=== PATIENT | male | born 1970 | race Caucasian/White ===

== ENCOUNTER → 2018-04-13 12:25 | Outpatient (CLI) | payer OTHER, SELFPAY ==
--- NOTE | 2018-04-13 12:28 | RAD_ITS ---
STUDY: X-RAY - THORACIC SPINE REASON FOR EXAM: Male, 47 years old. Back pain. Injury. TECHNIQUE: 3 view(s) of the thoracic spine were obtained. COMPARISON: None. FINDINGS: Normal kyphosis of the thoracic spine. There is no substantial scoliosis. Normal thoracic vertebrae and endplates. Normal disc space heights. The soft tissue structures are unremarkable. RAD/Thoracic Spine 3 Views IMPRESSION: Normal x-ray examination of the thoracic spine. Electronically Signed: Frank Vivar MD at 23:08 EDT , Service support ,
--- NOTE | 2018-04-13 12:28 | RAD_ITS ---
STUDY: X-RAY - CERVICAL SPINE REASON FOR EXAM: Male, 47 years old. Neck and back pain. TECHNIQUE: 5 view(s) of the cervical spine were obtained. COMPARISON: None FINDINGS: Normal anterior atlantoaxial articulation. Normal odontoid process. Normal cervical lordosis. Normal vertebral bodies and endplates. Normal disc space heights. Normal visualized intervertebral neuroforamina. The soft tissue structures are unremarkable. There is no demonstrated fracture of the cervical spine. RAD/Cerv Spine 4 or 5 Views IMPRESSION: Normal x-ray examination of the visualized cervical spine. Electronically Signed: Frank Vivar MD at 23:21 EDT , Service support ,
--- NOTE | 2018-04-13 12:28 | CT_ITS ---
STUDY: CT BRAIN WITHOUT CONTRAST REASON FOR EXAM: Male, 47 years old. Nausea following a recent head injury.. RADIATION DOSAGE (If Supplied By Facility): CTDIvol = ( 44.99 ) mGy, DLP = ( 782.05 ) mGycm TECHNIQUE: Transaxial CT imaging of the brain was performed without administration of intravenous contrast material. Individualized dose optimization techniques were used for this CT. COMPARISON: None. FINDINGS: Focal soft tissue swelling overlying the left occipital bone. Normal calvarium. Normal size ventricles and extra-axial spaces for the patient's age. Normal white matter tracts of the cerebral hemispheres. Normal basal ganglia and thalami. Normal brainstem. Normal cerebellum. There is no intracranial hemorrhage. There are no findings of an acute ischemic infarction. Normal visualized paranasal sinuses. CT/Brain/Head without Contrast IMPRESSION: Normal unenhanced CT scan of the brain. Electronically Signed: Edmond Judd MD at 13:22 EDT Tel [phone], Service support ,
[2018-04-13 12:53] LABS: ALB/GLOB Ratio 1.2 RATIO (0.9-2.4); AST(SGOT) 13 U/L (15-37); Alanine Aminotransfer ALT/SGPT 23 U/L (16-61); Albumin, Serum 4.2 g/dL (3.2-5.0); Alkaline Phosphatase 52 U/L (45-117); Anion Gap 5 (5-15); BUN 16 mg/dL (7-18); BUN/Creat Ratio 13.4 RATIO (10-20); Chloride 103 mmol/L (98-107); Creatinine, Serum 1.19 mg/dL (0.70-1.30); EST Glomerular Filtration Rate 69 mL/min (>60); Est Glom Filt Rate - Afr Amer 84 mL/min (>60); Globulin 3.4 g/dL (2.2-4.2); Glucose 88 mg/dL (74-106); Protein, Total 7.6 g/dL (6.4-8.2); Sodium Level 139 mmol/L (136-145)
== END ==
PROVIDERS: Family Provider Internal Medicine; PCP Internal Medicine; Visit Provider Nurse Practitioner Gerontology
DX: S09.90XA Unspecified injury of head, initial encounter (principal); M54.2 Cervicalgia; M54.9 Dorsalgia, unspecified; R51 Headache
CPT/HCPCS: 70450; 72050; 72072; 80053

== ENCOUNTER → 2018-08-31 16:38 | Outpatient (CLI) | payer OTHER, SELFPAY ==
--- NOTE | 2018-08-31 16:43 | US_ITS ---
STUDY: SOFT TISSUE NECK ULTRASOUND REASON FOR EXAM: Male, 48 years old. Painful lump over left clavicle TECHNIQUE: Ultrasound evaluation of the soft tissues of the neck was performed with real-time and static beckman-scale imaging. COMPARISON: None. FINDINGS: There is a 1.1 x 0.9 cm vascular hypoechoic lesion in the soft tissues overlying the left clavicle. This may represent a lymph node. However, a soft tissue mass cannot be excluded. Further evaluation with CT is recommended. US/Head/Neck Soft Tissue IMPRESSION: 1.1 x 0.9 cm vascular hypoechoic lesion in the soft tissues overlying the left clavicle. This may represent a lymph node. However, a soft tissue mass cannot be excluded. Further evaluation with CT is recommended. Electronically Signed: Ashok Farnsworth, at 18:14 EST Tel , Service support ,
== END ==
PROVIDERS: Family Provider Internal Medicine; PCP Internal Medicine; Referring Provider Nurse Practitioner Gerontology; Visit Provider Nurse Practitioner Gerontology
DX: R22.1 Localized swelling, mass and lump, neck (principal)
CPT/HCPCS: 76536

== ENCOUNTER → 2018-09-15 14:41 | Outpatient (CLI) | payer OTHER, SELFPAY ==
--- NOTE | 2018-09-15 14:47 | CT_ITS ---
STUDY: CT SOFT TISSUE NECK WITH CONTRAST REASON FOR EXAM: Male, 48 years old. Left supraclavicular mass. RADIATION DOSAGE (If Supplied By Facility): CTDIvol = ( 15.12 ) mGy, DLP = ( 449.20 ) mGycm TECHNIQUE: The patient was scanned in a multi-detector CT scanner. High resolution transaxial imaging was performed following intravenous administration of 100ml ml of Isovue 300 contrast material. Sagittal and coronal images were reconstructed. Individualized dose optimization techniques were used for this CT. COMPARISON: None. FINDINGS: Normal bilateral parotid glands. Normal bilateral languages and literature instructor spaces. Normal bilateral parapharyngeal spaces. There is mild fullness of the left carotid space which may represent small nodes. No focal mass however is definitely identified. Normal bilateral sublingual and submandibular glands and spaces. Normal visualized nasopharynx. Normal retropharyngeal space. Normal perivertebral space. Normal visualized bilateral faucial tonsils. The visualized tongue, tongue base and oropharynx are normal. The visualized cervical lymph nodes (levels I-) are within normal size limits, and maintain normal morphology. There is a 2 cm nodule in the left supraclavicular region there is a visualized due to significant adjacent artifacts best seen on axial images 12-18 series 2 is also seen on coronal images 58-63 series 602. There is otherwise no abnormal contrast enhancement. Normal epiglottis, bilateral vallecula and hypopharynx. The pre-epiglottic and paraglottic adipose spaces are normal. Normal visualized bilateral piriform sinuses, aryepiglottic folds, vocal cords, and arytenoid-cricoid articulations. Normal subglottic trachea. Normal bilateral lobes of the thyroid gland. Normal visualized pulmonary apices. Normal visualized paranasal sinuses. Normal visualized cervical spine. CT/Soft Tissue Neck WITH Contrast IMPRESSION: 1. Small mass in the left supraclavicular region as described above corresponding to the palpable abnormality. Again could represent prominent node. Other etiologies are not excluded. 2. Probable small nodes on the left side of the neck. Electronically Signed: Cristóbal Kaur MD at 15:07 EST Tel , Service support ,
== END ==
PROVIDERS: Family Provider Internal Medicine; PCP Internal Medicine; Referring Provider Internal Medicine; Visit Provider Internal Medicine
DX: R22.1 Localized swelling, mass and lump, neck (principal)
CPT/HCPCS: 70491; Q9967

== ENCOUNTER 2018-09-28 11:06 | Day surgery (SDC) | payer OTHER, SELFPAY ==
[2018-09-22 14:58] VITALS: BMI 23.1
[2018-09-27 15:15] LABS: Erythrocyte Sedimentation Rate 2 mm/hr (0-15)
[2018-09-27 15:18] LABS: Absolute Lymphocyte Count 1.38 X10^3/ul (0.83-4.51); Absolute Neutrophil Count 2.8 X10^3/uL (2.0-7.7); Basophil# 0.02 X10^3/uL; Basophil% 0.4 % (0-1); Eosinophil# 0.09 X10^3/uL; Eosinophils% 1.8 % (0-5); Hematocrit 41.7 % (40-54); Hemoglobin 14.1 g/dl (13.0-16.5); Lymphocyte # 1.38 X10^3/ul (4.0); Mean Corp Hgb Conc 33.8 g/gl (32-36); Mean Corpuscular Hgb 31.3 pg (27.0-32.0); Mean Corpuscular Volume 92.7 fL (80-94); Mean Platelet Vol. 10.8 fl (6.2-12.0); Monocyte% 12.2 % (0-10); Neutrophil # 2.81 X10^3/uL (2.7-7.7); Neutrophil % 57.2 % (47-70); POSITIVE COUNT NO; POSITIVE DIFFERENTIAL NO; POSITIVE MORPHOLOGY NO; Platelet Count 285 K/mm3 (150-450); RBC Distribution Width CV 12.4 % (11.6-14.6); RBC Distribution Width SD 41.2 fl (35.1-43.9); White Blood Count 4.9 K/mm3 (4.4-11.0)
[2018-09-27 15:48] LABS: Anion Gap 6 (5-15); BUN 13 mg/dL (7-18); BUN/Creat Ratio 12.6 RATIO (10-20); Calcium,Total 8.9 mg/dL (8.5-10.1); Chloride 102 mmol/L (98-107); Creatinine, Serum 1.03 mg/dL (0.70-1.30); EST Glomerular Filtration Rate 82 mL/min (>60); Est Glom Filt Rate - Afr Amer 99 mL/min (>60); Glucose 59 mg/dL (74-106); Sodium Level 139 mmol/L (136-145)
[2018-09-28] VITALS (11 sets, daily range): BP systolic 85–129; BP diastolic 60–85; PULSE 52–66; RESP 16; TEMP 36.3–37.1; O2SAT 96–100; BMI 21.9
--- NOTE | 2018-09-28 | IMM_PTH ---
PATIENT: JAYDA CHONG LOC: [facility] [place] U#:[id number] AGE/SX: 48/M ROOM: RE09/28/[address]: Dr. Ricky Meyer MD : 1970 BED: DIS: 09/28/2018 SPEC #: [id number] RECD: 09/29/18 12:13 STATUS: LLOYD REFranki #: [id number] KAREN: 09/28/18 00:[address]: Ricky Meyer DEPT: IMMUNOHISTOCHEMISTRY RECD BY: Vanesa Rivas ENTERED: 09/29/18 12:16 SP TYPE: IMMUNO OTHR DR: Dr. Graciela Pedraza DO Tissues: Lymph node, NOS Procedures: CD138 (add) CD20 (add) CD3 (add) CD43 (add) CD45 (add) CD5 (add) CD79A (add) KI-67 (add) MACRO (add) P53 (add) Pankeratin (initial) PHYSICIAN & INSTITUTION [place] [phone] SPECIMEN INFORMATION: Tissue Source: Left supraclavicular lymph node Clinical Info: Supraclavicular adenopathy Specimen Number: [id number] #2 CPT code: 69258, 22394 x10 METHODOLOGY: Deparaffinized sections of prefer/formalin-fixed tissue or PAP/DQ stained slides are incubated with monoclonal/polyclonal antibodies/oligonucleotide probes. Localization is made via biotin free immunoperoxidase method. Appropriate controls are performed and reacted as expected. Results on target cell population are indicated in the following table: RESULTS: ANTIBODY / CLONE RESULT Block #2 AE1-3 (AE1/AE3/PCK26) negative CD3 (PS1) positive, zonal CD5 (SP10) positive, zonal CD20 (L26) positive, zonal CD43 (L60) positive, zonal CD45 (RP2/18) positive CD79a (11E3) positive, zonal CD138 (B-A38) positive, focal Macro (HAM-56) positive Ki-67 (30-9) positive, low P53 (DO-7) negative These tests were developed and their performance characteristics determined by [facility]. They may not have been cleared or approved by the U.S. Food and Drug Administration. The FDA has determined that such clearance or approval is not necessary. INTERPRETATION: Left supraclavicular lymph node, biopsy: Consistent with benign reactive lymph node tissue Commnet: Black pigment is present and is consistent with tattoo dye/pigment. Clinical correlation is suggested. AM:mayda 10/02/18
--- NOTE | 2018-09-28 13:39 | DCINST_ITS ---
Discharge Diet: Light diet - advance as tolerated - if you have questions about your diet instructions, please talk to you doctor. Discharge Activity: May Not Drive - for today or while taking narcotic pain medicine. May shower in (days): 1 Lifting Restrictions: 10 pounds Call your doctor if your incision/area has: Continuous Slow Oozing, Sudden Increased Bleeding, Increased Pain/ Swelling, Increased Redness, Foul Smelling Discharge Call your doctor if you observe: Fever of 101 or Higher Suture Line Care: Avoid Pulling/Pushing, Avoid Pinching/Bending Additional Dressing/Incision Instructions:: Change or remove dressing in 4 days. Leave steri-strips in place for 1 week. Allergies/Adverse Reactions: Allergies No Known Allergies Allergy (Verified 09/27/18 08:11) Medications to take at Discharge citalopram 40 mg tablet 40 mg PO DAILY 09/22/18 traMADol [Ultram (G)] 100 mg PO Q6H PRN PRN 09/27/18 Quinapril HCl 20 mg PO DAILY 09/28/18 Primary Care Physician: Graciela Pedraza DO [Primary Care Provider] - Test Results: Test results from this visit will be discussed in further detail at your follow- up appointment, if applicable. Please Follow Up With: Ricky Meyer MD - [phone] When: Call to make an appointment to be seen in about 7 days.
[2018-09-28] MEDS: Bupivacaine Mpf 0.5% 30 ML VIAL (13:45)
--- NOTE | 2018-09-28 13:55 | LYM_PTH ---
PATIENT: JAYDA CHONG [place] [facility] [place][id number] AGE/SX: 48/M ROOM: RE09/28/[address]: Dr. Ricky Meyer MD : 1970 BED: DIS: 09/28/2018 SPEC #: [id number] RECD: 09/28/18 14:10 STATUS: LLOYD CHIO #: [id number] KAREN: 09/28/18 13:[address]: Ricky Meyer DEPT: SURGICAL PATHOLOGY RECD BY: Romel Marcelino ENTERED: 09/29/18 04:56 SP TYPE: LYM NODES OTHR DR: Dr. Graciela Pedraza DO Tissues: Lymph node of neck, NOS Procedures: PAS Fungus (control) Special Stain Group I Surgery Specimen Level IV AFB Stain (control) Diff Quik Stain (control) H & E (control) HEADER OPERATION: Supraclavicular lymph node biopsy PRE-OP DIAGNOSIS: Supraclavicular adenopathy TISSUE SUBMITTED: Left supraclavicular lymph node sent fresh for lymph node protocol (patient has a large tattoo in that area) MICROSCOPIC DIAGNOSIS Left supraclavicular lymph node, biopsy: Acute inflammation with black pigment deposition. Focal necrotizing and non-necrotizing granulomatous inflammation. Negative for acid-fast bacilli and fungal organisms. No evidence of malignancy. AM:sai 09/29/18 COMMENT Immunohistochemistry ([id number]) supports the above diagnosis. There is no evidence of a lymphoproliferative disorder. FLOW analysis supports the above diagnosis. The complete flow report is viewable in patient's EMR. AFB and PASF stains with matched controls support the above diagnosis. Executive Secretary Social Welfare touch preps (H & E and Diff-Quik stains) are prepared and show a polymorphous lymphocytic population. Black pigment in the tissue is consistent with recent tattoo. Clinical correlation is suggested. MICROSCOPIC DESCRIPTION Slides are reviewed. GROSS DESCRIPTION Received fresh for lymph node protocol labeled with the patient's name is a specimen designated left lymph node, supraclavicular. The specimen consists of an ovoid piece of hargrove soft tissue with bluish-black dye discoloration measuring 1.5 x 1 x 1 cm. A section is submitted for flow cytometry studies. Four touch imprints are prepared, two stained with Diff-Quik and two stained with H & E. The entire specimen is submitted in two cassettes. / JOSE ALFREDO:sai 09/28/18 TC:2 CPT: 38260, 31222, 25672 x2
--- NOTE | 2018-09-28 14:13 | PCM.OPRPT ---
Problem List (1) Supraclavicular adenopathy Status: Acute Report of Operation Date of Procedure: 09/28/18 Pre-Operative Diagnosis: Left supraclavicular adenopathy Post-Operative Diagnosis: Same Surgery/Procedure Performed:: Excisional biopsy of left supraclavicular lymph node Description of Surgical Findings:: Timeout and informed consent was obtained. 48-year-old gent was taken to the operative room placed upon the table. He underwent monitored anesthesia care. Left supraclavicular area was sterilely prepped and draped with ChloraPrep. 1% lidocaine mixed 50-50 with 0.5% Marcaine was used as a local anesthetic. A total of 10 cc was used. A transverse incision was made directly over the lymph node. Sharp dissection carried down through the subcu tissue. Great care was taken to carefully spread to the chest to to avoid any neurovascular structures. A 2-0 Vicryl suture was placed in lymph node to use for retraction. Circumferential dissection performed. The became apparent that the lymph node appeared to be pigmented. Patient has a very large left anterior chest tattoo and significant proximity to this area. It is felt likely to have discoloration of the lymph node secondary to the tattoo. Using sharp dissection electrocautery dissection I was able to completely excise the palpable nodule again consistent with a lymph node. Hemostasis was intact. Fascial layers were approximated with interrupted 3-0 Vicryl. Subdermal edges approximate the same. Skin edges proximal a running septic or 4-0 Monocryl. Steri-Strip Telfa and OpSite dressings applied. Sponge and instrument and needle were reported to the surgeon to be correct. Blood loss was minimal. He tolerated procedure well without apparent complication. Specimen includes lymph node. Portion was sent for Gram stain culture and sensitivity aerobic anaerobic and fungal. Another portion was sent in saline for pathologic evaluation. Drains none. Blood loss minimal. Ricky Meyer M.D., F.A.C.S. Type of Anesthesia:: Local MAC Anesthesiologist: Oskar Salmon
--- OUTSIDE RECORDS SUMMARY | 2018-12-03 02:28 | XMS RPT_ITS | Continuity of Care Document ---
:1970 Author Organization [facility] Address [facility] [address] [place] [address] Phone Care Team Providers Name Role Phone Graciela Pedraza DO Unavailable Dr. 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) Status: Active Anxiety (F41.9, 300.00) Status: Active BMI 22.0-22.9, adult (Z68.22, V85.1) Status: Active BMI 23.0-23.9, adult (Z68.23, V85.1) Status: Active Decreased libido (R68.82, 799.81) Comments: will try 5mg celxa adn see if that helps if not pt willing to wean off bc thinks depressionis better with stressor better Status: Active Elevated right ventricular end-diastolic pressure (R94.30, 794.30) Comments: new dx-- do sleep study anival with h/o of wittnessed apnea and snoring Status: Active Encounter for routine history and physical exam for male (Z00.00, V70.0) Comments: will get colonscopy with colon cancer in family. will do psa. diong well. not using tobacco. drinking etoh less. Status: Active Encounter for screening for malignant neoplasm of prostate (Renamed from Screening for prostate cancer) (Z12.5, V76.44) Status: Active Encounter for well adult exam with abnormal findings (Renamed from Encounter for general adult medical examination with abnormal findings) (Z00.01, V70.0) Status: Active Family history of colon cancer (Z80.0, V16.0) Comments: pt last scope 2014- repeat in 5yrs - dr terry Status: Active Hematuria (R31.9, 599.70) Status: Active Hypertension, benign (I10, 401.1) Status: Active Influenza vaccination declined (Renamed from Refused influenza vaccine) (Z28.21, V64.06) Status: Active Mitral valve insufficiency and aortic valve insufficiency (I08.0, 396.3) Status: Active Non-smoker (Z78.9, V49.89) Status: Active Witnessed apneic spells (R06.81, 786.03) Comments: pt deferred any further w/u right now with work stress-- decided to ultimately not do Status: Active Medications Name Dates Details Accuretic 20-12.5 MG Oral Tablet 1 Tablet QD for 0 days Quantity: 90 {Tablet} Refills: 3 Ordered:17-May-2018 Ananya Pedraza DO, DO, Kathleen Start : 17-May-2018 Active Accuretic 20-12.5 MG Oral Tablet 1 Tablet QD for 30 days Quantity: 30 {Tablet} Refills: 5 Ordered:17-May-2018 Ananya Pedraza DO, DO, Kathleen Start : 17-May-2018 Active Citalopram Hydrobromide 10 MG Oral Tablet 1 (one) Tablet qhs for 0 days Quantity: 30 {Tablet} Refills: 3 Ordered:18-Jul-2018 Eli Huntley Start : 18-Jul-2018 Active ATIVAN, 0.5MG (Oral Tablet) 1 Tablet qd prn for 0 days Quantity: 20 {Tablet} Refills: 0 Ordered:12-Mar-2013 Ragini Young LPN Start : 29-Jun-2010 End : 12-Mar-2013 Inactive AUGMENTIN, 875-125MG (Oral Tablet) 1 (one) Tablet BID for 7 days Quantity: 14 {Tablet} Refills: 0 Ordered:29-Dec-2006 Eli Lacey Start : 29-Dec-2006 End : 06-Jan-2007 Inactive BLEPH-10, 10% (Ophthalmic Solution) 1 Drop(s) q2-3 hr x 7-10 days for 0 days Quantity: 1 {Solution} Refills: 0 Ordered:12-Mar-2013 Ragini Young LPN Start : 28-Aug-2012 End : 12-Mar-2013 Inactive CELEBREX, 200MG (Oral Capsule) 1 (one) Capsule daily for 0 days Quantity: 30 {Capsule} Refills: 0 Ordered:13-Jan-2015 Eli Huntley Start : 05-Jul-2014 End : 13-Jan-2015 Inactive CELEXA, 20MG (Oral Tablet) 1 (one) Tablet QD for 0 days Quantity: 30 {Tablet} Refills: 4 Ordered:12-Mar-2013 Ragini Young LPN Start : 21-Jul-2010 End : 12-Mar-2013 Inactive CYCLOBENZAPRINE HCL, 5MG (Oral Tablet) 1 (one) Tablet bid as needed for 0 days Quantity: 30 {Tablet} Refills: 0 Ordered:13-Jan-2015 Eli Huntley Start : 05-Jul-2014 End : 13-Jan-2015 Inactive Comments:Medication taken as needed. start once at night if needed DEPLIN, 15MG (Oral Tablet) 1 Tablet qd for 30 days Refills: 0 Ordered:21-Jul-2010 CAMACHO Mendes Start : 29-Jun-2010 End : 21-Jul-2010 Inactive No Known Historical Medications TAMIFLU, 75MG (Oral Capsule) 1 (one) Capsule bid for 5 days Quantity: 10 {Capsule} Refills: 0 Ordered:05-Jul-2014 Ananya Pedraza DO, DO, Kathleen Start : 10-Oct-2013 End : 15-Oct-2013 Inactive [place]-D 24 HOUR, 180-240MG (Oral Tablet Extended Release 24 Hour) 1 (one) Tablet ER 24HR Daily for 0 days Refills: 0 Ordered:21-Dec-2006 Eli Lacey Start : 21-Dec-2006 End : 11-May-2007 Discontinued BIAXIN XL, 500MG (Oral Tablet Extended Release 24 Hour) 2 (two) Tablet ER 24HR qd for 0 days Quantity: 20 {Tablet_ER_24HR} Refills: 0 Ordered:11-Oct-2007 CAMACHO Mendes Start : 11-Oct-2007 End : 04-Apr-2008 Discontinued FEXOFENADINE HCL, 180MG (Oral Tablet) 1 (one) Tablet Daily for 0 days Quantity: 30 {Tablet} Refills: 0 Ordered:29-Dec-2006 Eli Lacey Start : 29-Dec-2006 End : 11-May-2007 Discontinued LEXAPRO, 10MG (Oral Tablet) 1 Tablet Daily for 0 days Quantity: 30 {Tablet} Refills: 3 Ordered:20-Jul-2007 Vicky Waggoner Start : 20-Jul-2007 End : 11-Oct-2007 Discontinued NASACORT AQ, 55MCG/ACT (Nasal Aerosol Solution) 2 (two) [place](s) Daily for 0 days Quantity: 1 {Aerosol_Soln} Refills: 0 Ordered:21-Dec-2006 Eli Lacey Start : 21-Dec-2006 End : 11-May-2007 Discontinued PROVENTIL HFA, 108 (90 Base)MCG/ACT (Inhalation Aerosol Solution) 2 (two) Aerosol Soln qid prn for 0 days Quantity: 1 {Aerosol_Soln} Refills: 0 Ordered:11-Oct-2007 CAMACHO Mendes Start : 11-Oct-2007 End : 04-Apr-2008 Discontinued Allergies and Adverse Reactions Name Dates Details No Known Allergies (Allergy) Onset: 13-Jan-2015 Status: Active No Known Drug Allergies (Allergy) Status: Active Past Medical History Name Dates Details Acute sinusitis, unspecified (J01.90, 461.9) Comments: Another round of antibiotics Status: Resolved as of 27-Sep-2008 Allergic rhinitis (J30.9, 477.9) Status: Inactive as of 27-Sep-2008 Back pain (M54.9, 724.5) Status: Resolved as of 10-May-2018 Body aches (R52, 780.96) Status: Inactive as of 02-Apr-2016 Bronchitis, acute (J20.9, 466.0) Status: Resolved as of 27-Sep-2008 Chills (R68.83, 780.64) Status: Inactive as of 02-Apr-2016 Depressive disorder (F32.9, 311) Comments: better Status: Resolved as of 27-Sep-2008 Eustachian tube dysfunction (H69.80, 381.81) Status: Resolved as of 27-Sep-2008 Fever (R50.9, 780.60) Status: Inactive as of 02-Apr-2016 Head injury (S09.90XA, 959.01) Status: Resolved as of 10-May-2018 Headache (R51, 784.0) Status: Resolved as of 10-May-2018 Hypotension, unspecified (I95.9, 458.9) Status: Inactive as of 02-Apr-2016 Low back pain (M54.5, 724.2) Comments: had xray and taking advil seeing chiropracter, these not helpingrefrigerator vs man accident while lifting had PT from chiropractor then reinjured Status: Inactive as of 02-Apr-2016 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, 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) Status: Resolved as of 26-Apr-2016 Neck pain (M54.2, 723.1) Status: Resolved as of 10-May-2018 Other and unspecified alcohol dependence, unspecified drinking behavior (F10.20, 303.90) Status: Resolved as of 27-Sep-2008 Other anxiety states (F41.1, 300.09) Status: Resolved as of 02-Apr-2016 Other chest pain (R07.89, 786.59) Comments: [facility]--had stress 8- 08 negative Status: Resolved as of 27-Sep-2008 Other peripheral vertigo (H81.399, 386.19) Status: Resolved as of 27-Sep-2008 Pharyngitis, acute (J02.9, 462) Status: Inactive as of 02-Apr-2016 Serous conjunctivitis, unspecified laterality (H10.239, 372.01) Status: Inactive as of 02-Apr-2016 Stress reaction (F43.0, 308.9) Comments: wean celexa -- at least partially for now and see if helps libidio Status: Resolved as of 10-May-2018 Urine protein increased (R80.9, 791.0) Status: Inactive as of 30-May-2017 Weight loss (R63.4, 783.21) Comments: follow up in 1 month- if wt loss continues consider lab work uprelated to anxiety? Status: Resolved as of 27-Sep-2008 Wheezing (R06.2, 786.07) Status: Resolved as of 27-Sep-2008 WMV Comments: talk about upt to date had chol screen Status: Inactive as of 18-Feb-2009 Wrist pain (719.43) Comments: Ulner pain ? 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 [address] Brain/Head without Contrast MR#: [id number] Acct: [id number] Name: JAYDA JEFFERY Rep #: [id number] : 1970 M 47 From: Edmond Judd MD PCP: Graciela Pedraza DO Status: REG CLI Study: Brain/Head without Contrast Date of Exam: 04/13/18 Exam# [id number] Ordering Dr: Chayo Monet P-C STUDY: CT BRAIN WITHOUT CONTRAST REASON FOR EXAM: Male, 47 years old. Nausea following a recent head injury.. RADIATION DOSAGE (If Supplied By Facility): CTDIvol = ( 44.99 ) mGy, DLP = ( 782.05 ) mGycm TECHNIQUE: Transaxial CT imaging of the brain was performed without administration of intravenous contrast material. Individualized dose optimization techniques were used for this CT. COMPARI SON: None. FINDINGS: Focal soft tissue swelling overlying the left occipital bone. Normal calvarium. Normal size ventricles and extra-axial spaces for the patient's age. Normal white matter tracts of the cerebral hemispheres. Normal basal ganglia and thalami. Normal brainstem. Normal cerebellum. There is no intracranial hemorrhage. There are no findings of an acu te ischemic infarction. Normal visualized paranasal sinuses. CT/Brain/Head without Contrast IMPRESSION: Normal unenhanced CT scan of the brain. Electronically Signed: Edmond Judd MD at 13:22 EDT Tel [phone], Service support , CC: VIVIAN Monet; Graciela Pedraza DO Linen Room Custodian: Signed 13-Apr-2018 Cerv Spine 4 or 5 Views Result: Comments: See Note; NOTES: [facility] Imaging Services [address] [place] [address] Cerv Spine 4 or 5 Views MR#: [id number] Acct: [id number] Name: JAYDA JEFFERY Rep #: [id number] : 1970 M 47 From: Frank Vivar MD PCP: Graciela Pedraza DO Status: REG CLI Study: Cerv Spine 4 or 5 Views Date of Exam: 04/13/18 Exam# [id number] Ordering Dr: Chayo Monet STUD Y: X-RAY - CERVICAL SPINE REASON FOR EXAM: Male, 47 years old. Neck and back pain. TECHNIQUE: 5 view(s) of the cervical spine were obtained. COMPARISON: None FIND INGS: Normal anterior atlantoaxial articulation. Normal odontoid process. Normal cervical lordosis. Normal vertebral bodies and endplates. Normal disc space heights. Normal visualized intervertebral ne uroforamina. The soft tissue structures are unremarkable. There is no demonstrated fracture of the cervical spine. RAD/Cerv Spine 4 or 5 Views I MPRESSION: Normal x-ray examination of the visualized cervical spine. Electronically Signed: Frank Vivar MD at 23:21 EDT , Service support , Fax CC: VIVIAN Monet; Graciela Pedraza DO Linen Room Custodian: Signed 13-Apr-2018 Thoracic Spine 3 Views Result: Comments: See Note; NOTES: [facility] Imaging Services [address] [place] [address] Thoracic Spine 3 Views MR#: [id number] Acct: [id number] Name: JAYDA JEFFERY Rep #: [id number] : 1970 M 47 From: Frank Vivar MD PCP: Graciela Pedraza DO Status: REG CLI Study: Thoracic Spine 3 Views Date of Exam: 04/13/18 Exam# [id number] Ordering Dr: Chayo Monet STUDY: X-RAY - THORACIC SPINE REASON FOR EXAM: Male, 47 years old. Back pain. Injury. TECHNIQUE: 3 view(s) of the thoracic spine were obtained. COMPARISON: None. FINDIN GS: Normal kyphosis of the thoracic spine. There is no substantial scoliosis. Normal thoracic vertebrae and endplates. Normal disc space heights. The soft tissue structures are unremarkable. RAD/Thoracic Spine 3 Views IMPRESSION: Normal x-ray examination of the thoracic spine. Electronically Signed: Frank Vivar MD at 23:08 EDT , Service support , CC: MEMBERSHIP COUNSELORPadmini Monet; Graciela Pedraza DO Linen Room Custodian: Signed 13-May-2017 Echocardiogram Complete Result: Comments: See Note; NOTES: [facility] Cardiovascular Services [address] [place] [address] Echo Complete 05/13/17 1303 MR#: [id number] Acct: [id number] Name: JAYDA JEFFERY Rep #: [id number] : 1970 46 From: Leno Layne MD Attending Dr: Graciela Pedraza DO Status: REG CLI Ordering Dr: Graciela Pedraza DO Date: 05/13/17 Location: [facility] Sex: M C Admitted: [place] son For Study: MV Insufficiency Procedure This was a 2D Doppler, Color Flow transthoracic echocardiogram. The exam was of adequate technical quality. Exam performed in department. Left Ventricle Vanessa l LV size. Mild concentric left ventricular hypertrophy. Left ventricular systolic function is normal. The estimated ejection fraction is 65 %. No regional wall motion abnormalities noted. Right Ventri jazz Normal RV size. Normal systolic function. Atria Normal left atrium. Normal right atrium. No doppler evidence for ASD. Mitral Valve There is no mitral annular calcification. Mild mitral valve prola pse, posterior leaflet. Trivial mitral valve insufficiency. Tricuspid Valve Normal tricuspid valve. Trivial tricuspid valve insufficiency. Right ventricular systolic pressure estimated to be 36 mmHg. Aortic Valve Trisinus/trileaflet aortic valve. Normal aortic valve. Trivial aortic valve insufficiency. Pulmonic Valve Normal pulmonic valve. Trivial pulmonic valve insufficiency. Great Vessels Normal sized aortic root. Pericardium/Pleural No pericardial effusion. MMode/2D Measurements AND Calculations LVIDd: 4.4 cm IVSd: 1.3 cm Ao root diam: 3.5 cm LVIDs: 2.9 cm LVPWd: 1.3 cm RVDd: 3.4 cm FS: 34.0 % LAV(MOD-bp): 53.6 ml LA A4 area: 16.3 cm2 RA A4 area: 12.7 cm2 LAV(MOD-bp) Indexed: 27.4 ml/m2 LAV(MOD-sp2): 48.5 ml LAV(MOD-sp4): 49.6 ml Doppler Measurements AND Calculations MV E max linden: 61.7 cm/sec Lat Peak E' Linden: 9.8 cm/sec Med Peak E' Linden: 7.5 cm/sec MV A max linden: 50.1 cm/sec E/E' lat: 6.3 E/E' med: 8.2 MV E/ A: 1.2 Ao V2 max: 108.1 cm/sec LV V1 max: 93.4 cm/sec PA V2 max: 87.6 cm/sec Ao max P.7 mmHg LV V1 max P.5 mmHg PI end-d linden: 94.1 cm/sec TR max linden: 286.4 cm/sec TR max P.8 mmHg Interpretation Summary Left ventricular systolic function is normal. The estimated ejection fraction is 65 %. Mild concentric left ventricular hypertrophy. Mild mitral valve prolapse, posterior leaflet Trivial mitral valve insufficiency. Trivial tric uspid valve insufficiency. Trivial aortic valve insufficiency. Trivial pulmonic valve insufficiency. Right ventricular systolic pressure estimated to be 36 mmHg. Ordering Physician: Graciela Pedraza Performed By: Irma Carrasco RDCS, RVT 05/13/17 165 Date Leno Layne MD CC: Graciela Pedraza DO Date Dictated: 05/13/17 1303 Date Transcribed: 05/13/17 1928 Linen Room Custodian: Signed 02-Apr-2016 ELECTROCARDIOGRAM, COMPLETE (ECG) (33470) Comments: nsr no acute chg Result: [MEASUREMENTS ANALYSIS] Date of Test: 04/02/2016 14:47:54; Heart Rate: 81; IN Interval: 126; QRS: 92; QT Interval: 360; Corrected QT Interval (QTc): 396; P Wave Kellogg: 30; QRS Wave Kellogg: 27; T Wave Kellogg: -1; Blood Pressure: 148/102 [ECG DIAGNOSTIC STATEMENTS] Date of Test: 04/02/2016 14:47:54; Summary: Sinus Rhythm WITHIN NORMAL LIMITS Family History Unknown Family Member Name Dates Details Brother 1 Comments: older, heart palp, Status: Active Brother 2 Comments: healthy Status: Active Family Members In General Comments: HBP, Heart/Lung disease Status: Active Father Comments: htn, CAD/CAB start 50's Status: Active Mother Comments: colon cancer, migraines HTN, depression, Status: Active Sister 1 Comments: colon cancer at 49 yo Status: Active Social History Name Dates Details Alcohol Use Comments: use to binge more now on weekends may have 6 beers. much better than was. more social Status: Active Caffeine Use Comments: 2 QD Status: Active Exercise History Comments: Light, walks at work Status: Active Living Situation Comments: Lives with spouse Status: Active Most Recent Primary Occupation Comments: workign for [employer]. Status: Active No Drug Use Status: Active Number of Child (age 0-17) Dependents Comments: 1 Status: Active Tobacco Use Comments: Uses chewing tobacco - Not often--quit 2005 Status: Active Vital Signs Date Test Result Details [id number] Pulse 68 /min Comments: Pattern: Regular Respiration Rate 18 /min Comments: Pattern: Unlabored O2 SAT 98 % Comments: Room air BP Systolic 118 mm[Hg] Comments: Patient Position: Sitting; Cuff Location: Left Arm; Cuff Size: Large BP Diastolic 68 mm[Hg] Comments: Patient Position: Sitting; Cuff Location: Left Arm; Cuff Size: Large Weight 156 lb Height 71 in Body Mass Index Calculated 21.76 kg/m2 Body Surface Area Calculated 1.9 m2 :04 Temperature 97.5 f Comments: Method: Temporal Pulse 75 /min Comments: Pattern: Regular Respiration Rate 17 /min Comments: Pattern: Unlabored O2 SAT 98 % Comments: Room air BP Systolic 124 mm[Hg] Comments: Patient Position: Sitting; Cuff Location: Left Arm; Cuff Size: Standard BP Diastolic 78 mm[Hg] Comments: Patient Position: Sitting; Cuff Location: Left Arm; Cuff Size: Standard Weight 161.5 lb Height 71 in Body Mass Index Calculated 22.52 kg/m2 Body Surface Area Calculated 1.93 m2 :39 Pulse 71 /min Comments: Pattern: Regular Respiration Rate 18 /min Comments: Pattern: Unlabored O2 SAT 97 % Comments: Room air BP Systolic 124 mm[Hg] Comments: Patient Position: Sitting; Cuff Location: Left Arm; Cuff Size: Large BP Diastolic 82 mm[Hg] Comments: Patient Position: Sitting; Cuff Location: Left Arm; Cuff Size: Large Weight 161.5 lb Height 71 in Body Mass Index Calculated 22.52 kg/m2 Body Surface Area Calculated 1.93 m2 :55 Pulse 71 /min Comments: Pattern: Regular Respiration Rate 18 /min Comments: Pattern: Unlabored O2 SAT 97 % Comments: Room air BP Systolic 122 mm[Hg] Comments: Patient Position: Sitting; Cuff Location: Left Arm; Cuff Size: Standard BP Diastolic 70 mm[Hg] Comments: Patient Position: Sitting; Cuff Location: Left Arm; Cuff Size: Standard Weight 159 lb Height 71 in Body Mass Index Calculated 22.18 kg/m2 Body Surface Area Calculated 1.91 m2 :17 Pulse 82 /min Comments: Pattern: Regular Respiration Rate 18 /min Comments: Pattern: Unlabored O2 SAT 97 % Comments: Room air BP Systolic 110 mm[Hg] Comments: Patient Position: Sitting; Cuff Location: Left Arm; Cuff Size: Standard BP Diastolic 68 mm[Hg] Comments: Patient Position: Sitting; Cuff Location: Left Arm; Cuff Size: Standard Weight 164.375 lb Height 71 in Body Mass Index Calculated 22.93 kg/m2 Body Surface Area Calculated 1.94 m2 :37 Pulse 87 /min Comments: Pattern: Regular Respiration Rate 18 /min Comments: Pattern: Unlabored O2 SAT 98 % Comments: Room air BP Systolic 122 mm[Hg] Comments: Patient Position: Sitting; Cuff Location: Left Arm; Cuff Size: Large BP Diastolic 80 mm[Hg] Comments: Patient Position: Sitting; Cuff Location: Left Arm; Cuff Size: Large Weight 167.125 lb Height 71 in Body Mass Index Calculated 23.31 kg/m2 Body Surface Area Calculated 1.95 m2 :46 Pulse 77 /min Comments: Pattern: Regular Respiration Rate 18 /min Comments: Pattern: Unlabored O2 SAT 98 % Comments: Room air BP Systolic 128 mm[Hg] Comments: Patient Position: Sitting; Cuff Location: Left Arm; Cuff Size: Large BP Diastolic 82 mm[Hg] Comments: Patient Position: Sitting; Cuff Location: Left Arm; Cuff Size: Large Weight 165.25 lb Height 71 in Body Mass Index Calculated 23.05 kg/m2 Body Surface Area Calculated 1.94 m2 :50 Pulse 18 /min Comments: Pattern: Regular Respiration Rate 18 /min Comments: Pattern: Unlabored O2 SAT 97 % Comments: Room air BP Systolic 148 mm[Hg] Comments: Patient Position: Sitting; Cuff Location: Left Arm; Cuff Size: Standard BP Diastolic 102 mm[Hg] Comments: Patient Position: Sitting; Cuff Location: Left Arm; Cuff Size: Standard Weight 166.25 lb Height 71 in Body Mass Index Calculated 23.19 kg/m2 Body Surface Area Calculated 1.95 m2 :55 Pulse 83 /min Comments: Pattern: Regular Respiration Rate 16 /min Comments: Pattern: Unlabored O2 SAT 98 % Comments: Room air BP Systolic 122 mm[Hg] Comments: Patient Position: Sitting; Cuff Location: Left Arm; Cuff Size: Standard BP Diastolic 86 mm[Hg] Comments: Patient Position: Sitting; Cuff Location: Left Arm; Cuff Size: Standard Weight 164 lb Height 71 in Body Mass Index Calculated 22.87 kg/m2 Body Surface Area Calculated 1.94 m2 :20 Temperature 97.6 f Comments: Method: Temporal Pulse 83 /min Comments: Pattern: Regular Respiration Rate 18 /min Comments: Pattern: Unlabored O2 SAT 98 % Comments: Room air BP Systolic 142 mm[Hg] Comments: Patient Position: Sitting; Cuff Location: Left Arm; Cuff Size: Standard BP Diastolic 90 mm[Hg] Comments: Patient Position: Sitting; Cuff Location: Left Arm; Cuff Size: Standard Weight 158 lb Height 71 in Body Mass Index Calculated 22.04 kg/m2 Body Surface Area Calculated 1.91 m2 :52 Temperature 99.8 f Comments: Method: Oral Pulse 94 /min Comments: Pattern: Regular Respiration Rate 18 /min Comments: Pattern: Unlabored O2 SAT 98 % Comments: Room air BP Systolic 126 mm[Hg] Comments: Patient Position: Sitting; Cuff Location: Left Arm; Cuff Size: Large BP Diastolic 88 mm[Hg] Comments: Patient Position: Sitting; Cuff Location: Left Arm; Cuff Size: Large Weight 159.125 lb Height 71 in Body Mass Index Calculated 22.19 kg/m2 Body Surface Area Calculated 1.91 m2 :15 Temperature 99.2 f Comments: Method: Oral Pulse 84 /min Comments: Pattern: Regular Respiration Rate 16 /min O2 SAT 98 % Comments: Room air BP Systolic 138 mm[Hg] Comments: Patient Position: Sitting; Cuff Location: Left Arm; Cuff Size: Standard BP Diastolic 90 mm[Hg] Comments: Patient Position: Sitting; Cuff Location: Left Arm; Cuff Size: Standard Weight 159.125 lb Height 71 in Body Mass Index Calculated 22.19 kg/m2 Body Surface Area Calculated 1.91 m2 :55 Temperature 98.7 f Comments: Method: Oral Pulse 78 /min Comments: Pattern: Regular Respiration Rate 15 /min O2 SAT 98 % Comments: Room air BP Systolic 142 mm[Hg] Comments: Patient Position: Sitting; Cuff Location: Left Arm; Cuff Size: Standard BP Diastolic 88 mm[Hg] Comments: Patient Position: Sitting; Cuff Location: Left Arm; Cuff Size: Standard Weight 148.125 lb Height 71 in Body Mass Index Calculated 20.66 kg/m2 Body Surface Area Calculated 1.86 m2 :44 Pulse 80 /min Comments: Pattern: Regular Respiration Rate 20 /min Comments: Pattern: Unlabored BP Systolic 122 mm[Hg] Comments: Patient Position: Sitting; Cuff Location: Left Arm; Cuff Size: Large BP Diastolic 82 mm[Hg] Comments: Patient Position: Sitting; Cuff Location: Left Arm; Cuff Size: Large Weight 148.125 lb Height 71 in Body Mass Index Calculated 20.66 kg/m2 Body Surface Area Calculated 1.86 m2 :44 Pulse 76 /min Comments: Pattern: Regular Respiration Rate 16 /min Comments: Pattern: Unlabored BP Systolic 140 mm[Hg] Comments: Patient Position: Sitting; Cuff Location: Left Arm; Cuff Size: Standard BP Diastolic 88 mm[Hg] Comments: Patient Position: Sitting; Cuff Location: Left Arm; Cuff Size: Standard Weight 148 lb Height 0 in Head Circumference 0.00 cm :04 Temperature 98.2 f Comments: Method: Oral Pulse 80 /min Comments: Pattern: Regular Respiration Rate 16 /min Comments: Pattern: Unlabored BP Systolic 110 mm[Hg] Comments: Patient Position: Sitting; Cuff Location: Left Arm; Cuff Size: Standard BP Diastolic 74 mm[Hg] Comments: Patient Position: Sitting; Cuff Location: Left Arm; Cuff Size: Standard Weight 146 lb Height 0 in Head Circumference 0.00 cm :18 Temperature 97.5 f Comments: Method: Oral Pulse 80 /min Comments: Pattern: Regular Respiration Rate 16 /min Comments: Pattern: Unlabored BP Systolic 122 mm[Hg] Comments: Patient Position: Sitting; Cuff Location: Right Arm; Cuff Size: Standard BP Diastolic 88 mm[Hg] Comments: Patient Position: Sitting; Cuff Location: Right Arm; Cuff Size: Standard Weight 0 lb Height 0 in Head Circumference 0.00 cm :05 Temperature 98.4 f Comments: Method: Oral Pulse 74 /min Comments: Pattern: Regular Respiration Rate 18 /min Comments: Pattern: Unlabored BP Systolic 130 mm[Hg] Comments: Patient Position: Sitting; Cuff Location: Left Arm; Cuff Size: Standard BP Diastolic 84 mm[Hg] Comments: Patient Position: Sitting; Cuff Location: Left Arm; Cuff Size: Standard Weight 147 lb Height 0 in Head Circumference 0.00 cm :10 Temperature 98.2 f Comments: Method: Undefined Pulse 74 /min Comments: Pattern: Regular Respiration Rate 16 /min Comments: Pattern: Undefined BP Systolic 110 mm[Hg] Comments: Patient Position: Sitting; Cuff Location: Left Arm; Cuff Size: Standard BP Diastolic 72 mm[Hg] Comments: Patient Position: Sitting; Cuff Location: Left Arm; Cuff Size: Standard Weight 143.0625 lb Height 0 in Head Circumference 0.00 cm :33 Temperature 99 f Comments: Method: Oral Pulse 72 /min Comments: Pattern: Regular Respiration Rate 20 /min Comments: Pattern: Unlabored BP Systolic 134 mm[Hg] Comments: Patient Position: Sitting; Cuff Location: Left Arm; Cuff Size: Standard BP Diastolic 78 mm[Hg] Comments: Patient Position: Sitting; Cuff Location: Left Arm; Cuff Size: Standard Weight 143.0625 lb Height 71 in Body Mass Index Calculated 19.95 kg/m2 Body Surface Area Calculated 1.83 m2 Head Circumference 0.00 cm :04 Temperature 98 f Comments: Method: Oral Pulse 84 /min Comments: Pattern: Regular Respiration Rate 16 /min Comments: Pattern: Unlabored BP Systolic 118 mm[Hg] Comments: Patient Position: Sitting; Cuff Location: Left Arm; Cuff Size: Standard BP Diastolic 70 mm[Hg] Comments: Patient Position: Sitting; Cuff Location: Left Arm; Cuff Size: Standard Weight 146 lb Height 0 in Head Circumference 0.00 cm :57 Pulse 84 /min Comments: Pattern: Regular BP Systolic 140 mm[Hg] Comments: Patient Position: Standing; Cuff Location: Right Arm; Cuff Size: Standard BP Diastolic 80 mm[Hg] Comments: Patient Position: Standing; Cuff Location: Right Arm; Cuff Size: Standard Weight 0 lb Height 0 in Head Circumference 0.00 cm :56 Pulse 68 /min Comments: Pattern: Regular BP Systolic 140 mm[Hg] Comments: Patient Position: Supine; Cuff Location: Right Arm; Cuff Size: Standard BP Diastolic 86 mm[Hg] Comments: Patient Position: Supine; Cuff Location: Right Arm; Cuff Size: Standard Weight 0 lb Height 0 in Head Circumference 0.00 cm :56 Pulse 80 /min Comments: Pattern: Regular BP Systolic 142 mm[Hg] Comments: Patient Position: Sitting; Cuff Location: Right Arm; Cuff Size: Standard BP Diastolic 94 mm[Hg] Comments: Patient Position: Sitting; Cuff Location: Right Arm; Cuff Size: Standard Weight 0 lb Height 0 in Head Circumference 0.00 cm :18 Temperature 98.7 f Comments: Method: Oral Pulse 72 /min Comments: Pattern: Regular Respiration Rate 14 /min Comments: Pattern: Unlabored BP Systolic 130 mm[Hg] Comments: Patient Position: Sitting; Cuff Location: Left Arm; Cuff Size: Standard BP Diastolic 80 mm[Hg] Comments: Patient Position: Sitting; Cuff Location: Left Arm; Cuff Size: Standard Weight 0 lb Height 0 in Head Circumference 0.00 cm :04 Temperature 97.6 f Comments: Method: Oral Pulse 74 /min Comments: Pattern: Regular Respiration Rate 20 /min Comments: Pattern: Unlabored BP Systolic 110 mm[Hg] Comments: Patient Position: Sitting; Cuff Location: Left Arm; Cuff Size: Standard BP Diastolic 76 mm[Hg] Comments: Patient Position: Sitting; Cuff Location: Left Arm; Cuff Size: Standard Weight 155 lb Height 0 in Head Circumference 0.00 cm [id number] Temperature 98.1 f Comments: Method: Oral Pulse 72 /min Comments: Pattern: Regular Respiration Rate 18 /min Comments: Pattern: Unlabored BP Systolic 150 mm[Hg] Comments: Patient Position: Sitting; Cuff Location: Left Arm; Cuff Size: Standard BP Diastolic 108 mm[Hg] Comments: Patient Position: Sitting; Cuff Location: Left Arm; Cuff Size: Standard Weight 155.5625 lb Height 0 in Head Circumference 0.00 cm Results Date Description Value Details [id number] Comprehensive Metabolic Profil Comments: Order Date: 04/13/18Order Info: [id number] - [facility] [address] [place], [address] GAP 5 (Normal) Range: 5-15 CO2 31.0 mmol/L (Normal) Range: 21.0-32.0 CL 103 mmol/L (Normal) Range: 98-107 K 4.0 mmol/L (Normal) Range: 3.5-5.1 NA 139 mmol/L (Normal) Range: 136-145 T BILI 0.50 mg/dL (Normal) Range: 0.20-1.00 ALT 23 U/L (Normal) Range: 16-61 ALK P 52 U/L (Normal) Range: 45-117 AST 13 U/L (Abnormal) Range: 15-37 CA 9.0 mg/dL (Normal) Range: 8.5-10.1 A/G 1.2 {RATIO} (Normal) Range: 0.9-2.4 GLOB 3.4 g/dL (Normal) Range: 2.2-4.2 ALB 4.2 g/dL (Normal) Range: 3.2-5.0 T PROT 7.6 g/dL (Normal) Range: 6.4-8.2 BUN/CRE 13.4 {RATIO} (Normal) Range: 10-20 EST GFR - AA 84 mL/min (Normal) Comments: GFR Calc EST GFR 69 mL/min (Normal) Comments: Non- GFR Calc CREAT,SERUM 1.19 mg/dL (Normal) Range: 0.70-1.30 Comments: The validity of the calculated GFR AND GFRAA in patients over70 years has not been determined. Clinical correlation isessential. BUN 16 mg/dL (Normal) Range: 7-18 GLU 88 mg/dL (Normal) Range: 74-106 Comments: Please note revised GLUCOSE reference range eatgglhol47/02/2018. [id number] Urinalysis, Office (04929) UA - LEUKOCYTE ESTERASE Negative (Normal) UA - NITRITE Negative (Normal) URINE UROBILINGN AMARIS TIMED Normal mg/dL (Normal) UA - PROTEIN Negative mg/dL (Normal) UA - PH 7.0 (Normal) UA - BLOOD Negative (Normal) UA - SPECIFIC GRAVITY 1.010 (Normal) UA - KETONES Negative mg/dL (Normal) UA - BILIRUBIN Negative (Normal) UA - GLUCOSE Negative (Normal) :52 CBC W/Diff, Automated Comments: [facility] [address] [facility] [place], [place], [id number] Absolute Lymph 1.66 {X10_3/ul} (Normal) Range: 0.83-4.51 Absolute Neut 2.2 {X10_3/uL} (Normal) Range: 2.0-7.7 IM GRAN % 0.200 % (Normal) Range: 0.0-0.9 Comments: IG% - Immature Granulocytes (promyelocytes, myelocytes andmetamyelocytes) > 1% indicates that a LEFT SHIFT is Present. BASO% 0.4 % (Normal) Range: 0-1 EO% 1.8 % (Normal) Range: 0-5 MONO% 11.9 % (Abnormal) Range: 0-10 LY% 37.1 % (Normal) Range: 19-41 NEUT% 48.6 % (Normal) Range: 47-70 MPV 11.1 fL (Normal) Range: 6.2-12.0 PLT 218 K/mm3 (Normal) Range: 150-450 RDW SD 41.7 fL (Normal) Range: 35.1-43.9 RDW CV 12.5 % (Normal) Range: 11.6-14.6 MCHC 35.1 {g/gl} (Normal) Range: 32-36 MCH 31.8 pg (Normal) Range: 27.0-32.0 MCV 90.6 fL (Normal) Range: 80-94 HCT 46.4 % (Normal) Range: 40-54 HGB 16.3 g/dL (Normal) Range: 13.0-16.5 RBC 5.12 {M/mm3} (Normal) Range: 4.6-6.2 WBC 4.5 K/mm3 (Normal) Range: 4.4-11.0 :52 Comprehensive Metabolic Profil Comments: [facility] [address] [place], [place], [id number] GAP 6 (Normal) Range: 5-15 CO2 28.0 mmol/L (Normal) Range: 21.0-32.0 CL 101 mmol/L (Normal) Range: 98-107 K 3.8 mmol/L (Normal) Range: 3.5-5.1 NA 135 mmol/L (Abnormal) Range: 136-145 T BILI 0.70 mg/dL (Normal) Range: 0.20-1.00 ALT 27 U/L (Normal) Range: 12-78 ALK P 53 U/L (Normal) Range: 50-136 AST 14 U/L (Abnormal) Range: 15-37 CA 8.7 mg/dL (Normal) Range: 8.5-10.1 A/G 1.2 {RATIO} (Normal) Range: 0.9-2.4 GLOB 3.5 g/dL (Normal) Range: 2.3-3.5 ALB 4.2 g/dL (Normal) Range: 3.4-5.0 T PROT 7.7 g/dL (Normal) Range: 6.4-8.2 BUN/CRE 10.7 {RATIO} (Normal) Range: 10-20 EST GFR - AA 83 mL/min (Normal) Comments: GFR Calc EST GFR 69 mL/min (Normal) Comments: Non- GFR Calc CREAT,SERUM 1.21 mg/dL (Normal) Range: 0.70-1.30 Comments: The validity of the calculated GFR AND GFRAA in patients over70 years has not been determined. Clinical correlation isessential. BUN 13 mg/dL (Normal) Range: 7-18 GLU 83 mg/dL (Normal) Range: 70-110 [id number] Lipid Profile Comments: [facility] [address] [place], [place], [id number] VLDL 30 mg/dL (Normal) Range: 5-40 LDL 138 mg/dL (Abnormal) Range: 0-130 HDL 67 mg/dL (Normal) Comments: The drugs N-Acetylcysteine and Metamizole may falsely deressthis assay. Reference Range HDL <40 mg/dL Low HDL Cholesterol HDL >or= 60 mg/dL High HDL Cholesterol TRIG 148 mg/dL (Normal) Comments: The drugs N-Acetylcysteine and Metamizole may falsely deressthis assay.Serum Triglycerides Reference Interval Normal <150 mg/dL Borderline high 150 - 199 mg/dL High 200 - 499 mg/dL Very High > or = 500 mg/dL CHOL 235 mg/dL (Abnormal) Comments: <200 mg/dL Desirable 200-240 mg/dL Borderline >240 mg/dL High Risk :52 Microalb:Creat Ratio,Random UR Comments: [facility] [address] [place], [place], [id number] MALB:CREAT 8.0 {mg/g_CRE} (Normal) MICROALBUMIN,UR 20.2 mg/L (Normal) UR CREAT 252.00 mg/dL (Normal) :52 PSA,Total - Annual Screen Comments: [facility] [address] [place], [place], [id number] PSA,TOT SCREEN 1.30 ng/mL (Normal) Range: 0.00-4.00 Comments: This test was performed using the TPSA assay method for the[facility] system. Values obtained with differentassay methods cannot be used interchangably.When changing PSA assays in the course of monitoring apatient, additional sequential testing should be carriedout to confirm baseline values. :52 Urinalysis, Complete Comments: How was Urine Obtained? [facility] [address] [place], [place], [id number] MUCUS, URINE 0 SEEN {/hpf} (Normal) BACTERIA 0 SEEN {/hpf} (Normal) SQUAM EPI 0 SEEN {/hpf} (Normal) Range: 0-5 RBC-UA 0 SEEN {/hpf} (Normal) Range: 0-5 WBC 0-5 SEEN {/hpf} (Normal) Range: 0-5 LEUK ESTERASE 25 /ul (Abnormal) OCCULT BLOOD-UR 10 /ul (Abnormal) NITRITE UR Negative (Normal) UROBILI Normal mg/dL (Normal) PROT DIPSTX 15 mg/dL (Abnormal) pH UR 6.0 (Normal) Range: 5.0 - 8.0 SP.GR. DIPSTX 1.015 (Normal) Range: 1.002-1.030 KETONE UR Negative mg/dL (Normal) BILIRUBIN URINE Negative mg/dL (Normal) GLUCOSE, UR Normal mg/dL (Normal) CLARITY Clear (Normal) COLOR Yellow (Normal) 98-Wae-[id number]:18 CBC With Differential/Platelet Comments: PATIENT WAS FASTINGPERFORMED BY: [facility] HospitalZffqhw8926 [facility] [id number] Information: [id number] Immature Grans (Abs) 0.0 {x10E3/uL} (Normal) Range: 0.0-0.1 Immature Granulocytes 0 % (Normal) Baso (Absolute) 0.0 {x10E3/uL} (Normal) Range: 0.0-0.2 Eos (Absolute) 0.0 {x10E3/uL} (Normal) Range: 0.0-0.4 Monocytes(Absolute) 0.5 {x10E3/uL} (Normal) Range: 0.1-0.9 Lymphs (Absolute) 1.3 {x10E3/uL} (Normal) Range: 0.7-3.1 Neutrophils (Absolute) 3.2 {x10E3/uL} (Normal) Range: 1.4-7.0 Basos 0 % (Normal) Eos 1 % (Normal) Monocytes 9 % (Normal) Lymphs 26 % (Normal) Neutrophils 64 % (Normal) Platelets 217 {x10E3/uL} (Normal) Range: 150-379 RDW 14.4 % (Normal) Range: 12.3-15.4 MCHC 34.9 g/dL (Normal) Range: 31.5-35.7 MCH 31.9 pg (Normal) Range: 26.6-33.0 MCV 92 fL (Normal) Range: 79-97 Hematocrit 45.3 % (Normal) Range: 37.5-51.0 Hemoglobin 15.8 g/dL (Normal) Range: 12.6-17.7 RBC 4.95 {x10E6/uL} (Normal) Range: 4.14-5.80 WBC 5.0 {x10E3/uL} (Normal) Range: 3.4-10.8 :18 Comp. Metabolic Panel (14) Comments: PATIENT WAS FASTINGPERFORMED BY: Values of n [facility] [id number] ALT (SGPT) 21 [iU]/L (Normal) Range: 0-44 AST (SGOT) 18 [iU]/L (Normal) Range: 0-40 Alkaline Phosphatase, S 51 [iU]/L (Normal) Range: 39-117 Bilirubin, Total 0.7 mg/dL (Normal) Range: 0.0-1.2 A/G Ratio 2.0 (Normal) Range: 1.1-2.5 Globulin, Total 2.2 g/dL (Normal) Range: 1.5-4.5 Albumin, Serum 4.5 g/dL (Normal) Range: 3.5-5.5 Protein, Total, Serum 6.7 g/dL (Normal) Range: 6.0-8.5 Calcium, Serum 9.4 mg/dL (Normal) Range: 8.7-10.2 Carbon Dioxide, Total 24 mmol/L (Normal) Range: 18-29 Chloride, Serum 101 mmol/L (Normal) Range: 97-108 Potassium, Serum 4.6 mmol/L (Normal) Range: 3.5-5.2 Sodium, Serum 140 mmol/L (Normal) Range: 134-144 BUN/Creatinine Ratio 10 (Normal) Range: 9-20 eGFR If Africn Am 85 mL/min/1.73 (Normal) eGFR If NonAfricn Am 73 mL/min/1.73 (Normal) Creatinine, Serum 1.20 mg/dL (Normal) Range: 0.76-1.27 BUN 12 mg/dL (Normal) Range: 6-24 Glucose, Serum 92 mg/dL (Normal) Range: 65-99 :18 Lipid Panel With LDL/HDL Comments: PATIENT WAS FASTINGPERFORMED BY: [place] [id number] Ratio LDL/HDL Ratio 1.9 {ratio_units} (Normal) Range: 0.0-3.6 Comments: LDL/HDL Ratio Men Women 1/2 Avg.Risk 1.0 1.5 Av g.Risk 3.6 3.2 2X Avg.Risk 6.2 5.0 3X Avg.Risk 8.0 6.1 LDL Cholesterol Calc 145 mg/dL (Abnormal) Range: 0-99 VLDL Cholesterol [place] 17 mg/dL (Normal) Range: 5-40 HDL Cholesterol 78 mg/dL (Normal) Comments: According to ATP-III Guidelines, HDL-C >59 mg/dL is considered anegative risk factor for CHD. Triglycerides 87 mg/dL (Normal) Range: 0-149 Cholesterol, Total 240 mg/dL (Abnormal) Range: 100-199 :18 Microscopic Examination Comments: PATIENT WAS FASTINGPERFORMED BY: [employer] [id number] [facility] [id number] Bacteria None seen (Normal) Mucus Threads Present (Normal) Epithelial Cells (non renal) 0-10 {/hpf} (Normal) Range: 0 - 10 RBC None seen {/hpf} (Normal) Range: 0 - 2 WBC 0-5 {/hpf} (Normal) Range: 0 - 5 :18 Prostate-Specific Ag, Serum Comments: PATIENT WAS FASTINGPERFORMED BY: [id number] [facility] [id number] Prostate Specific Ag, 1.5 ng/mL (Normal) Range: 0.0-4.0 Serum Comments: 5minutes ECLIA methodology. .According to the [employer], Serum PSA shoulddecrease and remain at undetectable levels after radicalprostatectomy. The AUA defines biochemical recurrence as an initialPSA value 0.2 ng/mL or greater followed by a subsequent confirmatoryPSA value 0.2 ng/mL or greater.Values obtained with d ifferent assay methods or kits cannot be usedinterchangeably. Results cannot be interpreted as absolute evidenceof the presence or absence of malignant disease. :18 Urinalysis, Complete Comments: PATIENT WAS FASTINGPERFORMED BY: Momentum BioscienceJon [facility]in [place] [id number] Microscopic Examination See below: (Normal) Comments: Microscopic was indicated and was performed. Nitrite, Urine Negative (Normal) Urobilinogen,Semi-Qn 0.2 mg/dL (Normal) Range: 0.0-1.9 Bilirubin Negative (Normal) Occult Blood Negative (Normal) Ketones Negative (Normal) Glucose Negative (Normal) Protein 1+ (Abnormal) WBC Esterase Negative (Normal) Appearance Clear (Normal) Urine-Color Yellow (Normal) pH 7.0 (Normal) Range: 5.0-7.5 Specific [place] 1.021 (Normal) Range: 1.005-1.030 99-Iys-803989:54 Influenza A&B Viral Culture (80291) Influenza A&B Viral Culture positive A and Negative B (Normal) [id number]-[id number] WRIST MIN 3 VIEWS Radiology See Note Comments: PROCEDURE: X-RAY - RIGHT WRIST REASON FOR EXAM: Male, 42 years old. Pain and weakness. TECHNIQUE: Three views of the wrist were obtained. COMPARISON: None. FI Report (Normal) NDINGS:Normal visualized distal radius and ulna. Normal radiocarpalarticulation.Normal distal radioulnar articulation. Normal carpal bones. Normalcarpal articulations. Normal carpometacarpal articula tion of the thumb. Normal second throughfifth carpometacarpal articulations. Normal visualized metacarpal bones. The soft tissue structures are unremarkable. IMPRESSI ON:Normal x-ray examination of the wrist. Signed:Edmond Judd M.D.March 16, 2013 at 1:49:04 PM [id number] Signed GP/GP If you are the referring physician and would like to consul t with theradiologist who provided this interpretation, please contact Miguel Rai at [phone]. If this radiologist is unavailable, youwill be directed to another radiologist to assist. If you are a patient with a question regarding this report, pleasecontactyour referring physician directly. Professional Interpretation Provided By: Mariangel, Phone , Th jeanette documents contain legally protected and confidential healthinformation intended only for the use of the individual or entity namedabove. If you are not the intended recipient, you are hereby notifie dthatany disclosure, copying, distribution, or other use of these documents isstrictly prohibited. If you have received this information in error,pleasenotify the sender immediately and arrange for the return or destructionofthese documents. Dictated on 03/16/13 1349 by Binta HATHAWAY,Rosemaryranscribed on 03/16/13 1515 by ITS IMPORTSign by Binta HATHAWAY,Edmnod on 03/16/13 1516 Sign by: Edmond Judd MD [id number]-Znf-[id number]:06 CBCD,SMEAR DIFF BAND 1 % (Normal) Range: 0-5 CELLS COUNTED 100 (Normal) HCT 43.9 % (Normal) Range: 40-54 HGB 15.4 g/dL (Normal) Range: 14.0-18.0 LYMPH 37 % (Normal) Range: 19-41 MCH 33.1 pg (Abnormal) Range: 27.0-32.0 MCHC 35.0 g/dL (Normal) Range: 32-36 MCV 94.5 fL (Abnormal) Range: 80-94 PLT 183 K/mm3 (Normal) Range: 150-450 PLT EST SeeNote (Normal) Comments: Result: ADEQUATE PLT MORPH GIANT (Normal) RBC 4.64 {M/mm3} (Normal) Range: 4.6-6.2 RDW 13.2 % (Normal) Range: 11.6-14.6 RED CELL MORPH SeeNote {NORMAL} (Normal) Comments: Result: NORM C+C SEGS 62 % (Normal) Range: 47-70 WBC 6.6 K/mm3 (Normal) Range: 4.4-11.0 76-Bgt-941990:06 COMP METABOLIC A/G 1.4 {RATIO} (Normal) Range: 0.9-2.4 ALB 4.4 g/dL (Normal) Range: 3.4-5.0 ALK P 48 U/L (Abnormal) Range: 50-136 ALT 35 U/L (Normal) Range: 30-65 AST 19 U/L (Normal) Range: 15-37 BUN 15 mg/dL (Normal) Range: 7-18 BUN/CRE 12.5 {RATIO} (Normal) Range: 10-20 CA 8.9 mg/dL (Normal) Range: 8.5-10.1 CL 103 mmol/L (Normal) Range: 98-107 CO2 29.7 mmol/L (Normal) Range: 21.0-32.0 CREAT,SERUM 1.2 mg/dL (Normal) Range: 0.8-1.3 GAP 9 (Normal) Range: 5-15 GLOB 3.2 g/dL (Normal) Range: 2.7-4.2 GLU 84 mg/dL (Normal) Range: 70-110 K 3.9 mmol/L (Normal) Range: 3.5-5.1 NA 142 mmol/L (Normal) Range: 136-145 T BILI 1.34 mg/dL (Abnormal) Range: 0.00-1.00 T PROT 7.6 g/dL (Normal) Range: 6.4-8.2 [id number]-Nsz-[id number]:06 LIPID CHOL 196 mg/dL (Normal) Comments: <200 mg/dL Desirable 200-240 mg/dL Borderline >240 mg/dL High Risk HDL 79 mg/dL (Normal) Comments: Reference Range HDL <40 mg/dL Low HDL Cholesterol HDL >or= 60 mg/dL High HDL Cholesterol LDL 105 mg/dL (Normal) Range: 0-130 TRIG 62 mg/dL (Normal) Comments: Serum Triglycerides Reference Interval Normal <150 mg/dL Borderline high 150 - 199 mg/dL High 200 - 499 mg/dL Very High > or = 500 mg/dL VLDL 12 mg/dL (Normal) Range: 5-40 3-Vtl-194003:07 CBC (Auto) ([id number]) Comments: PATIENT NOT FASTINGPERFORMED BY: [facility] [id number] [facility] [id number] Hematocrit 43.5 % (Normal) Range: 36.0-50.0 Hemoglobin 15.1 g/dL (Normal) Range: 12.5-17.0 MCH 33.7 pg (Normal) Range: 27.0-34.0 MCHC 34.7 g/dL (Normal) Range: 32.0-36.0 MCV 97 fL (Normal) Range: 80-98 Platelets 189 {x10E3/uL} (Normal) Range: 140-415 RBC 4.49 {x10E6/uL} (Normal) Range: 4.10-5.60 RDW 12.9 % (Normal) Range: 11.7-15.0 WBC 4.5 {x10E3/uL} (Normal) Range: 4.0-10.5 4-Dlw-196126:07 Metabolic Panel, Comprehensive Comments: PATIENT NOT FASTINGClinical Information: ADD DRAW FEE [id number] ADD [id number] [id number] PERFORMED BY: [facility] HospitalQendei1081 [facility] [id number] ([id number]) A/G Ratio 2.0 (Normal) Range: 1.1-2.5 Albumin, Serum 4.4 g/dL (Normal) Range: 3.5-5.5 Alkaline Phosphatase, S 46 [iU]/L (Normal) Range: 25-150 ALT (SGPT) 17 [iU]/L (Normal) Range: 0-55 AST (SGOT) 18 [iU]/L (Normal) Range: 0-40 Bilirubin, Total 0.6 mg/dL (Normal) Range: 0.1-1.2 BUN 11 mg/dL (Normal) Range: 5-26 BUN/Creatinine Ratio 8 (Normal) Range: 8-27 Calcium, Serum 9.0 mg/dL (Normal) Range: 8.5-10.6 Carbon Dioxide, Total 26 mmol/L (Normal) Range: 20-32 Chloride, Serum 105 mmol/L (Normal) Range: 96-109 Creatinine, Serum 1.3 mg/dL (Normal) Range: 0.5-1.5 Globulin, Total 2.2 g/dL (Normal) Range: 1.5-4.5 Glucose, Serum 64 mg/dL (Abnormal) Range: 65-99 Potassium, Serum 4.5 mmol/L (Normal) Range: 3.5-5.5 Protein, Total, Serum 6.6 g/dL (Normal) Range: 6.0-8.5 Sodium, Serum 140 mmol/L (Normal) Range: 135-148 :57 CBCD,SMEAR DIFF CELLS COUNTED 100 (Normal) EOS 3 % (Normal) Range: 0-5 HCT 46.7 % (Normal) Range: 40-54 HGB 16.0 g/dL (Normal) Range: 14.0-18.0 LYMPH 38 % (Normal) Range: 19-41 MCH 31.8 pg (Normal) Range: 27.0-32.0 MCHC 34.2 g/dL (Normal) Range: 32-36 MCV 93.2 fL (Normal) Range: 80-94 MONOCYTE 6 % (Normal) Range: 0-10 PLT 196 K/mm3 (Normal) Range: 150-450 PLT EST SeeNote (Normal) Comments: Result: ADEQUATE RBC 5.02 {M/mm3} (Normal) Range: 4.6-6.2 RDW 12.3 % (Normal) Range: 11.6-14.6 RED CELL MORPH SeeNote {NORMAL} (Normal) Comments: Result: NORM C&C SEGS 53 % (Normal) Range: 47-70 WBC 4.5 K/mm3 (Normal) Range: 4.4-11.0 :57 COMP METABOLIC A/G 1.2 {RATIO} (Normal) Range: 0.9-2.4 ALB 4.0 g/dL (Normal) Range: 3.4-5.0 ALK P 51 U/L (Normal) Range: 50-136 ALT 40 [iU]/L (Normal) Range: 30-65 AST 15 U/L (Normal) Range: 15-37 BUN 15 mg/dL (Normal) Range: 7-18 BUN/CRE 13.6 {RATIO} (Normal) Range: 10-20 CA 8.8 mg/dL (Normal) Range: 8.5-10.1 CL 100 mmol/L (Normal) Range: 98-107 CO2 32.6 mmol/L (Abnormal) Range: 22.0-29.0 CREAT,SERUM 1.1 mg/dL (Normal) Range: 0.8-1.3 GAP 5 (Normal) Range: 5-15 GLOB 3.3 g/dL (Normal) Range: 2.3-3.5 GLU 96 mg/dL (Normal) Range: 70-110 K 4.0 mmol/L (Normal) Range: 3.5-5.1 NA 138 mmol/L (Normal) Range: 136-145 T BILI 0.50 mg/dL (Normal) Range: 0.00-1.00 T PROT 7.3 g/dL (Normal) Range: 6.4-8.2 :57 PFLIP CHOL 216 mg/dL (Abnormal) Comments: <200 mg/dL Desirable 200-240 mg/dL Borderline >240 mg/dL High Risk HDL 63 mg/dL (Normal) Comments: Reference Range HDL <40 mg/dL Low HDL Cholesterol HDL >or= 60 mg/dL High HDL Cholesterol LDL 139 mg/dL (Abnormal) Range: 0-130 TRIG 70 mg/dL (Normal) Comments: Serum Triglycerides Reference Interval Normal <150 mg/dL Borderline high 150 - 199 mg/dL High 200 - 499 mg/dL Very High > or = 500 mg/dL VLDL 14 mg/dL (Normal) Range: 5-40 :40 BMP Comments: Precautions*: NOT APPLICABLEINDICATE CK '1', '2', '3', OR 'R' FOR RANDOM: 1 BUN 9 mg/dL (Normal) Range: 7-18 BUN/CRE 7.5 {RATIO} (Abnormal) Range: 10-20 CA 9.1 mg/dL (Normal) Range: 8.5-10.1 CL 101 mmol/L (Normal) Range: 98-107 CO2 28.3 mmol/L (Normal) Range: 22.0-29.0 CREAT,SERUM 1.2 mg/dL (Normal) Range: 0.8-1.3 GAP 9 (Normal) Range: 5-15 GLU 102 mg/dL (Normal) Range: 70-110 K 3.6 mmol/L (Normal) Range: 3.5-5.1 NA 138 mmol/L (Normal) Range: 136-145 :40 CBCD Comments: Precautions*: NOT APPLICABLE BASO% 0.4 % (Normal) Range: 0-1 EO% 0.6 % (Normal) Range: 0-5 HCT 47.0 % (Normal) Range: 40-54 HGB 16.5 g/dL (Normal) Range: 14.0-18.0 LY% 23.9 % (Normal) Range: 19-41 MCH 32.9 pg (Abnormal) Range: 27.0-32.0 MCHC 35.2 g/dL (Normal) Range: 32-36 MCV 93.5 fL (Normal) Range: 80-94 MONO% 12.7 % (Abnormal) Range: 0-10 MPV 9.3 fL (Normal) Range: 6.5-12.0 NEUT% 62.4 % (Normal) Range: 47-70 PLT 188 K/mm3 (Normal) Range: 150-450 RBC 5.03 {M/mm3} (Normal) Range: 4.6-6.2 RDW 12.6 % (Normal) Range: 11.6-14.6 WBC 4.6 K/mm3 (Normal) Range: 4.4-11.0 :40 CPK TOTAL 65 U/L (Normal) Comments: Precautions*: NOT APPLICABLEINDICATE CK '1', '2', '3', OR 'R' FOR RANDOM: 1 Range: 35-232 :40 CPKMB 0.6 ng/mL (Normal) Comments: Precautions*: NOT APPLICABLEINDICATE CK '1', '2', '3', OR 'R' FOR RANDOM: 1 Range: 0.0-5.0 Comments: CK-MB and RI Interpretation MB Relative Index Non-AMI <or= 5 NA Indeterminate > 5 <or= 4 AMI > 5 > 4 :40 PTT 33.5 s (Normal) Comments: Precautions*: NOT APPLICABLE Range: 24.6-36.6 :40 TROPONIN-I < 0.04 ng/mL (Normal) Comments: Precautions*: NOT APPLICABLEINDICATE CK '1', '2', '3', OR 'R' FOR RANDOM: 1 Comments: TROPONIN-I EXPECTED VALUES < 0.50 NEGATIVE 0.50 - 1.49 INDETERMINANT > OR = 1.50 SUGGEST WI Plan of Care Name Dates Details Instructions Hypertension, benign : Follow up in 6 months Indication: Hypertension, benign Hypertension, benign : Diet, Exercise, and Wt loss Indication: Hypertension, benign Hypertension, benign : HTN/CAD Red Flags Indication: Hypertension, benign Head injury : Follow up if no improvement or if symptoms worsen Indication: Head injury BMI 22.0-22.9, adult : Eprescribed prescriptions ([id number]) Indication: BMI 22.0-22.9, adult Hypertension, benign : Follow up in 6 months Indication: Hypertension, benign Hypertension, benign : HTN/CAD Red Flags Indication: Hypertension, benign Stress reaction : Follow up in 1 month Indication: Stress reaction Mitral valve insufficiency and aortic valve insufficiency : Reviewed Diagnostic Tests Indication: Mitral valve insufficiency and aortic valve insufficiency Hypertension, benign : Follow up in 6 months Indication: Hypertension, benign Hypertension, benign : Diet, Exercise, and Wt loss Indication: Hypertension, benign Hypertension, benign : HTN/CAD Red Flags Indication: Hypertension, benign Non-smoker : Eprescribed prescriptions (G8553) Indication: Non-smoker Hypertension, benign : Reviewed Lab Indication: Hypertension, benign Hypertension, benign : Follow up in 6 months Indication: Hypertension, benign Hypertension, benign : Continue Current Prescription(s) Indication: Hypertension, benign 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 : Follow up in 2-3 weeks 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 : HTN/CAD Red Flags 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 Encounter for routine history and physical exam for male : *Colon Cancer Screening Indication: Encounter for routine history and physical exam for male Encounter for routine history and physical exam for male : Eprescribed prescriptions (G8553) Indication: Encounter for routine history and physical exam for male Low back pain : Follow up in 2 weeks Indication: Low back pain Low back pain : Low Back Pain Red Flags Indication: Low back pain Wrist pain : Follow up after consult Indication: Wrist pain Wrist pain : Wrist Sprain *: injuries Indication: Wrist pain Serous conjunctivitis, unspecified laterality : *Conjunctivitis Education Indication: Serous conjunctivitis, unspecified laterality Other anxiety states : FOLLOW UP IN 1 MONTH Indication: Other anxiety states Bronchitis, acute : Antibiotic Usage Education - Male Indication: Bronchitis, acute Other anxiety states : depression/anxiety treatment Indication: Other anxiety states Other anxiety states : Antidepressant Usage Indication: Other anxiety states Depressive disorder : depression/anxiety treatment Indication: Depressive disorder Depressive disorder : Antidepressant Usage Indication: Depressive disorder Other anxiety states : depression/anxiety treatment Indication: Other anxiety states Other anxiety states : Antidepressant Usage Indication: Other anxiety states Hypotension, unspecified : FOLLOW UP IN 2 WEEKS Indication: Hypotension, unspecified Acute sinusitis, unspecified : Antibiotic Usage Education - Male Indication: Acute sinusitis, unspecified Acute sinusitis, unspecified : URI Symptoms Indication: Acute sinusitis, unspecified Acute sinusitis, unspecified : URI treament Indication: Acute sinusitis, unspecified Eustachian tube dysfunction : FOLLOW UP IN 1 WEEK Indication: Eustachian tube dysfunction Pharyngitis, acute : Sore throat: diagnosis and treatment Indication: Pharyngitis, acute Pharyngitis, acute : URI treament Indication: Pharyngitis, acute 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 : FOLLOW UP IN 6 MONTHS 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 : FOLLOW UP IN 2 WEEKS 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 Planned Observations TSH ([id number])Indication: Anxiety On: : Request URINALYSIS, W/ MICRO ([id number])Indication: Hypertension, benign On: Request MICROALBUMIN: CREATININE RATIO ([id number]) AND ([id number])Indication: Hypertension, benign On: : Request METABOLIC PANEL, COMPREHENSIVE ([id number])Indication: Hypertension, benign On: Request LIPOPROTEIN, BLD, BY NMR ([id number])Indication: Hypertension, benign On: : Request CBC W/AUTO DIFF WBC ([id number])Indication: Hypertension, benign On: :26 Request METABOLIC PANEL, COMPREHENSIVE ([id number])Indication: Headache On: 9-Qec-549782:32 Request URINALYSIS, W/ MICRO ([id number])Indication: Hypertension, benign On: 29-Nui-032304:14 Request MICROALBUMIN: CREATININE RATIO ([id number]) AND ([id number])Indication: Hypertension, benign On: 96-Jaz-321994:14 Request METABOLIC PANEL, COMPREHENSIVE ([id number])Indication: Hypertension, benign On: 89-Zbk-076793:14 Request LIPID PANEL ([id number])Indication: Hypertension, benign On: 23-Mcs-406826:14 Request CBC W/AUTO DIFF WBC ([id number])Indication: Hypertension, benign On: 76-Fyw-219942:14 Request URINALYSIS, W/ MICRO ([id number])Indication: Hypertension, benign On: 41-Cfs-827417:54 Request MICROALBUMIN: CREATININE RATIO ([id number]) AND ([id number])Indication: Hypertension, benign On: 36-Sfg-138228:54 Request METABOLIC PANEL, COMPREHENSIVE ([id number])Indication: Hypertension, benign On: 24-Zyg-958148:54 Request LIPID PANEL ([id number])Indication: Hypertension, benign On: :54 Request CBC W/AUTO DIFF WBC ([id number])Indication: Hypertension, benign On: 21-Atm-584439:54 Request URINALYSIS ([id number])Indication: Hematuria On: :43 Request URINALYSIS, W/ MICRO ([id number])Indication: Hematuria On: :30 Request LIPID PANEL ([id number])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 On: :32 Request URINALYSIS, W/ MICRO ([id number])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 On: :32 Request MICROALBUMIN: CREATININE RATIO ([id number]) AND ([id number])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 On: :32 Request METABOLIC PANEL, COMPREHENSIVE ([id number])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 On: :31 Request CBC W/AUTO DIFF WBC ([id number])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 On: :31 Request PSA (PROSTATE SPECIFIC ANTIGEN) (V76.44)Indication: Encounter for screening for malignant neoplasm of prostate (Renamed from Screening for prostate cancer) On: :30 Request UPEP ([id number])Indication: Urine protein increased On: 87-Spe-72364:55 Request MICROALBUMIN: CREATININE RATIO ([id number]) AND ([id number])Indication: Urine protein increased On: :55 Request URINALYSIS, W/ MICRO ([id number])Indication: Encounter for routine history and physical exam for male On: 5-Czy-748340:09 Request METABOLIC PANEL, COMPREHENSIVE ([id number])Indication: Encounter for routine history and physical exam for male On: 1-Uyw-658968:09 Request LIPID PANEL ([id number])Indication: Encounter for routine history and physical exam for male On: 9-Gmu-190392:09 Request CBC with auto diff ([id number])Indication: Encounter for routine history and physical exam for male On: 1-Sww-115037:08 Request PSA (PROSTATE SPECIFIC ANTIGEN) (V76.44)Indication: Encounter for routine history and physical exam for male On: 8-Xjd-947432:08 Request Rapid Flu (76978 x 2)Indication: Fever On: 83-Ahs-290016:53 Request AST (SGOT) (Aspart Amino Transferase) ([id number])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 On: :58 Request Metabolic Panel, Basic ([id number])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 On: :58 Request Lipid Panel ([id number])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 On: :58 Request Comments: in six months (approximately) Lipid Panel ([id number])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 On: :15 Request METABOLIC PANEL, COMPREHENSIVE ([id number])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 On: :14 Request CBC WITH MANUAL DIFF ([id number])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 On: 42-Zwo-589811:14 Request Rapid Strep Test, Office ([id number])Indication: Pharyngitis, acute On: 27-Mzn-334139:54 Request METABOLIC PANEL, BASIC ([id number])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 On: 2-Act-405587:30 Request CBC WITH MANUAL DIFF ([id number])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 On: 97-Hkj-056289:03 Request METABOLIC PANEL, COMPREHENSIVE ([id number])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 On: 31-Ldm-533785:03 Request LIPID PANEL ([id number])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 On: 60-Twj-577996:03 Request Planned Procedures ELECTROCARDIOGRAM, COMPLETE (ECG) On: 10-May-2018 Intent ([id number])By: Graciela Pedraza DO Comments: nsr no acute chGraciela zuñiga DO Radiology - Cervical SpineBy: Chiki On: 13-Apr-2018 Intent [facility] Radiology - Thoracic SpineBy: Chiki On: 13-Apr-[address] SCAN OF HEAD OR BRAIN WITH AND On: 13-Apr-2018 Intent WITHOUT CONTRAST ([id number])By: Chiki Comments: R/O Subdural hematoma, -head injury and headache [facility] ATTENDED SLEEP STUDY ([id number])By: Milo On: 30-May-2017 Intent Graciela QUINTERO DO, Kathleen Echo CompleteBy: Graciela Pedraza DO On: 04-May-2017 Intent Graciela Pedraza DO ELECTROCARDIOGRAM, COMPLETE (ECG) On: 04-May-2017 Intent ([id number])By: Graciela Pedraza DO Comments: nsr no acute chg Graciela QUINTERO MRI - Lumbar SpineBy: Tommy SUE Merry On: 05-Jul-2014 Intent E Toradol Injection, 30 mg ([id number])By: On: 05-Jul-2014 Intent Merry Sanders CNP Eprescribed prescriptions ([id number])By: On: 10-Oct-2013 Intent Graciela Pedraza DO, DO, Kathleen EMGBy: Merry Sanders CNP On: 12-Mar-2013 Intent Comments: rt ulner renuropathy? Nerve ConductionBy: Merry Sanders CNP On: 12-Mar-2013 Intent Comments: rt ulner neurpathy? Radiology - Wrist - RightBy: Tommy On: 12-Mar-2013 Intent Merry SUE COMP EYE EXAMINATION, ESTAB PATIENT On: 28-Aug-2012 Intent ([id number])By: Merry Sanders CNP EKG ([id number])By: CAMACHO Mendes On: 04-Apr-2008 Intent Spirometry ([id number])By: Clemencia Dick DO On: 11-Oct-2007 Intent A Comments: good effort and curve mild airway obstruction Inhaler Demo ([id number])By: Clemencia Dick DO On: 11-Oct-2007 Intent A Bio Z ([id number])By: Jane Fischer MD On: 03-Oct-2006 Intent EKG ([id number])By: Jane Fischer MD On: 03-Oct-2006 Intent Planned Medications INJECTION, KETOROLAC TROMETHAMINE, PER 15 MG Ordered: 05-Jul-2014 Pending Merry Sanders CNP Instructions Name Dates Details BMI 22.0-22.9, adult : How to access health information online Indication: BMI 22.0-22.9, adult BMI 22.0-22.9, adult : How to access health information online - Detail Indication: BMI 22.0-22.9, adult BMI 22.0-22.9, adult : Patient Instructions Indication: BMI 22.0-22.9, adult BMI 22.0-22.9, adult : How to access health information online Indication: BMI 22.0-22.9, adult BMI 22.0-22.9, adult : How to access health information online - Detail Indication: BMI 22.0-22.9, adult Back pain : Patient Instructions Indication: Back pain BMI 23.0-23.9, adult : How to access health information online Indication: BMI 23.0-23.9, adult BMI 23.0-23.9, adult : How to access health information online - Detail Indication: BMI 23.0-23.9, adult BMI 23.0-23.9, adult : Patient Instructions Indication: BMI 23.0-23.9, adult BMI 23.0-23.9, adult : How to access health information online Indication: BMI 23.0-23.9, adult BMI 23.0-23.9, adult : How to access health information online - Detail Indication: BMI 23.0-23.9, adult BMI 23.0-23.9, adult : How to access health information online Indication: BMI 23.0-23.9, adult BMI 23.0-23.9, adult : How to access health information online - Detail Indication: BMI 23.0-23.9, adult BMI 23.0-23.9, adult : Patient Instructions Indication: BMI 23.0-23.9, adult Non-smoker : How to access health information online Indication: Non-smoker Non-smoker : How to access health information online - Detail Indication: Non-smoker Non-smoker : Patient Instructions Indication: Non-smoker 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 : How to access health information online 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 : How to access health information online - Detail 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 : Patient Instructions 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 Encounter for routine history and physical exam for male : How to access health information online Indication: Encounter for routine history and physical exam for male Encounter for routine history and physical exam for male : How to access health information online - Detail Indication: Encounter for routine history and physical exam for male Encounter for routine history and physical exam for male : Patient Instructions Indication: Encounter for routine history and physical exam for male Body aches : Patient Instructions Indication: Body aches Encounters Office Visit On: 10-May-2018 15:52 Encounter Reason: Follow up for chronic medical issues - The patient feels well with minor complaints, has good energy level and is sleeping well. Patient has been compliant with instructions. Current medication use: no End: 11-May-2018 8:35 side effects and compliant with dosing regimen. Patient sleeps 7 hours per night. Nutrition: balanced diet and no supplemental vitamins & iron. The medical issues the patient is following up for kendra weller All identified problems below and high blood pressure. weight :.Encounter Diagnosis: Non-smoker, BMI 22.0-22.9, adult, Hypertension, benign, Witnessed apneic spells, Anxiety, Mitral valve insufficiency and aortic valve insufficiency, Decreased libido, Stress reaction [facility] Office Visit On: 13-Apr-2018 11:04 Encounter Reason: Back Pain - This condition occurred without any known injury. The activity began 5 day(s) ago. Symptoms include back pain. Symptoms are located in the left upper back and symmetrically. The pain radiate End: 13-Apr-2018 12:31 s to the neck and shoulder. The patient describes the pain as sharp and throbbing. Onset was 5 day(s) ago. Note for Back pain: Symptoms started about 6 days ago-slept in a friends camper-thinks hit he ad on the railing-lump on the back of gcsj-ersxjgexe-hvyvejzup headahce, never had migraines but feels like that, mornings its better but as day progresses the headache gets worse, ??vision is a littl e fuzzy-feels better with glasses off, slight nausea. Back pain is right on spine between shoulder blades. Constant pain-soreness, sharp pain to touch. No pain, numbness, tingling radiating to arms or legs. ??No fever, chills, vomiting, CP, SOB. Encounter Diagnosis: Non-smoker, Back pain, BMI 22.0-22.9, adult, Headache, Head injury, Neck pain [facility] Office Visit On: 14-Dec-2017 15:35 Encounter Reason: Follow up Meds - The patient feels well with minor complaints, has good energy level and is sleeping well. Patient has been compliant with instructions. Current medication use: no side effects and compl End: 14-Dec-2017 15:46 iant with dosing regimen. Patient sleeps 8 hours per night. Nutrition: balanced diet.Encounter Diagnosis: Non-smoker, BMI 23.0-23.9, adult, Stress reaction [facility] Office Visit On: 09-Nov-2017 15:52 Encounter Reason: Follow up for chronic medical issues - The patient feels well with minor complaints, has good energy level and is sleeping well. Patient has been compliant with instructions. Current medication use: no End: 09-Nov-2017 16:52 side effects and compliant with dosing regimen. Patient sleeps 7 hours per night. Nutrition: balanced diet and no supplemental vitamins & iron. The medical issues the patient is following up for inc lude All identified problems below and high blood pressure. weight :.Encounter Diagnosis: Non-smoker, BMI 23.0-23.9, adult, Hypertension, benign, Witnessed apneic spells, Stress reaction, Anxiety [facility] Office Visit On: 30-May-2017 15:04 Encounter Reason: Follow up tests - Date: (05/13/17 ECHO).Encounter Diagnosis: Non- smoker, BMI 23.0-23.9, adult, Mitral valve insufficiency and aortic valve insufficiency, Elevated right ventricular end-diastolic pressure, Witnessed apneic spells End: 30-May-2017 16:03 [facility] Office Visit On: 04-May-2017 15:36 Encounter Reason: Follow up for chronic medical issues - The patient feels well with minor complaints, has good energy level and is sleeping well. Patient has been compliant with instructions. Current medication use: no End: 04-May-2017 16:49 side effects and compliant with dosing regimen. Patient sleeps 7 hours per night. Nutrition: balanced diet and no supplemental vitamins & iron. The medical issues the patient is following up for inc lude All identified problems below and high blood pressure. blood pressure range :.Encounter Diagnosis: BMI 23.0-23.9, adult, Non-smoker, Hypertension, benign, Mitral valve insufficiency and aortic valve insufficiency, Family history of colon cancer , Influenza vaccination declined (Renamed from Refused influenza vaccine), Alcohol abuse, in remission [facility] Office Visit On: 02-Jun-2016 15:41 Encounter Reason: Nurse procedure visit - Reason for visit: other (Urine check).Encounter Diagnosis: Hematuria End: 02-Jun-2016 15:51 [facility] Office Visit On: 26-Apr-2016 15:41 Encounter Reason: Follow up Hypertension, [ADDITIONAL REASON] Follow up Meds - The patient feels well with minor complaints, has good energy level and is sleeping well. Patient has been compliant with instructions. Current medication use: no s End: 26-Apr-2016 16:31 zenobia effects. 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 Patient sleeps 7 hours per night. Nutrition: balanced diet. End: 02-Apr-2016 16:13 The medical issues the patient is following up for include All identified problems below and depression (anxiety). blood pressure range : (at office since he was hurt at work)., [ADDITIONAL REASON] Physical male exam - Last seen more than 1 year ago. General health: feels well with minor complaints (noted elev bp). The patient's appetite is normal. Nutrition: appropriate jumana jase diet. Exercises 5 (at work - active) days per week. Sleeps on average 7 hours per night. Safety measures include appropriate use of safety belts. There are no current emotional problems. , [ADDITIONAL REASON] Hypertension - The patient has experienced hypertension for 5 years. There has been no associated anxiety, excessive caffeine intake, obesity, sleep apnea symptoms or use of nasal decongestants. blood pressure range : (note d elev bp at [facility] when had pulled muslce but it is staying up 140's/90's-100). 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 The patient's appetite is normal. Nutrition: normal/adequate. Exerc End: 13-Jan-2015 16:20 ises 0 days per week. Sleeps on average 7 hours per night. Normal bowel and bladder habits. There are no current emotional problems. The patient's libido is normal.Encounter Diagnosis: Well Male Exam (V70.0) [facility] Office Visit On: 05-Jul-2014 12:35 Encounter Reason: Back pain - The onset of the pain has been sudden and has been occurring for 2 months. The course has been constant. The pain is characterized as shooting. The pain is described as being located in the End: 05-Jul-2014 14:37 lower back. The pain radiates to the lateral aspect of right leg. The pain is precipitated by heavy weight lifting (pain ??when sitting to standing, and it hurts when he is sitting). The symptoms have no relieving factors.Encounter Diagnosis: Low back pain [facility] Office Visit On: 10-Oct-2013 15:42 Encounter Reason: Flu Like Symptoms - The last clinic visit was 1 week(s) ago. No changes in management were made at the last visit. Symptoms include fever, chills, body aches, nasal congestion, runny nose, sore throat a End: 10-Oct-2013 16:18 nd dry cough. There is no known event that preceded symptom onset. The symptoms occur constantly. The patient describes this as moderate in severity and unchanged.Encounter Diagnosis: Fever, Body aches, Pharyngitis,acute (462.), Chills [facility] Office Visit On: 12-Mar-2013 16:05 Encounter Reason: Wrist Pain - This condition occurred following a specific injury. The patient is right hand dominant. The injury involved the right wrist. This occurred month(s) ago. Symptoms include wrist pain and dec End: 12-Mar-2013 16:38 reased range of motion. Symptoms are located in the right wrist. The pain radiates to the right hand and right forearm. The patient describes the pain as sharp. The patient describes symptoms as moderat e in severity and worsening. Symptoms are exacerbated by motion at the wrist, use of the hand and direct pressure.Encounter Diagnosis: Wrist pain (719.43) [facility] Office Visit On: 28-Aug-2012 15:49 Encounter Reason: Eye Redness - Symptoms include eye itching, eye burning, lacrimation and foreign body sensation. Symptoms are located in the left eye and right eye. Onset was sudden 3 day(s) ago. There is no known even End: 28-Aug-2012 16:22 t that preceded symptom onset. The symptoms occur constantly. The patient describes this as moderate in severity and worsening. Symptoms are not exacerbated by bright light. Associated symptoms include headache, while associated symptoms do not include photophobia. The patient is not currently being treated for this problem.Encounter Diagnosis: ACUTE CONJUNCTIVITIS (372.01) [facility] Office Visit On: 21-Jul-2010 14:41 Encounter Reason: Follow up acute care visit - The patient feeling better since last seen and improving. Patient has been compliant with instructions. Current medication use: no side effects, compliant with dosing regime End: 21-Jul-2010 15:03 n and considered effective by patient. Patient sleeps 8 hours per night. Impact of disease: emotional impact-mild. Nutrition: balanced diet and supplemental vitamins. The medical issues the patient is following up for include depression (anxiety ). Encounter Diagnosis: Anxiety state, unspecified (300.00) [facility] Office Visit On: 29-Jun-2010 15:38 Encounter Reason: Anxiety - The last clinic visit was 1 week(s) ago. No changes in management were made at the last visit. Symptoms include anxiety, difficulty concentrating, excessive worry, fatigue, irritability, panic End: 29-Jun-2010 16:23 attacks, shaky hands, sweaty palms and sleep disruption. Onset was sudden 1 week(s) ago. The symptoms occur constantly. The patient describes this as worsening.Encounter Diagnosis: Anxiety state, unspecified (300.00) [facility] Office Visit On: 27-Sep-2008 12:44 Encounter Reason: Follow up for chronic medical issues - The patient feels well with no complaints ,has good energy level and is sleeping well. Patient has been compliant with instructions. Current medication use: no dejon End: 27-Sep-2008 12:59 e effects ,compliant with dosing regimen and considered effective by patient. Patient sleeps 7 hours per night. Impact of disease: emotional impact-moderate. Nutrition: balanced diet. The medical issues the patient is following up for include cardiac issues ,depression (anxiety ) ,high blood pressure and other (alcohol abuse ). Encounter Diagnosis: Anxiety state, unspecified (300.00), Hypertension with LVH (402.90), Alcohol abuse, episodic drinking behavior (305.02), Chest pain,unspecified (786.59), Mitral valve insufficiency and aortic valve insufficiency (396.3), DEPRESSIVE DISORDER (311.0), Allergic rhinitis (477.9), Other and unspecified alcohol dependence, unspecified drinking behavior (303.90), Pharyngitis,acute (462.), Wheezing (786.07), Bronchitis,Acute (466.0), WMV, Weight loss (783.21), Acute sinusitis, unspecified (461.9), Hypotension, unspecified (458.9) , Eustachian tube dysfunction (381.81), Other peripheral vertigo [facility] Office Visit On: 06-May-2008 16:03 Encounter Reason: Follow up acute care visit - The patient feeling better since last seen and improving. Patient has been compliant with instructions. Current medication use: no side effects ,compliant with dosing regime End: 06-May-2008 16:47 n and considered effective by patient. Patient sleeps 7 hours per night. Impact of disease: emotional impact-moderate. Nutrition: balanced diet. The medical issues the patient is following up for includ e depression ,high blood pressure and other (anxiety). Encounter Diagnosis: Anxiety state, unspecified (300.00), Alcohol abuse, episodic drinking behavior (305.02), Chest pain,unspecified (786.59), Hypertension with LVH (402.90) [facility] Office Visit On: 04-Apr-2008 13:03 Encounter Reason: Follow up for chronic medical issues - The patient feels well with minor complaints ,has decreased energy level and is sleeping well. Patient has been compliant with instructions. Current medication use End: 04-Apr-2008 13:22 : no side effects ,compliant with dosing regimen and considered effective by patient. Patient sleeps 7 hours per night. Impact of disease: emotional impact-moderate. Nutrition: balanced diet. The medica l issues the patient is following up for include cardiac issues ,depression and high blood pressure. Encounter Diagnosis: Chest pain,unspecified (786.59), Hypertension with LVH (402.90), Mitral valve insufficiency and aortic valve insufficiency (396.3), DEPRESSIVE DISORDER (311.0), Anxiety state, unspecified (300.00), Alcohol abuse, episodic drinking behavior (305.02), Allergic rhinitis (477.9) [facility] Office Visit On: 11-Oct-2007 12:13 Encounter Reason: Cough - The onset of the cough has been sudden and 2 weeks ago. The cough is characterized as dry. The cough occurs all the time. The symptoms are aggravated by supine posture, but not by smoking or niki End: 11-Oct-2007 13:00 ls. The symptoms have been associated with fever ,headache ,hoarseness and wheezing, while the symptoms have not been associated with runny nose or sore throat. Note for Cough: 102-- mon and e wed of last weekEncounter Diagnosis: Wheezing (786.07), Bronchitis,Acute (466.0) [facility] Office Visit On: 20-Jul-2007 13:05 Encounter Reason: Follow up for chronic medical issues - The patient feels well with minor complaints ,has good energy level and is sleeping well. Patient has been compliant with instructions. Current medication use: no End: 20-Jul-2007 14:07 side effects ,compliant with dosing regimen and considered effective by patient. Patient sleeps 8 hours per night. Impact of disease: emotional impact-mild. Nutrition: balanced diet. The medical issues the patient is following up for include depression and high blood pressure. Note for Follow up for chronic medical issues: back down to 5mg on lexapro because run out--tell difference some recent pers on issues, see psych in past not recently, walking at night decrease amount of drinking. etoh- 3 beers/night., [facility] Diagnosis: [facility], DEPRESSIVE DISORDER (311.0), Hypertension with LVH (402.90), Anxiety state, unspecified (300.00), Other and unspecified alcohol dependence, unspecified drinking behavior (303.90), Mitral valve insufficiency and aortic valve insufficiency (396.3), Allergic rhinitis (477.9), Alcohol abuse, episodic drinking behavior (305.02) [facility] Office Visit On: 23-May-2007 9:47 Encounter Reason: Follow up Meds - The patient feels well with no complaints ,has good energy level and is sleeping well. Patient has been compliant with instructions. Current medication use: no side effects and complian End: 23-May-2007 13:32 t with dosing regimen. Patient sleeps 6 hours per night. Nutrition: balanced diet and no supplemental vitamins & iron. Note for Follow up Meds: lexaproEncounter Diagnosis: Anxiety state, unspecified (300.00), Weight loss (783.21), DEPRESSIVE DISORDER (311.0) [facility] Office Visit On: 11-May-2007 15:33 Encounter Reason: Anxiety - The onset of the anxiety has been acute and has been occurring in a persistent pattern for 1 weeks. The course has been constant. The anxiety is characterized as apprehension ,expectant dread End: 11-May-2007 16:09 ,sinking feeling ,nervousness and extreme fear. There are no specific phobias. Precipitating factors include specific circumstances (left ). The symptoms have been associated with agitation ,breathl essness ,chest pain (last night) ,feeling of sadness ,lightheadedness ,palpitations ,panic attack ,personality change ,suicidal thoughts ,sweating ,tremors and weight loss (7 lbs-after stopped eating Gloria nday), while the symptoms have not been associated with anorexia ,diarrhea ,dizziness ,dry mouth ,frequency of micturition ,hallucinations ,headache ,heat intolerance ,illusions ,increased appetite ,ins omnia ,migraine ,mutism ,nausea ,paralysis ,paresthesias ,retching ,sleep disturbance or vomiting. Previous evaluations: antidepressants (short term 15 yrs ago). , [ADDITIONAL REASON] Depression - The onset of the depression has been acute and has been occurring in a persistent pattern for 1 weeks. The course has been recurrent. The depression is described as fee ling blue ,sad ,nervous and tired. 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 ,episodes of spontaneous crying ,ex cessive sweating ,feeling tired ,financial difficulties ,lack of energy ,marital problems ,palpitations ,psychiatric illness in the past ,recent changes in life ,recent childbirth ,suicidal attempts (1 time tuesday night) and suicidal thoughts, while the symptoms have not been associated with change in job , of a loved one ,delusions ,difficulty sleeping ,drug abuse ,hallucinations ,illusions ,los s of libido ,other systemic illness ,recent divorce ,use of beta blockers ,use of methyldopa ,use of oral contraceptives ,use of reserpine ,use of sedatives or use of steroids. Encounter Diagnosis: Anxiety state, unspecified (300.00), DEPRESSIVE DISORDER (311.0) [facility] Office Visit On: 29-Dec-2006 11:03 Encounter Reason: Sinusitis/ - The duration of the symptoms are 1 week The course has been rapidly improving. Associated features include The symptoms have been associated with sinus pain (stuffy nose). No previous evalu End: 29-Dec-2006 20:35 ations were reported. none reported. Note for Sinusitis/: Still having a sense of lightheaded feeling when he changes positions intermittently. Pt was seen 1 week ago for sore throat, sinus issues and feeling lightheaded. He feels 90% better but still has the lightheaded feeling with position changes.Encounter Diagnosis: Acute sinusitis, unspecified (461.9), Allergic rhinitis (477.9), Hypotension, unspecified (458.9) [facility] Office Visit On: 21-Dec-2006 10:18 Encounter Reason: Dizziness/ - The onset of the dizziness/ has been acute and has been occurring in a persistent pattern for 4 hours (woke up feeling dizzy). The course has been constant. The dizziness/ is characterized End: 21-Dec-2006 12:23 as spinning of the environment. The dizziness/ is precipitated by position change and riding in a car. The symptoms have been associated with ear infection (ears have felt stuffy x a couple of days). Encounter Diagnosis: Pharyngitis,acute (462.), Eustachian tube dysfunction (381.81), Other peripheral vertigo (386.19) [facility] Office Visit On: 20-Oct-2006 10:04 Encounter Reason: Follow up Hypertension - The patient has experienced follow up hypertension for 3 weeks. blood pressure range : (since being on accuretic 118/88 114/84). Encounter Diagnosis: Hypertension with LVH (402.90), End: 20-Oct-2006 10:33 Alcohol abuse, episodic drinking behavior (305.02) [facility] Office Visit On: 03-Oct-2006 15:11 Encounter Reason: Hypertension - The symptoms have been associated with anxiety ,excessive caffeine intake (drinks 4-5 qd Ice tea) and family history of hypertension (parents). 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 Note for Hypertension: patient was off b/p meds for about months and then restarted tuesday, stop pills for BP few months ago, A positive in CAGEEncounter Diagnosis: Hypertension with LVH (402.90), Alcohol abuse, episodic drinking behavior (305.02) [facility] Historical Summary On: 03-Oct-2006 8:17 [facility] End: 03-Oct-2006 8:31 [facility] CampusJayda Jeffery; aubrie guarantor
--- OUTSIDE RECORDS SUMMARY | 2018-12-03 02:28 | XMS RPT_ITS | Continuity of Care Document ---
:1970 Author Organization [facility] Address [facility] [facility] [address] [place] [address] Phone Care Team Providers Name Role Phone Graciela Pedraza DO Unavailable Dr. 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) Status: Active Neck mass (R22.1, 784.2) Status: Active Neck pain on left side (M54.2, 723.1) Status: Active Non-smoker (Z78.9, V49.89) Status: Active [...] Ordered:18-Jul-2018 Eli Huntley Start : 18-Jul-2018 Active TraMADol HCl 50 MG Oral Tablet 1 to 2 Tablet q 6hrs PRN for 0 days Quantity: 30 {Tablet} Refills: 0 Ordered:08-Sep-2018 Jude Mejia Start : 08-Sep-2018 Active Comments:As needed for pain ATIVAN, 0.5MG (Oral Tablet) 1 Tablet qd [...] days Quantity: 30 {Tablet} Refills: 0 Ordered:13-Jan-2015 Sandrine Huntleysea Start : 05-Jul-2014 End : 13-Jan-2015 Inactive Comments:Medication taken as needed. start once at night if needed DEPLIN, 15MG (Oral Tablet) 1 Tablet qd for 30 days Refills: 0 Ordered:21-Jul-2010 CAMACHO Mendes Start : 29-Jun-2010 End : 21-Jul-2010 Inactive No Known Historical Medications TAMIFLU, 75MG (Oral Capsule) 1 (one) Capsule bid for 5 days Quantity: 10 {Capsule} Refills: 0 Ordered:05-Jul-2014 Chun Pedraza DOn DO, Graciela Start : 10-Oct-2013 End : 15-Oct-2013 Inactive [...] AQ, 55MCG/ACT (Nasal Aerosol Solution) 2 (two) [place](s) Daily for 0 days Quantity: 1 {Aerosol_Soln} [...] 02-Apr-2016 Other chest pain (R07.89, 786.59) Comments: [facility]--had stress 8- 08 negative Status: Resolved [...] on going weakness, 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 Status: Inactive as of 02-Apr-2016 Procedures Procedure Dates Details KNee surgery at 16 yo Completed Date Value Details 15-Sep-2018 Soft Tissue Neck WITH Contrast Result: Comments: See Note; NOTES: [facility] Imaging Services [address] [place] [address] Soft Tissue Neck WITH Contrast MR#: [id number] Acct: [id number] Name: JAYDA JEFFERY Rep # : [id number] : 1970 M 48 From: Cristóbal Kaur MD PCP: Graciela Pedraza DO Status: REG CLI Study: Soft Tissue Neck WITH Contrast Date of Exam: 09/15/18 Exam# [id number] Ordering Dr: Graciela Pedraza DO STUDY: CT SOFT TISSUE NECK WITH CONTRAST REASON FOR EXAM: Male, 48 years old. Left supraclavicular mass. RADIATION DOSAGE (If Supplied By Facility): CTDIvol = ( 15.12 ) mGy, DLP = ( 449.20 ) mGy cm TECHNIQUE: The patient was scanned in a multi-detector CT scanner. High resolution transaxial imaging was performed following intravenous administration of 100ml ml of Isovue 300 contrast material. Sagittal and coronal images were reconstructed. Individualized dose optimization techniques were used for this CT. COMPARISON: None. FINDINGS: Normal bilateral par otid glands. Normal bilateral mill helper spaces. Normal bilateral parapharyngeal spaces. There is mild fullness of the left carotid space which may represent small nodes. No focal mass however is defini tely identified. Normal bilateral sublingual and submandibular glands and spaces. Normal visualized nasopharynx. Normal retropharyngeal space. Normal perivertebral space. Normal visualized bilateral faucial tonsils. The visualized tongue, tongue base and oropharynx are normal. The visualized cervical lymph nodes (levels I-) are within normal size limits, and maintain normal morphology. There is a 2 cm nodule in the left supraclavicular region there is a visualized due to significant adjacent artifacts best seen on axial images 12-18 series 2 is also seen on coronal images 58-63 series 602. The re is otherwise no abnormal contrast enhancement. Normal epiglottis, bilateral vallecula and hypopharynx. The pre-epiglottic and paraglottic adipose spaces are normal. Normal visualized bilateral pirif orm sinuses, aryepiglottic folds, vocal cords, and arytenoid-cricoid articulations. Normal subglottic trachea. Normal bilateral lobes of the thyroid gland. Normal visualized pulmonary apices. Normal v isualized paranasal sinuses. Normal visualized cervical spine. CT/Soft Tissue Neck WITH Contrast IMPRESSION: 1. Small mass in the left supraclavi cular region as described above corresponding to the palpable abnormality. Again could represent prominent node. Other etiologies are not excluded. 2. Probable small nodes on the left side of the neck. Electronically Signed: Cristóbal Kaur MD at 15:07 EST Tel , Service support , CC: Graciela Pedraza DO Paper Counter: Signed 31-Aug-2018 Head/Neck Soft Tissue Result: Comments: See Note; NOTES: [facility] Imaging Services [address] [place] [address] Head/Neck Soft Tissue MR#: [id number] Acct: [id number] Name: JAYDA JEFFERY Rep #: [id number] : 1970 M 48 From: Ashok Farnsworth MD PCP: Graciela Pedraza DO Status: REG CLI Study: Head/Neck Soft Tissue Date of Exam: 08/31/18 Exam# [id number] Ordering Dr: Chayo Monet STUDY: SOFT TISSUE NECK ULTRASOUND REASON FOR EXAM: Male, 48 years old. Painful lump over left clavicle TECHNIQUE: Ultrasound evaluation of the soft tissues of the neck was performed with real-time and static gr ay-scale imaging. COMPARISON: None. FINDINGS: There is a 1.1 x 0.9 cm vascular hypoechoic lesion in the soft tissues overlying the left clavicle. This may represen t a lymph node. However, a soft tissue mass cannot be excluded. Further evaluation with CT is recommended. 0035 US/Head/Neck Soft Tissue IMPRESSION: 1 .1 x 0.9 cm vascular hypoechoic lesion in the soft tissues overlying the left clavicle. This may represent a lymph node. However, a soft tissue mass cannot be excluded. Further evaluation with CT is rec ommended. Electronically Signed: Ashok Farnsworth, at 18:14 EST Tel , Service support , CC: ARANZA Monet; Graciela Pedraza DO Paper Counter: Signed 13-Apr-2018 Brain/Head without Contrast Result: Comments: See Note; NOTES: [facility] Imaging Services [address] [place] [address] Brain/Head without Contrast MR#: [id number] Acct: [id number] Name: JAYDA JEFFERY Rep #: [id number] : 1970 M 47 From: Edmond Judd MD PCP: Graciela Pedraza DO Status: REG CLI Study: Brain/Head without Contrast Date of Exam: 04/13/18 Exam# [id number] Ordering Dr: Chayo Monet PPadmini STUDY: CT BRAIN WITHOUT CONTRAST REASON FOR [...] Edmond Judd MD at 13:22 EDT Tel [phone], Service support , CC: VIVIAN Monet; Graciela Pedraza DO Paper Counter: Signed 13-Apr-2018 Cerv Spine 4 or 5 Views Result: Comments: See Note; NOTES: [facility] Imaging Services [address] [place] [address] Cerv Spine 4 or 5 Views MR#: [id number] Acct: [id number] Name: JAYDA JEFFERY Rep #: [id number] : 1970 M 47 From: Frank Vivar MD PCP: Graciela Pedraza DO Status: REG CLI Study: Cerv Spine 4 or 5 Views Date of Exam: 04/13/18 Exam# [id number] Ordering Dr: Chayo Monet STUD Y: X-RAY [...] Fax CC: VIVIAN Monet; Graciela Pedraza DO Paper Counter: Signed 13-Apr-2018 Thoracic Spine 3 Views Result: Comments: See Note; NOTES: [facility] Imaging Services [address] [place] [address] Thoracic Spine 3 Views MR#: [id number] Acct: [id number] Name: JAYDA JEFFERY Rep #: [id number] : 1970 47 From: Frank Vivar MD PCP: Graciela Pedraza DO Status: REG CLI Study: Thoracic Spine 3 Views Date of Exam: 04/13/18 Exam# [id number] Ordering Dr: Chayo Monet STUDY: X-RAY - [...] 23:08 EDT , Service support , CC: VIVIAN Monet; Graciela Pedraza DO Paper Counter: Signed 13-May-2017 Echocardiogram Complete Result: Comments: See Note; NOTES: [facility] Cardiovascular Services [address] [place] [address] Echo Complete 05/13/17 1303 MR#: [id number] Acct: [id number] Name: JAYDA JEFFERY Rep #: [id number] : 1970 46 From: Leno Layne MD Attending Dr: Graciela Pedraza DO Status: REG CLI Ordering Dr: Graciela Pedraza DO Date: 05/13/17 Location: [facility] Sex: M C Admitted: Se[place] son For Study: MV Insufficiency Procedure This [...] Ordering Physician: Graciela Pedraza Performed By: Irma Carrasco, RDJULIA, RVT 05/13/171651 Date Leno Layne MD CC: Graciela Pedraza DO Date Dictated: 05/13/17 1303 Date Transcribed: 05/13/171651 Paper Counter: Signed 02-Apr-2016 ELECTROCARDIOGRAM, COMPLETE (ECG) (07275) Comments: nsr no acute chg Result: [MEASUREMENTS ANALYSIS] Date of Test: 04/02/2016 14:47:54; Heart Rate: 81; WI Interval: 126; QRS: 92; QT Interval: 360; Corrected QT Interval (QTc): 396; P Wave Friendship: 30; QRS Wave Friendship: 27; T Wave Friendship: -1; Blood Pressure: 148/102 [ECG DIAGNOSTIC STATEMENTS] [...] Most Recent Primary Occupation Comments: workign for [employer]. Status: Active No Drug Use Status: Active Number of Child (age 0-17) Dependents Comments: 1 Status: Active Tobacco Use Comments: Uses chewing tobacco - Not often--quit 2005 Status: Active Vital Signs Date Test Result Details :34 Temperature 97.2 f Comments: Method: Temporal Pulse 70 /min Comments: Pattern: Regular Respiration Rate 16 /min Comments: Pattern: Unlabored O2 SAT 97 % Comments: Room air BP Systolic 116 mm[Hg] Comments: Patient Position: Sitting; Cuff Location: Left Arm; Cuff Size: Standard BP Diastolic 78 mm[Hg] Comments: Patient Position: Sitting; Cuff Location: Left Arm; Cuff Size: Standard Weight 156 lb Height 71 in Body Mass Index Calculated 21.76 kg/m2 Body Surface Area Calculated 1.9 m2 :56 Pulse 68 /min Comments: Pattern: Regular Respiration [...] kg/m2 Body Surface Area Calculated 1.86 m2 87-Eix-343313:44 Pulse 80 /min Comments: Pattern: Regular Respiration [...] Height 0 in Head Circumference 0.00 cm :11 Temperature 98.1 f Comments: Method: Oral Pulse [...] 0.00 cm Results Date Description Value Details 10-Diu-664985:19 C-REACTIVE PROTEIN (79125) Comments: PATIENT NOT FASTINGPERFORMED BY: [facility] Gubttl1579 [facility] [id number] C-Reactive Protein, Quant 2.2 mg/L (Normal) Range: 0.0-4.9 22-Lme-641161:19 SED RATE ERYTHROCYTE (71385) Comments: PATIENT NOT FASTINGPERFORMED BY: [facility] Mywgpt2467 [facility] [id number] Sedimentation Rate-Westergren 2 mm/h (Normal) Range: 0-15 86-Toq-000303:19 METABOLIC PANEL, COMPREHENSIVE Comments: PATIENT NOT FASTINGPERFORMED BY: [facility]Re[facility] South JerseyDrwjyf0471 [facility] [id number] ([id number]) ALT (SGPT) 17 [iU]/L (Normal) Range: 0-44 AST (SGOT) 15 [iU]/L (Normal) Range: 0-40 Alkaline Phosphatase 53 [iU]/L (Normal) Range: 39-117 Bilirubin, Total 0.5 mg/dL (Normal) Range: 0.0-1.2 A/G Ratio 1.8 (Normal) Range: 1.2-2.2 Globulin, Total 2.5 g/dL (Normal) Range: 1.5-4.5 Albumin 4.6 g/dL (Normal) Range: 3.5-5.5 Protein, Total 7.1 g/dL (Normal) Range: 6.0-8.5 Calcium 9.1 mg/dL (Normal) Range: 8.7-10.2 Carbon Dioxide, Total 24 mmol/L (Normal) Range: 20-29 Chloride 99 mmol/L (Normal) Range: 96-106 Potassium 4.1 mmol/L (Normal) Range: 3.5-5.2 Sodium 139 mmol/L (Normal) Range: 134-144 BUN/Creatinine Ratio 12 (Normal) Range: 9-20 eGFR If Africn Am 102 mL/min/1.73 (Normal) eGFR If NonAfricn Am 89 mL/min/1.73 (Normal) Creatinine 1.00 mg/dL (Normal) Range: 0.76-1.27 BUN 12 mg/dL (Normal) Range: 6-24 Glucose 88 mg/dL (Normal) Range: 65-99 39-Ozj-120601:19 CBC, PLATELETS & AUT DIFF Comments: PATIENT NOT FASTINGPERFORMED BY: [facility] Yflvez2398 [facility] [id number] ([id number]) Immature Grans (Abs) 0.0 {x10E3/uL} (Normal) Range: 0.0-0.1 Immature Granulocytes 0 % (Normal) Baso (Absolute) 0.0 {x10E3/uL} (Normal) Range: 0.0-0.2 Eos (Absolute) 0.1 {x10E3/uL} (Normal) Range: 0.0-0.4 Monocytes(Absolute) 0.9 {x10E3/uL} (Normal) Range: 0.1-0.9 Lymphs (Absolute) 1.5 {x10E3/uL} (Normal) Range: 0.7-3.1 Neutrophils (Absolute) 5.2 {x10E3/uL} (Normal) Range: 1.4-7.0 Basos 0 % (Normal) Eos 1 % (Normal) Monocytes 12 % (Normal) Lymphs 20 % (Normal) Neutrophils 67 % (Normal) Platelets 234 {x10E3/uL} (Normal) Range: 150-379 RDW 13.1 % (Normal) Range: 12.3-15.4 MCHC 34.5 g/dL (Normal) Range: 31.5-35.7 MCH 31.2 pg (Normal) Range: 26.6-33.0 MCV 90 fL (Normal) Range: 79-97 Hematocrit 42.0 % (Normal) Range: 37.5-51.0 Hemoglobin 14.5 g/dL (Normal) Range: 13.0-17.7 RBC 4.65 {x10E6/uL} (Normal) Range: 4.14-5.80 WBC 7.8 {x10E3/uL} (Normal) Range: 3.4-10.8 3-Rwi-499520:34 Comprehensive Metabolic Profil Comments: Order Date: 04/13/18Order Info: 0786-1 - [facility] [address] [place] [place], [address] GAP 5 (Normal) Range: 5-15 CO2 31.0 [...] Comments: Please note revised GLUCOSE reference range germfmyhh08/02/2018. 42-Lfd-382346:42 Urinalysis, Office (36193) UA - LEUKOCYTE ESTERASE Negative (Normal) UA - NITRITE Negative (Normal) URINE UROBILINGN AMARIS TIMED Normal mg/dL (Normal) UA - PROTEIN Negative mg/dL (Normal) UA - PH 7.0 (Normal) UA - BLOOD Negative (Normal) UA - SPECIFIC GRAVITY 1.010 (Normal) UA - KETONES Negative mg/dL (Normal) UA - BILIRUBIN Negative (Normal) UA - GLUCOSE Negative (Normal) :52 CBC W/Diff, Automated Comments: [facility] [address] [place], [place], [id number] Absolute Lymph 1.66 {X10_3/ul} (Normal) Range: 0.83-4.51 [...] 4.6-6.2 WBC 4.5 K/mm3 (Normal) Range: 4.4-11.0 09-Wtv-651493:52 Comprehensive Metabolic Profil Comments: [facility] [address] [place], [address] GAP 6 (Normal) Range: 5-15 CO2 28.0 [...] 7-18 GLU 83 mg/dL (Normal) Range: 70-110 33-Wii-265138:52 Lipid Profile Comments: [facility] [address] [place], [address] VLDL 30 mg/dL (Normal) Range: 5-40 LDL [...] High Risk :52 Microalb:Creat Ratio,Random UR Comments: [facility] [address] [place], [place], [id number] MALB:CREAT 8.0 {mg/g_CRE} (Normal) MICROALBUMIN,UR 20.2 mg/L (Normal) UR CREAT 252.00 mg/dL (Normal) 55-Lnm-910593:52 PSA,Total - Annual Screen Comments: [facility] [address] [place], [place], [id number] PSA,TOT SCREEN 1.30 ng/mL (Normal) Range: 0.00-4.00 Comments: This test was performed using the TPSA assay method for theITA Software chemistry system. Values obtained with differentassay methods cannot be used interchangably.When changing PSA assays in the course of monitoring apatient, additional sequential testing should be carriedout to confirm baseline values. 49-Lxy-156698:52 Urinalysis, Complete Comments: How was Urine Obtained? CLEAN [facility] [address] [place], [place], [id number] MUCUS, URINE 0 SEEN {/hpf} (Normal) BACTERIA [...] (Normal) CLARITY Clear (Normal) COLOR Yellow (Normal) :18 CBC With Differential/Platelet Comments: PATIENT WAS FASTINGPERFORMED BY: [facility] MonoLibreRehabilitation Hospital of South JerseyUashed8781 [facility] [id number] Information: [id number] Immature Grans (Abs) 0.0 {x10E3/uL} (Normal) Range: [...] Panel (14) Comments: PATIENT WAS FASTINGPERFORMED BY: [facility]Re[facility] South JerseyZvxvwe0401 [facility] [id number] ALT (SGPT) 21 [iU]/L (Normal) Range: 0-44 [...] Glucose, Serum 92 mg/dL (Normal) Range: 65-99 97-Kmp-78876:18 Lipid Panel With LDL/HDL Comments: PATIENT WAS FASTINGPERFORMED BY: [facility]CoRehabilitation Hospital of South JerseyZyzqgw8220 [facility] [id number] Ratio LDL/HDL Ratio 1.9 {ratio_units} (Normal) Range: [...] Microscopic Examination Comments: PATIENT WAS FASTINGPERFORMED BY: Eneedo6370 [facility] [id number] Bacteria None seen (Normal) Mucus Threads Present (Normal) Epithelial Cells (non renal) 0-10 {/hpf} (Normal) Range: 0 - 10 RBC None seen {/hpf} (Normal) Range: 0 - 2 WBC 0-5 {/hpf} (Normal) Range: 0 - 5 :18 Prostate-Specific Ag, Serum Comments: PATIENT WAS FASTINGPERFORMED BY: Eneedo6370 [facility] [id number] Prostate Specific Ag, 1.5 ng/mL (Normal) Range: 0.0-4.0 Serum Comments: [employer] ECLIA methodology. .According to the [place] [employer], Serum PSA shoulddecrease and remain [...] Urinalysis, Complete Comments: PATIENT WAS FASTINGPERFORMED BY: Eneedo6370 KitchInPending [facility] [id number] Microscopic Examination See below: (Normal) Comments: Microscopic was indicated and was performed. Nitrite, Urine Negative (Normal) Urobilinogen,Semi-Qn 0.2 mg/dL (Normal) Range: 0.0-1.9 Bilirubin Negative (Normal) Occult Blood Negative (Normal) Ketones Negative (Normal) Glucose Negative (Normal) Protein 1+ (Abnormal) WBC Esterase Negative (Normal) Appearance Clear (Normal) Urine-Color Yellow (Normal) pH 7.0 (Normal) Range: 5.0-7.5 Specific Riva 1.021 (Normal) Range: 1.005-1.030 81-Dvc-745495:54 Influenza A&B Viral Culture (05622) Influenza A&B Viral Culture positive A and Negative B (Normal) 0-Mqf-774368:18 WRIST MIN 3 VIEWS Radiology See Note [...] Judd M.D.March 16, 2013 at 1:49:04 PM [id number] Signed GP/GP If you are the referring physician and would like to consul t with theradiologist who provided this interpretation, please contact Miguel Rai at [phone]. If this radiologist is unavailable, youwill be directed to another radiologist to assist. If you are a patient with a question regarding this report, pleasecontactyour referring physician directly. Professional Interpretation Provided By: [employer] [place], Phone , jeanette documents contain legally protected and confidential [...] 03/16/13 1515 by ITS IMPORTSign by Binta HATHAWAY,Edmond on 03/16/13 1516 Sign by: Binta HATHAWAY,Edmond 61-Qbu-532655:06 CBCD,SMEAR DIFF BAND 1 % (Normal) Range: [...] 47-70 WBC 6.6 K/mm3 (Normal) Range: 4.4-11.0 :06 COMP METABOLIC A/G 1.4 {RATIO} (Normal) Range: [...] T PROT 7.6 g/dL (Normal) Range: 6.4-8.2 11-Cry-484075:06 LIPID CHOL 196 mg/dL (Normal) Comments: <200 [...] mg/dL VLDL 12 mg/dL (Normal) Range: 5-40 0-Ubk-762246:07 CBC (Auto) (76928) Comments: PATIENT NOT FASTINGPERFORMED BY: [facility] Jsjokj5670 [facility] [id number] Hematocrit 43.5 % (Normal) Range: 36.0-50.0 Hemoglobin 15.1 g/dL (Normal) Range: 12.5-17.0 MCH 33.7 pg (Normal) Range: 27.0-34.0 MCHC 34.7 g/dL (Normal) Range: 32.0-36.0 MCV 97 fL (Normal) Range: 80-98 Platelets 189 {x10E3/uL} (Normal) Range: 140-415 RBC 4.49 {x10E6/uL} (Normal) Range: 4.10-5.60 RDW 12.9 % (Normal) Range: 11.7-15.0 WBC 4.5 {x10E3/uL} (Normal) Range: 4.0-10.5 4-Wac-564914:07 Metabolic Panel, Comprehensive Comments: PATIENT NOT FASTINGClinical Information: ADD DRAW FEE [id number] ADD J0 7706 PERFORMED BY: KIA LabCoRehabilitation Hospital of South JerseyFwswju8151 [facility] [id number] ([id number]) A/G Ratio 2.0 (Normal) Range: 1.1-2.5 Albumin, [...] 1.49 INDETERMINANT > OR = 1.50 SUGGEST IA Plan of Care Name Dates Details Instructions Neck mass : Follow up if no improvement or if symptoms worsen Indication: Neck mass Non-smoker : Eprescribed prescriptions (G8553) Indication: Non-smoker Hypertension, benign : Follow up in 6 [...] disease without heart failure Planned Observations TSH (67071)Indication: Anxiety On: :26 Request URINALYSIS, W/ MICRO (67021)Indication: Hypertension, benign On: :26 Request MICROALBUMIN: CREATININE RATIO (45004) AND (96353)Indication: Hypertension, benign On: :26 Request METABOLIC PANEL, COMPREHENSIVE (46912)Indication: Hypertension, benign On: :26 Request LIPOPROTEIN, BLD, BY NMR (67372)Indication: Hypertension, benign On: : Request CBC W/AUTO DIFF WBC (94337)Indication: Hypertension, benign On: : Request METABOLIC PANEL, COMPREHENSIVE (01086)Indication: Headache On: 4-Qwi-637694:32 Request URINALYSIS, W/ MICRO (98643)Indication: Hypertension, benign On: 05-Pma-645176:14 Request MICROALBUMIN: CREATININE RATIO (60707) AND (87691)Indication: Hypertension, benign On: 05-Xpc-796762:14 Request METABOLIC PANEL, COMPREHENSIVE (88652)Indication: Hypertension, benign On: 12-Vgb-421837:14 Request LIPID PANEL (19410)Indication: Hypertension, benign On: 43-Tnq-148390:14 Request CBC W/AUTO DIFF WBC (75201)Indication: Hypertension, benign On: 31-Bjz-941277:14 Request URINALYSIS, W/ MICRO (79810)Indication: Hypertension, benign On: 29-Ogs-035622:54 Request MICROALBUMIN: CREATININE RATIO (82826) AND (05400)Indication: Hypertension, benign On: 39-Ywn-163378:54 Request METABOLIC PANEL, COMPREHENSIVE (82292)Indication: Hypertension, benign On: 04-Aot-117045:54 Request LIPID PANEL (77545)Indication: Hypertension, benign On: 80-Ruh-561698:54 Request CBC W/AUTO DIFF WBC (86873)Indication: Hypertension, benign On: 30-Igj-397605:54 Request URINALYSIS (50494)Indication: Hematuria On: 88-Rad-002835:43 Request URINALYSIS, W/ MICRO (49767)Indication: Hematuria On: :30 Request LIPID PANEL (57587)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 On: :32 Request URINALYSIS, W/ MICRO (01386)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 On: :32 Request MICROALBUMIN: CREATININE RATIO (24112) AND (34323)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 On: :32 Request METABOLIC PANEL, COMPREHENSIVE (32824)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 On: : Request CBC W/AUTO DIFF WBC (17213)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 On: : Request PSA (PROSTATE SPECIFIC ANTIGEN) (V76.44)Indication: Encounter for screening for malignant neoplasm of prostate (Renamed from Screening for prostate cancer) On: :30 Request UPEP (67623)Indication: Urine protein increased On: 85-Wus-99166:55 Request MICROALBUMIN: CREATININE RATIO (23352) AND (51610)Indication: Urine protein increased On: 35-Keq-46393:55 Request URINALYSIS, W/ MICRO (99853)Indication: Encounter for routine history and physical exam for male On: 8-Lyp-618145:09 Request METABOLIC PANEL, COMPREHENSIVE (69801)Indication: Encounter for routine history and physical exam for male On: 3-Zhd-797895:09 Request LIPID PANEL (12886)Indication: Encounter for routine history and physical exam for male On: 1-Whn-491267:09 Request CBC with auto diff (17929)Indication: Encounter for routine history and physical exam for male On: 6-Vfc-416393:08 Request PSA (PROSTATE SPECIFIC ANTIGEN) (V76.44)Indication: Encounter for routine history and physical exam for male On: 4-Yll-120259:08 Request Rapid Flu (01703 x 2)Indication: Fever On: 60-Lfv-946203:53 Request AST (SGOT) (Aspart Amino Transferase) (62730)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 On: 13-Yrc-004642:58 Request Metabolic Panel, Basic (09654)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 On: 32-Llj-092677:58 Request Lipid Panel (84276)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 On: 31-Dlk-508585:58 Request Comments: in six months (approximately) Lipid Panel (45205)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 On: 04-Mrf-282901:15 Request METABOLIC PANEL, COMPREHENSIVE (22546)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 On: 05-Vyw-392755:14 Request CBC WITH MANUAL DIFF (59965)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 On: 58-Wmc-971440:14 Request Rapid Strep Test, Office (81224)Indication: Pharyngitis, acute On: 56-Kti-748929:54 Request METABOLIC PANEL, BASIC (62102)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 On: 1-Juw-266849:30 Request CBC WITH MANUAL DIFF (86295)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 On: 43-Jfr-679639:03 Request METABOLIC PANEL, COMPREHENSIVE (36909)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 On: 61-Ruu-907709:03 Request LIPID PANEL (36936)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 On: 54-Mjk-391393:[address] NECK SOFT TISSUE W CONTRAST On: 01-Sep-2018 Intent (81949)By: Graciela Pedraza DO, DO, Kathleen ULTRASOUND OF NECK LYMPHATICS On: 31-Aug-2018 Intent (94889)By: Chayo Monet Comments: STAT: Attention Left clavicle area ELECTROCARDIOGRAM, COMPLETE (ECG) On: 10-May-2018 Intent (98227)By: Graciela Pedraza DO Comments: nsr no acute chg Graciela Pedraza DO Radiology - Cervical SpineBy: On: 13-Apr-2018 Intent Chayo Mnoet Radiology - Thoracic SpineBy: On: 13-Apr-[address] SCAN OF HEAD OR BRAIN WITH AND On: 13-Apr-2018 Intent WITHOUT CONTRAST (75702)By: Chiki Comments: R/O Subdural hematoma, -head injury and headache Chayo ATTENDED SLEEP STUDY (80679)By: On: 30-May-2017 Intent Graciela Pedraza DO, DO, Kathleen Echo CompleteBy: Graciela Pedraza DO On: 04-May-2017 Intent Graciela Pedraza DO ELECTROCARDIOGRAM, COMPLETE (ECG) On: 04-May-2017 Intent (46550)By: Graciela Pedraza DO Comments: nsr no acute chg Graciela Pedraza DO MRI - Lumbar SpineBy: Tommy SUE, On: 05-Jul-2014 Intent Merry Delcid Toradol Injection, 30 mg (J1885)By: On: 05-Jul-2014 Intent Merry Sanders CNP Eprescribed prescriptions (G8553)By: On: 10-Oct-2013 Intent Graciela Pedraza DO, DO, Kathleen EMGBy: Merry Sanders CNP On: 12-Mar-2013 Intent Comments: rt ulner renuropathy? Nerve ConductionBy: Merry Sanders CNP On: 12-Mar-2013 Intent Farhana Comments: rt ulner neurpathy? Radiology - Wrist - RightBy: Tommy On: 12-Mar-2013 Intent Merry SUE COMP EYE EXAMINATION, ESTAB PATIENT On: 28-Aug-2012 Intent (66913)By: Merry Sanders CNP EKG (57633)By: CAMACHO Mendes On: 04-Apr-2008 Intent Spirometry (03074)By: Kapil QUINTERO, On: 11-Oct-2007 Intent Clemencia Hood Comments: good effort and curve mild airway obstruction Inhaler Demo (42508)By: Kapil QUINTERO, On: 11-Oct-2007 Intent Clemencia A Bio Z (30784)By: Jane Fischer MD On: 03-Oct-2006 Intent EKG (91735)By: Jane Fischer MD On: 03-Oct-2006 Intent Planned Medications INJECTION, KETOROLAC TROMETHAMINE, PER 15 MG Ordered: 05-Jul-2014 Pending Merry Sanders CNP Instructions Name Dates Details Non-smoker : How to access health information online Indication: Non-smoker Non-smoker : How to access health information online - Detail Indication: Non-smoker Neck pain on left side : Patient Instructions Indication: Neck pain on left side BMI 22.0-22.9, adult : How to access [...] : Patient Instructions Indication: Body aches Encounters Phone Encounter On: 18-Sep-2018 14:03 Encounter Diagnosis: Lymph node enlargement End: 18-Sep-2018 14:31 [facility] Annotation/Addendum On: 08-Sep-2018 14:46 Encounter Diagnosis: Neck pain on left side End: 08-Sep-2018 14:49 [facility] Phone Encounter On: 01-Sep-2018 14:50 Encounter Diagnosis: Neck mass End: 01-Sep-2018 15:14 [facility] Office Visit On: 31-Aug-2018 9:33 Encounter Reason: Lumps - The lumps has been occurring for 1 day. Note for Lumps: Symptoms started 1 day ago with lump above left collarbone. It was about the size of a pea last night, and now this morning it is larger End: 31-Aug-2018 10:36 and very painful to touch. No history of cancers, night sweats, fever, chills, wt loss or gain, appetite changes, fatigue or recent illnesses. No increased redness or drainage. No known injury. Does not smoke.Encounter Diagnosis: BMI 22.0-22.9, adult, Non-smoker, Neck mass, Neck pain on left side [facility] Office Visit On: 10-May-2018 15:52 Encounter Reason: [...] on the railing-lump on the back of icxg-bfayvhlia-cghjzicai headahce, never had migraines but feels like [...] throat. Note for Cough: 102-- mon and tue wed of last weekEncounter Diagnosis: Wheezing (786.07), [...] of drinking. 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 Note for Hypertension: patient was off b/p meds for about months and then restarted tuesday, stop pills for BP few months ago, A positive in CAGEEncounter Diagnosis: Hypertension with LVH (402.90), Alcohol abuse, episodic drinking behavior (305.02) [facility] Historical Summary On: 03-Oct-2006 8:17 [facility] End: 03-Oct-2006 8:31 [facility] Center[facility] Jeffery; a guarantor
--- OUTSIDE RECORDS SUMMARY | 2018-12-03 02:29 | XMS RPT_ITS | Continuity of Care Document ---
:1970 Author Organization [facility] Address [facility] [address] [place] [address] Phone Care Team Providers Name Role Phone Graciela Pedraza DO Unavailable Dr. Juan Terry Unavailable Jane Fischer MD Unavailable Terry Tello Unavailable Unavailable Jude Mejia Unavailable Unavailable JEANNE Jimenez Unavailable Unavailable Taryn Cox Unavailable Unavailable Chayo Monet Unavailable Unavailable Unavailable Unavailable Problems Name Dates [...] days Quantity: 1 {Solution} Refills: 0 Ordered:12-Mar-2013 Ragnii Young LPN Start : 28-Aug-2012 End : [...] AQ, 55MCG/ACT (Nasal Aerosol Solution) 2 (two) Lima(s) Daily for 0 days Quantity: 1 {Aerosol_Soln} [...] 02-Apr-2016 Other chest pain (R07.89, 786.59) Comments: [facility]--had stress 8- 08 negative Status: Resolved [...] on going weakness, 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 Status: Inactive as of 02-Apr-2016 Procedures Procedure Dates Details KNee surgery at 16 yo Completed Date Value Details 31-Aug-2018 Head/Neck Soft Tissue Result: Comments: See Note; NOTES: [facility] Imaging Services [address] [place] [address] Head/Neck Soft Tissue MR#: [id number] Acct: [id number] Name: JAYDA JEFFERY Rep #: [id number] : 1970 48 From: Ashok Farnsworth MD PCP: Graciela Pedraza DO Status: REG CLI Study: Head/Neck Soft Tissue Date of Exam: 08/31/18 Exam# [id number] Ordering Dr: Chayo Monet CRITICAL POWER TECHNICIAN-C STUDY: SOFT TISSUE NECK ULTRASOUND REASON FOR [...] , CC: ARANZA Monet; Graciela Pedraza DO Spray Maker: Signed 13-Apr-2018 Brain/Head without Contrast Result: Comments: See Note; NOTES: [facility] Imaging Services [address] [place] [address] Brain/Head without Contrast MR#: [id number] Acct: [id number] Name: JAYDA JEFFERY Rep #: [id number] : 1970 M 47 From: Edmond Judd MD PCP: Graciela Pedraza DO Status: REG CLI Study: Brain/Head without Contrast Date of Exam: 04/13/18 Exam# [id number] Ordering Dr: Chayo Monet P-C STUDY: CT [...] Edmond Judd MD at 13:22 EDT Tel [phone], Service support , CC: VIVIAN Monet; Graciela Pedraza DO Spray Maker: Signed 13-Apr-2018 Cerv Spine 4 or 5 Views Result: Comments: See Note; NOTES: [facility] Imaging Services [address] [place] [address] Cerv Spine 4 or 5 Views MR#: [id number] Acct: [id number] Name: JAYDA JEFFERY Rep #: [id number] : 1970 M 47 From: Frank Vivar MD PCP: Graciela Pedraza DO Status: REG CLI Study: Cerv Spine 4 or 5 Views Date of Exam: 04/13/18 Exam# [id number] Ordering Dr: Chayo Monet STUD Y: X-RAY [...] Fax CC: VIVIAN Monet; Graciela Pedraza DO Spray Maker: Signed 13-Apr-2018 Thoracic Spine 3 Views Result: Comments: See Note; NOTES: [facility] Imaging Services [address] [place] [address] Thoracic Spine 3 Views MR#: [id number] Acct: [id number] Name: JAYDA JEFFERY Rep #: [id number] : 1970 M 47 From: Frank Vivar MD PCP: Graciela Pedraza DO Status: REG CLI Study: Thoracic Spine 3 Views Date of Exam: 04/13/18 Exam# [id number] Ordering Dr: Chayo Monet STUDY: X-RAY - [...] , CC: VIVIAN Monet; Graciela Pedraza DO Spray Maker: Signed 13-May-2017 Echocardiogram Complete Result: Comments: See Note; NOTES: [facility] Cardiovascular Services [address] [place] [address] Echo Complete 05/13/17 1303 MR#: [id number] Acct: [id number] Name: JAYDA JEFFERY Rep #: [id number] : 1970 46 From: Leno Layne MD Attending Dr: Graciela Pedraza DO Status: REG CLI Ordering Dr: Graciela Pedraza DO Date: 05/13/17 Location: [facility] Sex: M C Admitted: Seble son For [...] Physician: Graciela Pedraza Performed By: Irma Carrasco, GENEVIEVE, RVT 05/13/17 1652 Date Leno Layne MD CC: Graciela Pedraza DO Date Dictated: 05/13/17 1309 Date Transcribed: 05/13/17 9471 Spray Maker: Signed 02-Apr-2016 ELECTROCARDIOGRAM, COMPLETE (ECG) (40375) Comments: nsr no acute chg Result: [MEASUREMENTS ANALYSIS] Date of Test: 04/02/2016 14:47:54; Heart Rate: 81; TN Interval: 126; QRS: 92; QT Interval: 360; Corrected QT Interval (QTc): 396; P Wave Prole: 30; QRS Wave Prole: 27; T Wave Prole: -1; Blood Pressure: 148/102 [ECG DIAGNOSTIC STATEMENTS] [...] Most Recent Primary Occupation Comments: workign for [employer]. Status: Active No Drug Use Status: [...] 0.00 cm Results Date Description Value Details 24-Vtb-078983:19 C-REACTIVE PROTEIN (61540) Comments: PATIENT NOT FASTINGPERFORMED BY: [employer] Stevie [facility] [id number] C-Reactive Protein, Quant 2.2 mg/L (Normal) Range: 0.0-4.9 69-Zvx-141352:19 SED RATE ERYTHROCYTE (46132) Comments: PATIENT NOT FASTINGPERFORMED BY: [employer] Eebmhr7606 [facility] [id number] Sedimentation Rate-Westergren 2 mm/h (Normal) Range: 0-15 52-Rwk-588888:19 METABOLIC PANEL, COMPREHENSIVE Comments: PATIENT NOT FASTINGPERFORMED BY: [employer] [facility]vie [facility] [id number] (60184) ALT (SGPT) 17 [iU]/L (Normal) Range: 0-44 [...] 6-24 Glucose 88 mg/dL (Normal) Range: 65-99 75-Ayw-882794:19 CBC, PLATELETS & AUT DIFF Comments: PATIENT NOT FASTINGPERFORMED BY: [facility] Ktbnwl9616 [facility] [id number] (09094) Immature Grans (Abs) 0.0 {x10E3/uL} (Normal) Range: [...] 4.14-5.80 WBC 7.8 {x10E3/uL} (Normal) Range: 3.4-10.8 7-Sgp-359082:34 Comprehensive Metabolic Profil Comments: Order Date: 04/13/18Order Info: 0786-1 - [facility] [address] [place] [address], [id number] GAP 5 (Normal) Range: 5-15 CO2 31.0 [...] Comments: Please note revised GLUCOSE reference range auoigybzg93/02/2018. 79-Jrt-618101:42 Urinalysis, Office (86779) UA - LEUKOCYTE ESTERASE Negative (Normal) UA - NITRITE Negative (Normal) URINE UROBILINGN AMARIS TIMED Normal mg/dL (Normal) UA - PROTEIN Negative mg/dL (Normal) UA - PH 7.0 (Normal) UA - BLOOD Negative (Normal) UA - SPECIFIC GRAVITY 1.010 (Normal) UA - KETONES Negative mg/dL (Normal) UA - BILIRUBIN Negative (Normal) UA - GLUCOSE Negative (Normal) 59-Lut-497218:52 CBC W/Diff, Automated Comments: [facility] [address] [place], [address] Absolute Lymph 1.66 {X10_3/ul} (Normal) Range: 0.83-4.51 [...] 4.6-6.2 WBC 4.5 K/mm3 (Normal) Range: 4.4-11.0 49-Wix-732924:52 Comprehensive Metabolic Profil Comments: [facility] [address] [place], [place], [address] GAP 6 (Normal) Range: 5-15 CO2 28.0 [...] 7-18 GLU 83 mg/dL (Normal) Range: 70-110 57-Pfx-751749:52 Lipid Profile Comments: [facility] [address] [place], [place], [id number] VLDL 30 mg/dL (Normal) Range: 5-40 LDL [...] 200-240 mg/dL Borderline >240 mg/dL High Risk 92-Fpd-664645:52 Microalb:Creat Ratio,Random UR Comments: [facility] [address] [place], [address] MALB:CREAT 8.0 {mg/g_CRE} (Normal) MICROALBUMIN,UR 20.2 mg/L (Normal) UR CREAT 252.00 mg/dL (Normal) :52 PSA,Total - Annual Screen Comments: [facility] [address] [place], [place], [id number] PSA,TOT SCREEN 1.30 ng/mL (Normal) Range: 0.00-4.00 Comments: This test was performed using the TPSA assay method for [employer]io[employer] chemistry system. Values obtained with differentassay methods cannot be used interchangably.When changing PSA assays in the course of monitoring apatient, additional sequential testing should be carriedout to confirm baseline values. :52 Urinalysis, Complete Comments: How was Urine Obtained? [facility] [address] [place], [address] MUCUS, URINE 0 SEEN {/hpf} (Normal) BACTERIA [...] (Normal) CLARITY Clear (Normal) COLOR Yellow (Normal) 04-Cak-39565:18 CBC With Differential/Platelet Comments: PATIENT WAS FASTINGPERFORMED BY: [facility] [place] 8058370 [facility] [id number] Information: [id number],[id number] Immature Grans (Abs) 0.0 {x10E3/uL} (Normal) Range: [...] 4.14-5.80 WBC 5.0 {x10E3/uL} (Normal) Range: 3.4-10.8 31-Pmk-34318:18 Comp. Metabolic Panel (14) Comments: PATIENT WAS FASTINGPERFORMED BY: [facility] Xxhnkx3246 [facility] [id number] ALT (SGPT) 21 [iU]/L (Normal) Range: 0-44 [...] With LDL/HDL Comments: PATIENT WAS FASTINGPERFORMED BY: [employer] [id number] Ratio LDL/HDL Ratio 1.9 {ratio_units} (Normal) Range: [...] Microscopic Examination Comments: PATIENT WAS FASTINGPERFORMED BY: [id number] [facility] [id number] Bacteria None seen (Normal) Mucus Threads Present (Normal) Epithelial Cells (non renal) 0-10 {/hpf} (Normal) Range: 0 - 10 RBC None seen {/hpf} (Normal) Range: 0 - 2 WBC 0-5 {/hpf} (Normal) Range: 0 - 5 :18 Prostate-Specific Ag, Serum Comments: PATIENT WAS FASTINGPERFORMED BY: [id number] [facility] [id number] Prostate Specific Ag, 1.5 ng/mL (Normal) Range: 0.0-4.0 Serum Comments: Kevin ECLIA methodology. .According to the [place] [employer], Serum PSA shoulddecrease and remain [...] Urinalysis, Complete Comments: PATIENT WAS FASTINGPERFORMED BY: [facility]6370 [facility] [id number] Microscopic Examination See below: (Normal) Comments: Microscopic was indicated and was performed. Nitrite, Urine Negative (Normal) Urobilinogen,Semi-Qn 0.2 mg/dL (Normal) Range: 0.0-1.9 Bilirubin Negative (Normal) Occult Blood Negative (Normal) Ketones Negative (Normal) Glucose Negative (Normal) Protein 1+ (Abnormal) WBC Esterase Negative (Normal) Appearance Clear (Normal) Urine-Color Yellow (Normal) pH 7.0 (Normal) Range: 5.0-7.5 Specific [place] 1.021 (Normal) Range: 1.005-1.030 93-Hgt-872517:54 Influenza A&B Viral Culture (00451) Influenza A&B Viral Culture positive A and Negative B (Normal) 7-Opk-055091:18 WRIST MIN 3 VIEWS Radiology See Note [...] Judd M.D.March 16, 2013 at 1:49:04 PM [id number] Signed GP/GP If you are the referring physician and would like to consul t with theradiologist who provided this interpretation, please contact Miguel Rai at [phone]. If this radiologist is unavailable, youwill be directed to another radiologist to assist. If you are a patient with a question regarding this report, pleasecontactyour referring physician directly. Professional Interpretation Provided By: [employer], Phone , th jeanette documents contain legally protected and confidential [...] destructionofthese documents. Dictated on 03/16/13 1349 by Rosemary Judd MDranscribed on 03/16/13 1515 by ITS IMPORTSign by Edmond Judd MD on 03/16/13 1516 Sign by: Edmond Judd MD 92-Ktz-598031:06 CBCD,SMEAR DIFF BAND 1 % (Normal) Range: [...] T PROT 7.6 g/dL (Normal) Range: 6.4-8.2 :06 LIPID CHOL 196 mg/dL (Normal) Comments: <200 [...] mg/dL VLDL 12 mg/dL (Normal) Range: 5-40 2-Wso-049024:07 CBC (Auto) (15011) Comments: PATIENT NOT FASTINGPERFORMED BY: [facility] Zgkkch3041 [facility] [id number] Hematocrit 43.5 % (Normal) Range: 36.0-50.0 Hemoglobin 15.1 g/dL (Normal) Range: 12.5-17.0 MCH 33.7 pg (Normal) Range: 27.0-34.0 MCHC 34.7 g/dL (Normal) Range: 32.0-36.0 MCV 97 fL (Normal) Range: 80-98 Platelets 189 {x10E3/uL} (Normal) Range: 140-415 RBC 4.49 {x10E6/uL} (Normal) Range: 4.10-5.60 RDW 12.9 % (Normal) Range: 11.7-15.0 WBC 4.5 {x10E3/uL} (Normal) Range: 4.0-10.5 7-Ssk-924511:07 Metabolic Panel, Comprehensive Comments: PATIENT NOT FASTINGClinical Information: ADD DRAW FEE 790706 ADD J0 7849 PERFORMED BY: [facility] Bqtapg7525 [facility] [id number] (12633) A/G Ratio 2.0 (Normal) Range: 1.1-2.5 Albumin, [...] 1.49 INDETERMINANT > OR = 1.50 SUGGEST AK Plan of Care Name Dates Details Instructions [...] disease without heart failure Planned Observations TSH (30024)Indication: Anxiety On: Request URINALYSIS, W/ MICRO (58295)Indication: Hypertension, benign On: : Request MICROALBUMIN: CREATININE RATIO (44808) AND (19341)Indication: Hypertension, benign On: : Request METABOLIC PANEL, COMPREHENSIVE (23994)Indication: Hypertension, benign On: : Request LIPOPROTEIN, BLD, BY NMR (33772)Indication: Hypertension, benign On: : Request CBC W/AUTO DIFF WBC (46515)Indication: Hypertension, benign On: :26 Request METABOLIC PANEL, COMPREHENSIVE (86558)Indication: Headache On: 7-Phg-357234:32 Request URINALYSIS, W/ MICRO (71507)Indication: Hypertension, benign On: :14 Request MICROALBUMIN: CREATININE RATIO (13641) AND (30759)Indication: Hypertension, benign On: 92-Lpq-246016:14 Request METABOLIC PANEL, COMPREHENSIVE (48656)Indication: Hypertension, benign On: 31-Zvg-052253:14 Request LIPID PANEL (21477)Indication: Hypertension, benign On: 04-Qbm-678386:14 Request CBC W/AUTO DIFF WBC (09305)Indication: Hypertension, benign On: 41-Fwi-948666:14 Request URINALYSIS, W/ MICRO (38503)Indication: Hypertension, benign On: 82-Rmh-448223:54 Request MICROALBUMIN: CREATININE RATIO (84600) AND (94514)Indication: Hypertension, benign On: :54 Request METABOLIC PANEL, COMPREHENSIVE (19827)Indication: Hypertension, benign On: :54 Request LIPID PANEL (51263)Indication: Hypertension, benign On: :54 Request CBC W/AUTO DIFF WBC (01181)Indication: Hypertension, benign On: :54 Request URINALYSIS (14305)Indication: Hematuria On: 28-Qbj-217439:43 Request URINALYSIS, W/ MICRO (14065)Indication: Hematuria On: 44-Jxd-151857:30 Request LIPID PANEL (72371)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 On: :32 Request URINALYSIS, W/ MICRO (11316)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 On: 47-Dij-550227:32 Request MICROALBUMIN: CREATININE RATIO (36609) AND (73930)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 On: :32 Request METABOLIC PANEL, COMPREHENSIVE (55938)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 On: :31 Request CBC W/AUTO DIFF WBC (91076)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 On: :31 Request PSA (PROSTATE SPECIFIC ANTIGEN) (V76.44)Indication: Encounter for screening for malignant neoplasm of prostate (Renamed from Screening for prostate cancer) On: 46-Dvm-558535:30 Request UPEP (85585)Indication: Urine protein increased On: 11-Yci-56731:55 Request MICROALBUMIN: CREATININE RATIO (33357) AND (44321)Indication: Urine protein increased On: :55 Request URINALYSIS, W/ MICRO (90303)Indication: Encounter for routine history and physical exam for male On: 7-Ckh-501689:09 Request METABOLIC PANEL, COMPREHENSIVE (30400)Indication: Encounter for routine history and physical exam for male On: 5-Kjm-347609:09 Request LIPID PANEL (21263)Indication: Encounter for routine history and physical exam for male On: 2-Ftc-992665:09 Request CBC with auto diff (86219)Indication: Encounter for routine history and physical exam for male On: 9-Fht-894703:08 Request PSA (PROSTATE SPECIFIC ANTIGEN) (V76.44)Indication: Encounter for routine history and physical exam for male On: 8-Yrz-975644:08 Request Rapid Flu (96516 x 2)Indication: Fever On: 25-Wxx-855772:53 Request AST (SGOT) (Aspart Amino Transferase) (28053)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 On: 70-Mzs-954232:58 Request Metabolic Panel, Basic (06781)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 On: :58 Request Lipid Panel (00261)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 On: :58 Request Comments: in six months (approximately) Lipid Panel (23740)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 On: 90-Blb-476933:15 Request METABOLIC PANEL, COMPREHENSIVE (56093)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 On: 56-Qkq-285338:14 Request CBC WITH MANUAL DIFF (55729)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 On: 10-Mew-852708:14 Request Rapid Strep Test, Office (54562)Indication: Pharyngitis, acute On: 23-Zdr-279083:54 Request METABOLIC PANEL, BASIC (47155)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 On: 6-Fhg-835886:30 Request CBC WITH MANUAL DIFF (69188)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 On: 95-Qqs-649984:03 Request METABOLIC PANEL, COMPREHENSIVE (71305)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 On: 25-Hvn-480257:03 Request LIPID PANEL (07402)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 On: 29-Mym-865855:[address] NECK SOFT TISSUE W CONTRAST On: 01-Sep-2018 Intent (35540)By: Graciela Pedraza DO, DO, Kathleen ULTRASOUND OF NECK LYMPHATICS On: 31-Aug-2018 Intent (22077)By: Chayo Monet Comments: STAT: Attention Left clavicle area ELECTROCARDIOGRAM, COMPLETE (ECG) On: 10-May-2018 Intent (34382)By: Graciela Pedraza DO Comments: nsr no acute chg Graciela Pedraza DO Radiology - Cervical SpineBy: On: 13-Apr-2018 Intent Chayo Monet Radiology - Thoracic SpineBy: On: 13-Apr-[address] SCAN OF HEAD OR BRAIN WITH AND On: 13-Apr-2018 Intent WITHOUT CONTRAST (04567)By: Chiki, Comments: R/O Subdural hematoma, -head injury and headache Chayo ATTENDED SLEEP STUDY (33555)By: On: 30-May-2017 Intent Graciela Pedraza DO, DO, Kathleen Echo CompleteBy: Graciela Pedraza DO On: 04-May-2017 Intent Graciela Pedraza DO ELECTROCARDIOGRAM, COMPLETE (ECG) On: 04-May-2017 Intent (50398)By: Graciela Pedraza DO Comments: nsr no acute [...] EYE EXAMINATION, ESTAB PATIENT On: 28-Aug-2012 Intent (16524)By: Merry Sanders CNP EKG (05901)By: CAMACHO Mendes On: 04-Apr-2008 Intent Spirometry (98919)By: Kapil QUINTERO, On: 11-Oct-2007 Intent Clemencia A Comments: good effort and curve mild airway obstruction Inhaler Demo (68869)By: Kapil DO, On: 11-Oct-2007 Intent Clemencia A Bio Z (62865)By: Jane Fischer MD On: 03-Oct-2006 Intent EKG (40451)By: Jane Fischer MD On: 03-Oct-2006 Intent Planned [...] Indication: Body aches Encounters Phone Encounter On: 01-Sep-2018 14:50 Encounter Diagnosis: [...] on the railing-lump on the back of mhke-ownhtsbrv-vdxewqwab headahce, never had migraines but feels like [...] the patient is following up for inc miguel angele All identified problems below and high blood [...] the patient is following up for inc miguel angele All identified problems below and high blood [...] of drinking. 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 Note for Hypertension: patient was off b/p meds for about months and then restarted tuesday, stop pills for BP few months ago, A positive in CAGEEncounter Diagnosis: Hypertension with LVH (402.90), Alcohol abuse, episodic drinking behavior (305.02) [facility] Historical Summary On: 03-Oct-2006 8:17 [facility] End: 03-Oct-2006 8:31 [facility]mer[facility]da Jeffery; aubrie guarantor
--- OUTSIDE RECORDS SUMMARY | 2018-12-03 02:29 | XMS RPT_ITS | Continuity of Care Document ---
:1970 Author Organization [facility] Address [facility] [address] [place] [address] Phone Care Team Providers Name Role Phone Graciela Pedraza DO Unavailable Dr. 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 Status: Inactive as of 02-Apr-2016 Procedures Procedure Dates Details KNee surgery at 16 yo Completed Date Value Details 31-Aug-2018 Head/Neck Soft Tissue Result: Comments: See Note; NOTES: [facility] Imaging Services [address] [place] [address] Head/Neck Soft Tissue MR#: [id number] Acct: [id number] Name: JAYDA JEFFERY Rep #: [id number] : 1970 M 48 From: Ashok Farnsworth MD PCP: Graciela Pedraza DO Status: REG CLI Study: Head/Neck Soft Tissue Date of Exam: 08/31/18 Exam# [id number] Ordering Dr: Chayo Monet GEOSPATIAL SYSTEMS INTEGRATOR-C STUDY: SOFT TISSUE NECK ULTRASOUND REASON FOR [...] , CC: ARANZA Monet; Graciela Pedraza DO Battalion Fire Chief: Signed 13-Apr-2018 Brain/Head without Contrast Result: Comments: See Note; NOTES: [facility] Imaging Services [address] [place] [address] Brain/Head without Contrast MR#: [id number] Acct: [id number] Name: JAYDA JEFFERY Rep #: [id number] : 1970 [facility] From: Edmond Judd MD PCP: Graciela Pedraza DO Status: REG CLI Study: Brain/Head without Contrast Date of Exam: 04/13/18 Exam# [id number] Ordering Dr: Chayo Monet P-C STUDY: CT [...] Edmond Judd MD at 13:22 EDT Tel [phone], Service support , CC: VIVIAN Monet; Graciela Pedraza DO Battalion Fire Chief: Signed 13-Apr-2018 Cerv Spine 4 or 5 Views Result: Comments: See Note; NOTES: [facility] Imaging Services [address] [place] [address] Cerv Spine 4 or 5 Views MR#: [id number] Acct: [id number] Name: JAYDA JEFFERY Rep #: [id number] : 1970 47 From: Frank Vivar MD PCP: Graciela Pedraza DO Status: REG CLI Study: Cerv Spine 4 or 5 Views Date of Exam: 04/13/18 Exam# [id number] Ordering Dr: Chayo Monet STUD Y: X-RAY [...] Fax CC: VIVIAN Monet; Graciela Pedraza DO Battalion Fire Chief: Signed 13-Apr-2018 Thoracic Spine 3 Views Result: Comments: See Note; NOTES: [facility] Imaging Services [address] [place] [address] Thoracic Spine 3 Views MR#: [id number] Acct: [id number] Name: JAYDA JEFFERY Rep #: [id number] : 1970 M 47 From: Frank Vivar MD PCP: Graciela Pedraza DO Status: REG CLI Study: Thoracic Spine 3 Views Date of Exam: 04/13/18 Exam# [id number] Ordering Dr: Chayo Monet STUDY: X-RAY - [...] , CC: VIVIAN Monet; Graciela Pedraza DO Battalion Fire Chief: Signed 13-May-2017 Echocardiogram Complete Result: Comments: See Note; NOTES: [facility] Cardiovascular Services [address] [place] [address] Echo Complete 05/13/17 1303 MR#: [id number] Acct: [id number] Name: JAYDA JEFFERY Rep #: [id number] : 1970 46 From: Leno Layne MD Attending Dr: Graciela Pedraza DO Status: REG CLI Ordering Dr: Graciela Pedraza DO Date: 05/13/17 Location: [facility] Sex: M C Admitted: [place] son For Study: MV Insufficiency Procedure This [...] Performed By: Irma Carrasco RDCS, RVT 05/13/17 1652 Date Leno Layne MD CC: Graciela Pedraza DO Date Dictated: 05/13/17 1303 Date Transcribed: 05/13/17 1652 Battalion Fire Chief: Signed 02-Apr-2016 ELECTROCARDIOGRAM, COMPLETE (ECG) (86511) Comments: nsr no acute chg Result: [MEASUREMENTS ANALYSIS] Date of Test: 04/02/2016 14:47:54; Heart Rate: 81; NM Interval: 126; QRS: 92; QT Interval: 360; Corrected QT Interval (QTc): 396; P Wave [place]: 30; QRS Wave [place]: 27; T Wave [place]: -1; Blood Pressure: 148/102 [ECG DIAGNOSTIC STATEMENTS] [...] Most Recent Primary Occupation Comments: workign for [employer]. Status: Active No Drug Use Status: Active Number of Child (age 0-17) Dependents Comments: 1 Status: Active Tobacco Use Comments: Uses chewing tobacco - Not often--quit 2005 Status: Active Vital Signs Date Test Result Details 41-Uny-08539:34 Temperature 97.2 f Comments: Method: Temporal Pulse [...] 0.00 cm Results Date Description Value Details 18-Sod-627863:19 C-REACTIVE PROTEIN (77368) Comments: PATIENT NOT FASTINGPERFORMED BY: [employer] Qnbybp0221 [facility] [id number] C-Reactive Protein, Quant 2.2 mg/L (Normal) Range: 0.0-4.9 69-Sis-474371:19 SED RATE ERYTHROCYTE (51513) Comments: PATIENT NOT FASTINGPERFORMED BY: [employer] [facility] [id number] Sedimentation Rate-Westergren 2 mm/h (Normal) Range: 0-15 64-Dqc-375633:19 METABOLIC PANEL, COMPREHENSIVE Comments: PATIENT NOT FASTINGPERFORMED BY: [employer] Bjeiry8125 [facility] [id number] (72936) ALT (SGPT) 17 [iU]/L (Normal) Range: 0-44 [...] 6-24 Glucose 88 mg/dL (Normal) Range: 65-99 26-Jkr-568849:19 CBC, PLATELETS & AUT DIFF Comments: PATIENT NOT FASTINGPERFORMED BY: [facility]CoM[facility]lands Hospital Medical CenterNxdtkh8650 [facility] [id number] ([id number]) Immature Grans (Abs) 0.0 {x10E3/uL} (Normal) Range: [...] 4.14-5.80 WBC 7.8 {x10E3/uL} (Normal) Range: 3.4-10.8 5-Nvs-686867:34 Comprehensive Metabolic Profil Comments: Order Date: 04/13/18Order Info: 0786-1 - [facility] [address] [place], [place], [id number] GAP 5 (Normal) Range: 5-15 CO2 31.0 [...] Comments: Please note revised GLUCOSE reference range rvsqvifph18/02/2018. 01-Epn-115423:42 Urinalysis, Office (94919) UA - LEUKOCYTE ESTERASE Negative (Normal) UA - NITRITE Negative (Normal) URINE UROBILINGN AMARIS TIMED Normal mg/dL (Normal) UA - PROTEIN Negative mg/dL (Normal) UA - PH 7.0 (Normal) UA - BLOOD Negative (Normal) UA - SPECIFIC GRAVITY 1.010 (Normal) UA - KETONES Negative mg/dL (Normal) UA - BILIRUBIN Negative (Normal) UA - GLUCOSE Negative (Normal) 20-Adg-562261:52 CBC W/Diff, Automated Comments: [facility] [address] [place], [address] Absolute Lymph 1.66 {X10_3/ul} (Normal) Range: 0.83-4.51 [...] 4.6-6.2 WBC 4.5 K/mm3 (Normal) Range: 4.4-11.0 09-Rlv-827304:52 Comprehensive Metabolic Profil Comments: [facility] [address], [place], [id number] GAP 6 (Normal) Range: 5-15 CO2 28.0 [...] 7-18 GLU 83 mg/dL (Normal) Range: 70-110 18-Ily-620820:52 Lipid Profile Comments: [facility] [address] [place], [place], [id number] VLDL 30 mg/dL (Normal) Range: 5-40 LDL [...] 200-240 mg/dL Borderline >240 mg/dL High Risk 20-Vmb-795907:52 Microalb:Creat Ratio,Random UR Comments: [facility] [address] [place] [place], [address] MALB:CREAT 8.0 {mg/g_CRE} (Normal) MICROALBUMIN,UR 20.2 mg/L (Normal) UR CREAT 252.00 mg/dL (Normal) 18-Ota-031056:52 PSA,Total - Annual Screen Comments: [facility] [address] [place], [address] PSA,TOT SCREEN 1.30 ng/mL (Normal) Range: 0.00-4.00 Comments: This test was performed using the TPSA assay method for theMyTinksAMKAI chemistry system. Values obtained with differentassay methods cannot be used interchangably.When changing PSA assays in the course of monitoring apatient, additional sequential testing should be carriedout to confirm baseline values. 56-Rpp-156226:52 Urinalysis, Complete Comments: How was Urine Obtained? [facility] [address] [place], [place], [address] MUCUS, URINE 0 SEEN {/hpf} (Normal) BACTERIA [...] (Normal) CLARITY Clear (Normal) COLOR Yellow (Normal) 66-Tpu-48693:18 CBC With Differential/Platelet Comments: PATIENT WAS FASTINGPERFORMED BY: [facility]CoM[facility] Medical CenterZdlbav4550 [facility] [id number] Information: [id number] Immature Grans (Abs) 0.0 {x10E3/uL} (Normal) Range: [...] (14) Comments: PATIENT WAS FASTINGPERFORMED BY: [facility] Yyidqh0213 [facility] [id number] ALT (SGPT) 21 [iU]/L (Normal) Range: 0-44 [...] With LDL/HDL Comments: PATIENT WAS FASTINGPERFORMED BY: [employer] [facility] [id number] Ratio LDL/HDL Ratio 1.9 {ratio_units} (Normal) Range: [...] Microscopic Examination Comments: PATIENT WAS FASTINGPERFORMED BY: [employer]70 [facility] [id number] Bacteria None seen (Normal) Mucus Threads Present (Normal) Epithelial Cells (non renal) 0-10 {/hpf} (Normal) Range: 0 - 10 RBC None seen {/hpf} (Normal) Range: 0 - 2 WBC 0-5 {/hpf} (Normal) Range: 0 - 5 :18 Prostate-Specific Ag, Serum Comments: PATIENT WAS FASTINGPERFORMED BY: [employer] [facility] [id number] Prostate Specific Ag, 1.5 ng/mL (Normal) Range: 0.0-4.0 Serum Comments: Kevin ECLIA methodology. .According to the [employer], Serum PSA shoulddecrease and remain [...] Urinalysis, Complete Comments: PATIENT WAS FASTINGPERFORMED BY: [facility]CoM[facility] Medical CenterXqxfxe3336 [facility] [id number] Microscopic Examination See below: (Normal) Comments: Microscopic was indicated and was performed. Nitrite, Urine Negative (Normal) Urobilinogen,Semi-Qn 0.2 mg/dL (Normal) Range: 0.0-1.9 Bilirubin Negative (Normal) Occult Blood Negative (Normal) Ketones Negative (Normal) Glucose Negative (Normal) Protein 1+ (Abnormal) WBC Esterase Negative (Normal) Appearance Clear (Normal) Urine-Color Yellow (Normal) pH 7.0 (Normal) Range: 5.0-7.5 Specific [place] 1.021 (Normal) Range: 1.005-1.030 31-Vya-834572:54 Influenza A&B Viral Culture (99647) Influenza A&B Viral Culture positive A and Negative B (Normal) 5-Ybb-788110:18 WRIST MIN 3 VIEWS Radiology See Note [...] Judd M.D.March 16, 2013 at 1:49:04 PM [id number] Signed GP/GP If you are the referring physician and would like to consul t with theradiologist who provided this interpretation, please contact Miguel Rai at [phone]. If this radiologist is unavailable, youwill be directed to another radiologist to assist. If you are a patient with a question regarding this report, pleasecontactyour referring physician directly. Professional Interpretation Provided By: [place], Phone , th jeanette documents contain legally [...] IMPORTSign by Edmond Judd MD on 03/16/13 151 Sign by: Edmond Judd MD 23-Vkc-838637:06 CBCD,SMEAR DIFF BAND 1 % (Normal) Range: [...] 47-70 WBC 6.6 K/mm3 (Normal) Range: 4.4-11.0 55-Mmt-448893:06 COMP METABOLIC A/G 1.4 {RATIO} (Normal) Range: [...] T PROT 7.6 g/dL (Normal) Range: 6.4-8.2 52-Wii-555414:06 LIPID CHOL 196 mg/dL (Normal) Comments: <200 [...] mg/dL VLDL 12 mg/dL (Normal) Range: 5-40 :07 CBC (Auto) (00489) Comments: PATIENT NOT FASTINGPERFORMED BY: [employer] International[employer] [id number] [facility] [id number] Hematocrit 43.5 % (Normal) Range: 36.0-50.0 Hemoglobin 15.1 g/dL (Normal) Range: 12.5-17.0 MCH 33.7 pg (Normal) Range: 27.0-34.0 MCHC 34.7 g/dL (Normal) Range: 32.0-36.0 MCV 97 fL (Normal) Range: 80-98 Platelets 189 {x10E3/uL} (Normal) Range: 140-415 RBC 4.49 {x10E6/uL} (Normal) Range: 4.10-5.60 RDW 12.9 % (Normal) Range: 11.7-15.0 WBC 4.5 {x10E3/uL} (Normal) Range: 4.0-10.5 7-Flf-304974:07 Metabolic Panel, Comprehensive Comments: PATIENT NOT FASTINGClinical Information: ADD DRAW FEE 241976 ADD J0 2452 PERFORMED BY: [employer] LabCoMeadowlands Hospital Medical CenterNvayfk6058 [facility] [id number] (86329) A/G Ratio 2.0 (Normal) Range: 1.1-2.5 Albumin, [...] 1.49 INDETERMINANT > OR = 1.50 SUGGEST [facility] Plan of Care Name Dates Details Instructions [...] disease without heart failure Planned Observations TSH (15644)Indication: Anxiety On: :26 Request URINALYSIS, W/ MICRO (88805)Indication: Hypertension, benign On: :26 Request MICROALBUMIN: CREATININE RATIO (90473) AND (65267)Indication: Hypertension, benign On: :26 Request METABOLIC PANEL, COMPREHENSIVE (46710)Indication: Hypertension, benign On: :26 Request LIPOPROTEIN, BLD, BY NMR (17578)Indication: Hypertension, benign On: :26 Request CBC W/AUTO DIFF WBC (83095)Indication: Hypertension, benign On: :26 Request METABOLIC PANEL, COMPREHENSIVE (37638)Indication: Headache On: 4-Upg-302448:32 Request URINALYSIS, W/ MICRO (92056)Indication: Hypertension, benign On: 64-Wyk-369247:14 Request MICROALBUMIN: CREATININE RATIO (29624) AND (55572)Indication: Hypertension, benign On: 45-Urj-577816:14 Request METABOLIC PANEL, COMPREHENSIVE (43974)Indication: Hypertension, benign On: 32-Zgu-624819:14 Request LIPID PANEL (47739)Indication: Hypertension, benign On: 15-Dbk-983918:14 Request CBC W/AUTO DIFF WBC (19838)Indication: Hypertension, benign On: 59-Vem-723115:14 Request URINALYSIS, W/ MICRO (28855)Indication: Hypertension, benign On: :54 Request MICROALBUMIN: CREATININE RATIO (80335) AND (68914)Indication: Hypertension, benign On: :54 Request METABOLIC PANEL, COMPREHENSIVE (43421)Indication: Hypertension, benign On: :54 Request LIPID PANEL (20760)Indication: Hypertension, benign On: :54 Request CBC W/AUTO DIFF WBC (36470)Indication: Hypertension, benign On: :54 Request URINALYSIS (39798)Indication: Hematuria On: :43 Request URINALYSIS, W/ MICRO (81165)Indication: Hematuria On: 86-Vxq-701371:30 Request LIPID PANEL (15591)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 On: :32 Request URINALYSIS, W/ MICRO (67905)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 On: :32 Request MICROALBUMIN: CREATININE RATIO (72018) AND (34752)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 On: :32 Request METABOLIC PANEL, COMPREHENSIVE (64264)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 On: :31 Request CBC W/AUTO DIFF WBC (53607)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 On: 28-Wnz-842006:31 Request PSA (PROSTATE SPECIFIC ANTIGEN) (V76.44)Indication: Encounter for screening for malignant neoplasm of prostate (Renamed from Screening for prostate cancer) On: :30 Request UPEP (92498)Indication: Urine protein increased On: :55 Request MICROALBUMIN: CREATININE RATIO (19937) AND (75693)Indication: Urine protein increased On: :55 Request URINALYSIS, W/ MICRO (19366)Indication: Encounter for routine history and physical exam for male On: 5-Qni-671428:09 Request METABOLIC PANEL, COMPREHENSIVE (50988)Indication: Encounter for routine history and physical exam for male On: 7-Abj-041648:09 Request LIPID PANEL (19645)Indication: Encounter for routine history and physical exam for male On: 4-Sfk-992880:09 Request CBC with auto diff (68102)Indication: Encounter for routine history and physical exam for male On: 8-Eee-791371:08 Request PSA (PROSTATE SPECIFIC ANTIGEN) (V76.44)Indication: Encounter for routine history and physical exam for male On: 6-Iad-051823:08 Request Rapid Flu (14728 x 2)Indication: Fever On: 19-Jvs-479386:53 Request AST (SGOT) (Aspart Amino Transferase) (83407)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 On: 47-Zfz-553199:58 Request Metabolic Panel, Basic (09629)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 On: 96-Brk-869371:58 Request Lipid Panel (61836)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 On: 42-Wxm-225229:58 Request Comments: in six months (approximately) Lipid Panel (28032)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 On: 45-Wmm-790509:15 Request METABOLIC PANEL, COMPREHENSIVE (29236)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 On: 63-Ubs-422352:14 Request CBC WITH MANUAL DIFF (47377)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 On: 35-Eji-834818:14 Request Rapid Strep Test, Office (95436)Indication: Pharyngitis, acute On: 46-Qzp-058890:54 Request METABOLIC PANEL, BASIC (88776)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 On: 7-Czc-955123:30 Request CBC WITH MANUAL DIFF (63014)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 On: 60-Mco-654773:03 Request METABOLIC PANEL, COMPREHENSIVE (01495)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 On: 52-Ylh-528382:03 Request LIPID PANEL (63041)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 On: 62-Hpn-320309:[address] NECK SOFT TISSUE W CONTRAST On: 01-Sep-2018 Intent (72703)By: Graciela Pedraza DO, DO, Kathleen ULTRASOUND OF NECK LYMPHATICS On: 31-Aug-2018 Intent (29495)By: Chayo Monet Comments: STAT: Attention Left clavicle area ELECTROCARDIOGRAM, COMPLETE (ECG) On: 10-May-2018 Intent (21076)By: Graciela Pedraza DO Comments: nsr no acute chg Graciela Pedraza DO Radiology - Cervical SpineBy: On: 13-Apr-2018 Intent Chayo Monet Radiology - Thoracic SpineBy: On: 13-Apr-[address] SCAN OF HEAD OR BRAIN WITH AND On: 13-Apr-2018 Intent WITHOUT CONTRAST (80918)By: Chiki Comments: R/O Subdural hematoma, -head injury and headache Chayo ATTENDED SLEEP STUDY (42646)By: On: 30-May-2017 Intent Graciela Pedraza DO, DO, Kathleen Echo CompleteBy: Graciela Pedraza DO On: 04-May-2017 Intent Graciela Pedraza DO ELECTROCARDIOGRAM, COMPLETE (ECG) On: 04-May-2017 Intent (77377)By: Graciela Pedraza DO Comments: nsr no acute [...] EYE EXAMINATION, ESTAB PATIENT On: 28-Aug-2012 Intent (32047)By: Merry Sanders CNP EKG (86420)By: CAMACHO Mendes On: 04-Apr-2008 Intent Spirometry (61080)By: Kapil QUINTERO, On: 11-Oct-2007 Intent Clemencia A Comments: good effort and curve mild airway obstruction Inhaler Demo (05086)By: Kapil QUINTERO, On: 11-Oct-2007 Intent Clemencia A Bio Z (45951)By: Jane Fischer MD On: 03-Oct-2006 Intent EKG (34785)By: Jane Fischer MD On: 03-Oct-2006 Intent Planned [...] : Patient Instructions Indication: Body aches Encounters Annotation/Addendum On: 08-Sep-2018 14:46 Encounter Diagnosis: Neck [...] on the railing-lump on the back of ffou-cpdtzshgk-rhxylyzad headahce, never had migraines but feels like [...] Note for Cough: 102-- mon and tue of last weekEncounter Diagnosis: Wheezing (786.07), Bronchitis,Acute [...] night of beer.) ,depression in the past ,dog sitter awakening ,episodes of spontaneous crying ,ex cessive [...] (parents). blood pressure range : (nurse @ [facility] End: 03-Oct-2006 16:09 d tuesday and it was 156/109). Note for Hypertension: patient was off b/p meds for about months and then restarted tuesday, stop pills for BP few months ago, A positive in CAGEEncounter Diagnosis: Hypertension with LVH (402.90), Alcohol abuse, episodic drinking behavior (305.02) [facility] Historical Summary On: 03-Oct-2006 8:17 [facility] End: 03-Oct-2006 8:31 [facility] HospitalJay[facility] Jeffery; aubrie guarantor
--- OUTSIDE RECORDS SUMMARY | 2018-12-03 02:30 | XMS RPT_ITS | Continuity of Care Document ---
:1970 Author Organization [facility] Address [facility] [facility] [address] [place] [address] Phone Care Team Providers Name Role Phone Graciela Pedraza DO Unavailable Dr. Juan Terry Unavailable Jane Fischer MD Unavailable Terry Tello Unavailable Unavailable uJde Mejia Unavailable Unavailable JEANNE Jimenez Unavailable Unavailable Chayo Monet Unavailable Unavailable Unavailable [...] AQ, 55MCG/ACT (Nasal Aerosol Solution) 2 (two) [place](s) Daily for 0 days Quantity: 1 {Aerosol_Soln} [...] 02-Apr-2016 Other chest pain (R07.89, 786.59) Comments: [facility]--had stress 8- 08 negative Status: Resolved [...] Status: Inactive as of 18-Feb-2009 Wrist pain (229.43) Comments: Ulner pain ? 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 Status: Inactive as of 02-Apr-2016 Procedures Procedure Dates Details KNee surgery at 16 yo Completed Date Value Details 13-Apr-2018 Brain/Head without Contrast Result: Comments: See Note; NOTES: [facility] Imaging Services [address] [place] [address] Brain/Head without Contrast MR#: [id number] Acct: [id number] Name: JAYDA JEFFERY Rep #: [id number] : 1970 M 47 From: Edmond Judd MD PCP: Graciela Pedraza DO Status: REG CLI Study: Brain/Head without Contrast Date of Exam: 04/13/18 Exam# [id number] Ordering Dr: Chayo Monet P-C STUDY: CT [...] Edmond Judd MD at 13:22 EDT Tel [phone], Service support , CC: VIVIAN Monet; Graciela Pedraza DO Media Production Operator: Signed 13-Apr-2018 Cerv Spine 4 or 5 Views Result: Comments: See Note; NOTES: [facility] Imaging Services [address] [place] [address] Cerv Spine 4 or 5 Views MR#: [id number] Acct: [id number] Name: JAYDA JEFFERY Rep #: [id number] : 1970 M 47 From: Frank Vivar MD PCP: Graciela Pedraza DO Status: REG CLI Study: Cerv Spine 4 or 5 Views Date of Exam: 04/13/18 Exam# [id number] Ordering Dr: Chayo Monet STUD Y: X-RAY [...] Fax CC: VIVIAN Monet; Graciela Pedraza DO Media Production Operator: Signed 13-Apr-2018 Thoracic Spine 3 Views Result: Comments: See Note; NOTES: [facility] Imaging Services [address] [place] [address] Thoracic Spine 3 Views MR#: [id number] Acct: [id number] Name: JAYDA JEFFERY Rep #: [id number] : 1970 M 47 From: Frank Vivar MD PCP: Graciela Pedraza DO Status: REG CLI Study: Thoracic Spine 3 Views Date of Exam: 04/13/18 Exam# [id number] Ordering Dr: Chayo Monet STUDY: X-RAY - [...] , CC: VIVIAN Monet; Graciela Pedraza DO Media Production Operator: Signed 13-May-2017 Echocardiogram Complete Result: Comments: See Note; NOTES: [facility] Cardiovascular Services [address] [place] [address] Echo Complete 05/13/17 1303 MR#: [id number] Acct: [id number] Name: JAYDA JEFFERY Rep #: [id number] : 1970 46 From: Leno Layne MD Attending Dr: Graciela Pedraza DO Status: REG CLI Ordering Dr: Graciela Pedraza DO Date: 05/13/17 Location: [facility] Sex: M C Admitted: Kemmerer son For Study: MV Insufficiency Procedure This [...] Dictated: 05/13/17 1303 Date Transcribed: 05/13/17 1652 Media Production Operator: Signed 02-Apr-2016 ELECTROCARDIOGRAM, COMPLETE (ECG) (51596) Comments: nsr no acute chg Result: [MEASUREMENTS ANALYSIS] Date of Test: 04/02/2016 14:47:54; Heart Rate: 81; WA Interval: 126; QRS: 92; QT Interval: 360; Corrected QT Interval (QTc): 396; P Wave Imbler: 30; QRS Wave Imbler: 27; T Wave Imbler: -1; Blood Pressure: 148/102 [ECG DIAGNOSTIC STATEMENTS] [...] Most Recent Primary Occupation Comments: workign for [employer]. Status: Active No Drug Use Status: Active Number of Child (age 0-17) Dependents Comments: 1 Status: Active Tobacco Use Comments: Uses chewing tobacco - Not often--quit 2005 Status: Active Vital Signs Date Test Result Details 80-Dnv-29976:34 Temperature 97.2 f Comments: Method: Temporal Pulse [...] 0.00 cm Results Date Description Value Details 8-Ovh-044103:34 Comprehensive Metabolic Profil Comments: Order Date: 04/13/18Order Info: 0786-1 - [facility] [address] [place] [address], [address] GAP 5 (Normal) Range: 5-15 CO2 31.0 [...] Comments: Please note revised GLUCOSE reference range irjfgqmdn37/02/2018. 06-Lfm-898138:42 Urinalysis, Office (28960) UA - LEUKOCYTE ESTERASE Negative (Normal) UA - NITRITE Negative (Normal) URINE UROBILINGN AMARIS TIMED Normal mg/dL (Normal) UA - PROTEIN Negative mg/dL (Normal) UA - PH 7.0 (Normal) UA - BLOOD Negative (Normal) UA - SPECIFIC GRAVITY 1.010 (Normal) UA - KETONES Negative mg/dL (Normal) UA - BILIRUBIN Negative (Normal) UA - GLUCOSE Negative (Normal) :52 CBC W/Diff, Automated Comments: [facility] [address] [place], [place], [id number] Absolute Lymph 1.66 {X10_3/ul} (Normal) Range: 0.83-4.51 [...] 4.6-6.2 WBC 4.5 K/mm3 (Normal) Range: 4.4-11.0 02-Mvq-323596:52 Comprehensive Metabolic Profil Comments: [facility] [address] [place], [place], [id number] GAP 6 (Normal) Range: 5-15 CO2 28.0 [...] 7-18 GLU 83 mg/dL (Normal) Range: 70-110 10-Jgp-088152:52 Lipid Profile Comments: [facility] [address] [place], [address] VLDL 30 mg/dL (Normal) Range: 5-40 LDL [...] 200-240 mg/dL Borderline >240 mg/dL High Risk 91-Yug-553743:52 Microalb:Creat Ratio,Random UR Comments: [facility] [address] [place], [address] MALB:CREAT 8.0 {mg/g_CRE} (Normal) MICROALBUMIN,UR 20.2 mg/L (Normal) UR CREAT 252.00 mg/dL (Normal) 50-Ixd-304122:52 PSA,Total - Annual Screen Comments: [facility] [address] [place], [address] PSA,TOT SCREEN 1.30 ng/mL (Normal) Range: 0.00-4.00 Comments: This test was performed using the TPSA assay method for the[employer] chemistry system. Values obtained with differentassay methods cannot be used interchangably.When changing PSA assays in the course of monitoring apatient, additional sequential testing should be carriedout to confirm baseline values. 71-Fqm-531117:52 Urinalysis, Complete Comments: How was Urine Obtained? [facility] [address] [place], [place], [address] MUCUS, URINE 0 SEEN {/hpf} (Normal) BACTERIA [...] (Normal) CLARITY Clear (Normal) COLOR Yellow (Normal) 87-Ujd-47345:18 CBC With Differential/Platelet Comments: PATIENT WAS FASTINGPERFORMED BY: [facility]Tgmirb4453 [facility] [id number] Information: [id number] Immature Grans (Abs) 0.0 {x10E3/uL} (Normal) Range: [...] 4.14-5.80 WBC 5.0 {x10E3/uL} (Normal) Range: 3.4-10.8 44-Ujl-90405:18 Comp. Metabolic Panel (14) Comments: PATIENT WAS FASTINGPERFORMED BY: [facility] SussexBdmzcc8007 [facility] [id number] ALT (SGPT) 21 [iU]/L (Normal) Range: 0-44 [...] With LDL/HDL Comments: PATIENT WAS FASTINGPERFORMED BY: [facility] [id number] Ratio LDL/HDL Ratio 1.9 {ratio_units} (Normal) Range: [...] Microscopic Examination Comments: PATIENT WAS FASTINGPERFORMED BY: [facility] [id number] Bacteria None seen (Normal) Mucus Threads Present (Normal) Epithelial Cells (non renal) 0-10 {/hpf} (Normal) Range: 0 - 10 RBC None seen {/hpf} (Normal) Range: 0 - 2 WBC 0-5 {/hpf} (Normal) Range: 0 - 5 :18 Prostate-Specific Ag, Serum Comments: PATIENT WAS FASTINGPERFORMED BY: [facility] [id number] Prostate Specific Ag, 1.5 ng/mL (Normal) Range: 0.0-4.0 Serum Comments: Kevin ECLIA methodology. .According to the [place] [employer], Serum PSA shoulddecrease and remain [...] Urinalysis, Complete Comments: PATIENT WAS FASTINGPERFORMED BY: [facility] SussexLqxmun1547 [facility] [id number] Microscopic Examination See below: (Normal) Comments: Microscopic was indicated and was performed. Nitrite, Urine Negative (Normal) Urobilinogen,Semi-Qn 0.2 mg/dL (Normal) Range: 0.0-1.9 Bilirubin Negative (Normal) Occult Blood Negative (Normal) Ketones Negative (Normal) Glucose Negative (Normal) Protein 1+ (Abnormal) WBC Esterase Negative (Normal) Appearance Clear (Normal) Urine-Color Yellow (Normal) pH 7.0 (Normal) Range: 5.0-7.5 Specific [place] 1.021 (Normal) Range: 1.005-1.030 51-Ybu-683241:54 Influenza A&B Viral Culture (73638) Influenza A&B Viral Culture positive A and Negative B (Normal) 1-Nmw-677480:18 WRIST MIN 3 VIEWS Radiology See Note [...] Judd M.D.March 16, 2013 at 1:49:04 PM [id number] Signed GP/GP If you are the referring physician and would like to consul t with theradiologist who provided this interpretation, please contact Miguel Rai at [phone]. If this radiologist is unavailable, youwill be directed to another radiologist to assist. If you are a patient with a question regarding this report, pleasecontactyour referring physician directly. Professional Interpretation Provided By: [employer], Phone , th jeanette documents contain legally [...] 03/16/13 151 Sign by: Edmond Judd MD 11-Sgv-545073:06 CBCD,SMEAR DIFF BAND 1 % (Normal) Range: [...] mg/dL (Normal) Range: 5-40 :07 CBC (Auto) (05278) Comments: PATIENT NOT FASTINGPERFORMED BY: [facility] SussexBeweqi8640 [facility] [id number] Hematocrit 43.5 % (Normal) Range: 36.0-50.0 Hemoglobin 15.1 g/dL (Normal) Range: 12.5-17.0 MCH 33.7 pg (Normal) Range: 27.0-34.0 MCHC 34.7 g/dL (Normal) Range: 32.0-36.0 MCV 97 fL (Normal) Range: 80-98 Platelets 189 {x10E3/uL} (Normal) Range: 140-415 RBC 4.49 {x10E6/uL} (Normal) Range: 4.10-5.60 RDW 12.9 % (Normal) Range: 11.7-15.0 WBC 4.5 {x10E3/uL} (Normal) Range: 4.0-10.5 :07 Metabolic Panel, Comprehensive Comments: PATIENT NOT FASTINGClinical Information: ADD DRAW FEE [id number] ADD J0 6534 PERFORMED BY: [facility] SussexXoxbst7788 [facility] [id number] (32341) A/G Ratio 2.0 (Normal) Range: 1.1-2.5 Albumin, [...] (Normal) Comments: Precautions*: NOT APPLICABLE Range: 24.6-36.6 08-Pih-597845:40 TROPONIN-I < 0.04 ng/mL (Normal) Comments: Precautions*: NOT APPLICABLEINDICATE CK '1', '2', '3', OR 'R' FOR RANDOM: 1 Comments: TROPONIN-I EXPECTED VALUES < 0.50 NEGATIVE 0.50 - 1.49 INDETERMINANT > OR = 1.50 SUGGEST SC Plan of Care Name Dates Details Instructions [...] heart disease without heart failure Planned Observations C-REACTIVE PROTEIN (85958)Indication: Neck mass On: :47 Request SED RATE ERYTHROCYTE (18472)Indication: Neck mass On: :47 Request METABOLIC PANEL, COMPREHENSIVE (98186)Indication: Neck mass On: :47 Request CBC, PLATELETS & AUT DIFF (07147)Indication: Neck mass On: :47 Request TSH (06943)Indication: Anxiety On: 27-Rzp-850274:26 Request URINALYSIS, W/ MICRO (82913)Indication: Hypertension, benign On: 00-Qbi-294179:26 Request MICROALBUMIN: CREATININE RATIO (49605) AND (33679)Indication: Hypertension, benign On: 19-Xqv-316665:26 Request METABOLIC PANEL, COMPREHENSIVE (39313)Indication: Hypertension, benign On: :26 Request LIPOPROTEIN, BLD, BY NMR (08629)Indication: Hypertension, benign On: : Request CBC W/AUTO DIFF WBC (22343)Indication: Hypertension, benign On: :26 Request METABOLIC PANEL, COMPREHENSIVE (27963)Indication: Headache On: :32 Request URINALYSIS, W/ MICRO (00265)Indication: Hypertension, benign On: :14 Request MICROALBUMIN: CREATININE RATIO (99337) AND (59497)Indication: Hypertension, benign On: :14 Request METABOLIC PANEL, COMPREHENSIVE (98087)Indication: Hypertension, benign On: :14 Request LIPID PANEL (87412)Indication: Hypertension, benign On: :14 Request CBC W/AUTO DIFF WBC (78973)Indication: Hypertension, benign On: :14 Request URINALYSIS, W/ MICRO (53797)Indication: Hypertension, benign On: 15-Arl-341057:54 Request MICROALBUMIN: CREATININE RATIO (01976) AND (80625)Indication: Hypertension, benign On: 28-Oam-612637:54 Request METABOLIC PANEL, COMPREHENSIVE (84347)Indication: Hypertension, benign On: 52-Cuo-575448:54 Request LIPID PANEL (76117)Indication: Hypertension, benign On: :54 Request CBC W/AUTO DIFF WBC (34620)Indication: Hypertension, benign On: :54 Request URINALYSIS (39410)Indication: Hematuria On: 24-Umm-979203:43 Request URINALYSIS, W/ MICRO (04095)Indication: Hematuria On: 97-Vyg-695773:30 Request LIPID PANEL (32587)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 On: :32 Request URINALYSIS, W/ MICRO (59039)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 On: :32 Request MICROALBUMIN: CREATININE RATIO (60359) AND (25770)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 On: :32 Request METABOLIC PANEL, COMPREHENSIVE (24481)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 On: :31 Request CBC W/AUTO DIFF WBC (12911)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 On: :31 Request PSA (PROSTATE SPECIFIC ANTIGEN) (V76.44)Indication: Encounter for screening for malignant neoplasm of prostate (Renamed from Screening for prostate cancer) On: :30 Request UPEP (89073)Indication: Urine protein increased On: 15-Ypj-10897:55 Request MICROALBUMIN: CREATININE RATIO (10976) AND (47268)Indication: Urine protein increased On: :55 Request URINALYSIS, W/ MICRO (28086)Indication: Encounter for routine history and physical exam for male On: 7-Ool-889476:09 Request METABOLIC PANEL, COMPREHENSIVE (18907)Indication: Encounter for routine history and physical exam for male On: 3-Eco-661019:09 Request LIPID PANEL (74955)Indication: Encounter for routine history and physical exam for male On: 2-Mad-922095:09 Request CBC with auto diff (66534)Indication: Encounter for routine history and physical exam for male On: 8-Ows-687042:08 Request PSA (PROSTATE SPECIFIC ANTIGEN) (V76.44)Indication: Encounter for routine history and physical exam for male On: 1-Ejy-260271:08 Request Rapid Flu (95750 x 2)Indication: Fever On: 65-Tun-835687:53 Request AST (SGOT) (Aspart Amino Transferase) (58302)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 On: :58 Request Metabolic Panel, Basic (47359)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 On: :58 Request Lipid Panel (92267)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 On: :58 Request Comments: in six months (approximately) Lipid Panel (61889)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 On: 57-Cll-706440:15 Request METABOLIC PANEL, COMPREHENSIVE (17481)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 On: 60-Zid-893310:14 Request CBC WITH MANUAL DIFF (87820)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 On: 19-Qdg-367163:14 Request Rapid Strep Test, Office (33881)Indication: Pharyngitis, acute On: 81-Xpy-248695:54 Request METABOLIC PANEL, BASIC (31122)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 On: 8-Tha-071860:30 Request CBC WITH MANUAL DIFF (04437)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 On: :03 Request METABOLIC PANEL, COMPREHENSIVE (53646)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 On: 48-Lcx-319968:03 Request LIPID PANEL (91145)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 On: :03 Request Planned Procedures ULTRASOUND OF NECK LYMPHATICS On: 31-Aug-2018 Intent (55741)By: Chayo Monet Comments: STAT: Attention Left clavicle area ELECTROCARDIOGRAM, COMPLETE (ECG) On: 10-May-2018 Intent (83070)By: Graciela Pedraza DO Comments: nsr no acute chg Graciela Pedraza DO Radiology - Cervical SpineBy: On: 13-Apr-2018 Intent Chayo Monet Radiology - Thoracic SpineBy: On: 13-Apr-[address] SCAN OF HEAD OR BRAIN WITH AND On: 13-Apr-2018 Intent WITHOUT CONTRAST (38907)By: Chiki Comments: R/O Subdural hematoma, -head injury and headache Chayo ATTENDED SLEEP STUDY (90089)By: On: 30-May-2017 Intent Graciela Pedraza DO, DO, Kathleen Echo CompleteBy: Graciela Pedraza DO On: 04-May-2017 Intent Graciela Pedraza DO ELECTROCARDIOGRAM, COMPLETE (ECG) On: 04-May-2017 Intent (20947)By: Graciela Pedraza DO Comments: nsr no acute [...] EYE EXAMINATION, ESTAB PATIENT On: 28-Aug-2012 Intent (71760)By: Merry Sandesr CNP EKG (85932)By: CAMACHO Mendes On: 04-Apr-2008 Intent Spirometry (31073)By: Kapil QUINTERO, On: 11-Oct-2007 Intent Clemencia A Comments: good effort and curve mild airway obstruction Inhaler Demo (71789)By: Kapil QUINTERO, On: 11-Oct-2007 Intent Clemencia A Bio Z (84334)By: Jane Fischer MD On: 03-Oct-2006 Intent EKG (09417)By: Jane Fischer MD On: 03-Oct-2006 Intent Planned [...] Indication: Body aches Encounters Office Visit On: 31-Aug-2018 9:33 Encounter Reason: [...] on the railing-lump on the back of wipj-gtoyxbxvo-huiskykuq headahce, never had migraines but feels like [...] Note for Cough: 102-- mon and e tue of last weekEncounter Diagnosis: Wheezing (786.07), [...] of drinking. 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
--- OUTSIDE RECORDS SUMMARY | 2018-12-03 02:30 | XMS RPT_ITS | Continuity of Care Document ---
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 Status: Inactive as of 02-Apr-2016 Procedures Procedure Dates Details KNee surgery at 16 yo Completed Date Value Details 31-Aug-2018 Head/Neck Soft Tissue Result: Comments: See Note; NOTES: [facility] Imaging Services [address] [place] [place] [address] Head/Neck Soft Tissue MR#: [id number] Acct: [id number] Name: JAYDA JEFFERY Rep #: [id number] : 1970 48 From: Ashok Farnsworth MD PCP: Graciela Pedraza DO Status: REG CLI Study: Head/Neck Soft Tissue Date of Exam: 08/31/18 Exam# [id number] Ordering Dr: Chayo Monet COMPLIANCE DIRECTOR-C STUDY: SOFT TISSUE NECK ULTRASOUND REASON FOR [...] , CC: ARANZA Monet; Graciela Pedraza DO Vice President And Portfolio Manager: Signed 13-Apr-2018 Brain/Head without Contrast Result: Comments: See Note; NOTES: [facility] Imaging Services [address] [place] [address] Brain/Head without Contrast MR#: [id number] Acct: [id number] Name: JAYDA JEFFERY Rep #: [id number] : 1970 M 47 From: Edmond Judd MD PCP: Graciela Pedraza DO Status: REG CLI Study: Brain/Head without Contrast Date of Exam: 04/13/18 Exam# [id number] Ordering Dr: Chayo Monet P-C STUDY: CT [...] Edmond Judd MD at 13:22 EDT Tel [phone], Service support , CC: VIVIAN Monet; Graciela Pedraza DO Vice President And Portfolio Manager: Signed 13-Apr-2018 Cerv Spine 4 or 5 Views Result: Comments: See Note; NOTES: [facility] Imaging Services [address] [place] [address] Cerv Spine 4 or 5 Views MR#: [id number] Acct: [id number] Name: JAYDA JEFFERY Rep #: [id number] : 1970 M 47 From: Frank Vivar MD PCP: Graciela Pedraza DO Status: REG CLI Study: Cerv Spine 4 or 5 Views Date of Exam: 04/13/18 Exam# [id number] Ordering Dr: Chayo Monet STUD Y: X-RAY [...] Fax CC: VIVIAN Monet; Graciela Pedraza DO Vice President And Portfolio Manager: Signed 13-Apr-2018 Thoracic Spine 3 Views Result: Comments: See Note; NOTES: [facility] Imaging Services [address] [place] [address] Thoracic Spine 3 Views MR#: [id number] Acct: [id number] Name: JAYDA JEFFERY Rep #: [id number] : 1970 M 47 From: Frank Vivar MD PCP: Graciela Pedraza DO Status: REG CLI Study: Thoracic Spine 3 Views Date of Exam: 04/13/18 Exam# [id number] Ordering Dr: Chayo Monet STUDY: X-RAY - [...] , CC: VIVIAN Monet; Graciela Pedraza DO Vice President And Portfolio Manager: Signed 13-May-2017 Echocardiogram Complete Result: Comments: See Note; NOTES: [facility] Cardiovascular Services [address] [place] [address] Echo Complete 05/13/17 1303 MR#: [id number] Acct: [id number] Name: JAYDA JEFFERY Rep #: [id number] : 1970 46 From: Leno Layne MD [...] CC: Graciela Pedraza DO Date Dictated: 05/13/17 1302 Date Transcribed: 05/13/17 9652 Vice President And Portfolio Manager: Signed 02-Apr-2016 ELECTROCARDIOGRAM, COMPLETE (ECG) (97259) Comments: nsr no acute chg Result: [MEASUREMENTS ANALYSIS] Date of Test: 04/02/2016 14:47:54; Heart Rate: 81; AK Interval: 126; QRS: 92; QT Interval: 360; Corrected QT Interval (QTc): 396; P Wave [place]: 30; QRS [place]: 27; T [place]: -1; Blood Pressure: 148/102 [ECG DIAGNOSTIC STATEMENTS] [...] Most Recent Primary Occupation Comments: workign for [employer]. Status: Active No Drug Use Status: [...] 0.00 cm Results Date Description Value Details 19-Sil-827812:19 C-REACTIVE PROTEIN (04354) Comments: PATIENT NOT FASTINGPERFORMED BY: [employer] [facility] [id number] C-Reactive Protein, Quant 2.2 mg/L (Normal) Range: 0.0-4.9 12-Shh-660006:19 SED RATE ERYTHROCYTE (43009) Comments: PATIENT NOT FASTINGPERFORMED BY: [employer] Uoakns1224 [facility] [id number] Sedimentation Rate-Westergren 2 mm/h (Normal) Range: 0-15 07-Kfy-060210:19 METABOLIC PANEL, COMPREHENSIVE Comments: PATIENT NOT FASTINGPERFORMED BY: [employer] [facility] [id number] (42006) ALT (SGPT) 17 [iU]/L (Normal) Range: 0-44 [...] 6-24 Glucose 88 mg/dL (Normal) Range: 65-99 42-Sti-253954:19 CBC, PLATELETS & AUT DIFF Comments: PATIENT NOT FASTINGPERFORMED BY: [facility] Lgpwwe2180 [facility] [id number] (58460) Immature Grans (Abs) 0.0 {x10E3/uL} (Normal) Range: [...] 4.14-5.80 WBC 7.8 {x10E3/uL} (Normal) Range: 3.4-10.8 6-Lpr-330721:34 Comprehensive Metabolic Profil Comments: Order Date: 04/13/18Order Info: 0786-1 - [facility] [address] [place] [address], [id number] GAP 5 (Normal) Range: 5-15 CO2 31.0 [...] Comments: Please note revised GLUCOSE reference range hsvbnpdif69/02/2018. 10-Fvk-271255:42 Urinalysis, Office (46130) UA - LEUKOCYTE ESTERASE Negative (Normal) UA - NITRITE Negative (Normal) URINE UROBILINGN AMARIS TIMED Normal mg/dL (Normal) UA - PROTEIN Negative mg/dL (Normal) UA - PH 7.0 (Normal) UA - BLOOD Negative (Normal) UA - SPECIFIC GRAVITY 1.010 (Normal) UA - KETONES Negative mg/dL (Normal) UA - BILIRUBIN Negative (Normal) UA - GLUCOSE Negative (Normal) 70-Cgi-212537:52 CBC W/Diff, Automated Comments: [facility] [address] [place], [address] Absolute Lymph 1.66 {X10_3/ul} (Normal) Range: 0.83-4.51 [...] 4.6-6.2 WBC 4.5 K/mm3 (Normal) Range: 4.4-11.0 56-Mfw-960189:52 Comprehensive Metabolic Profil Comments: [facility] [address] [place], [place], [address] GAP 6 (Normal) Range: 5-15 CO2 28.0 [...] 7-18 GLU 83 mg/dL (Normal) Range: 70-110 82-Xle-231154:52 Lipid Profile Comments: [facility] [address] [place], [place], [id number] VLDL 30 mg/dL (Normal) Range: 5-40 LDL [...] 200-240 mg/dL Borderline >240 mg/dL High Risk 45-Bcf-999804:52 Microalb:Creat Ratio,Random UR Comments: [facility] [address] [place], [address] MALB:CREAT 8.0 {mg/g_CRE} (Normal) MICROALBUMIN,UR 20.2 mg/L (Normal) UR CREAT 252.00 mg/dL (Normal) :52 PSA,Total - Annual Screen Comments: [facility] [address] [place], [place], [address] PSA,TOT SCREEN 1.30 ng/mL (Normal) Range: 0.00-4.00 Comments: This test was performed using the TPSA assay method for [employer] chemistry system. Values obtained with differentassay methods cannot be used interchangably.When changing PSA assays in the course of monitoring apatient, additional sequential testing should be carriedout to confirm baseline values. :52 Urinalysis, Complete Comments: How was Urine Obtained? [facility] [address] [place], [address] MUCUS, URINE 0 SEEN {/hpf} (Normal) BACTERIA [...] (Normal) CLARITY Clear (Normal) COLOR Yellow (Normal) 60-Sxf-97239:18 CBC With Differential/Platelet Comments: PATIENT WAS FASTINGPERFORMED BY: [facility] [place] 4494870 [facility] [id number] Information: [id number] Immature Grans (Abs) 0.0 {x10E3/uL} (Normal) Range: [...] 4.14-5.80 WBC 5.0 {x10E3/uL} (Normal) Range: 3.4-10.8 29-Ttc-32074:18 Comp. Metabolic Panel (14) Comments: PATIENT WAS FASTINGPERFORMED BY: [facility] Qdljsw4627 [facility] [id number] ALT (SGPT) 21 [iU]/L (Normal) Range: 0-44 [...] With LDL/HDL Comments: PATIENT WAS FASTINGPERFORMED BY: [employer] [facility] [id number] Ratio LDL/HDL Ratio 1.9 {ratio_units} (Normal) Range: [...] Microscopic Examination Comments: PATIENT WAS FASTINGPERFORMED BY: [id number] [facility] [id number] Bacteria None seen (Normal) Mucus Threads Present (Normal) Epithelial Cells (non renal) 0-10 {/hpf} (Normal) Range: 0 - 10 RBC None seen {/hpf} (Normal) Range: 0 - 2 WBC 0-5 {/hpf} (Normal) Range: 0 - 5 :18 Prostate-Specific Ag, Serum Comments: PATIENT WAS FASTINGPERFORMED BY: [id number] [facility] [id number] Prostate Specific Ag, 1.5 ng/mL (Normal) Range: 0.0-4.0 Serum Comments: Kevin ECLIA methodology. .According to the [employer], Serum PSA shoulddecrease and remain [...] Urinalysis, Complete Comments: PATIENT WAS FASTINGPERFORMED BY: [facility] [id number] Microscopic Examination See below: (Normal) Comments: Microscopic was indicated and was performed. Nitrite, Urine Negative (Normal) Urobilinogen,Semi-Qn 0.2 mg/dL (Normal) Range: 0.0-1.9 Bilirubin Negative (Normal) Occult Blood Negative (Normal) Ketones Negative (Normal) Glucose Negative (Normal) Protein 1+ (Abnormal) WBC Esterase Negative (Normal) Appearance Clear (Normal) Urine-Color Yellow (Normal) pH 7.0 (Normal) Range: 5.0-7.5 Specific [place] 1.021 (Normal) Range: 1.005-1.030 43-Cvr-436816:54 Influenza A&B Viral Culture (98446) Influenza A&B Viral Culture positive A and Negative B (Normal) 8-Nll-046121:18 WRIST MIN 3 VIEWS Radiology See Note [...] Judd M.D.March 16, 2013 at 1:49:04 PM [id number] Signed GP/GP If you are the referring physician and would like to consul t with theradiologist who provided this interpretation, please contact Miguel Rai at [phone]. If this radiologist is unavailable, youwill be directed to another radiologist to assist. If you are a patient with a question regarding this report, pleasecontactyour referring physician directly. Professional Interpretation Provided By: [employer], Phone , th jeanette documents contain legally [...] 03/16/13 1516 Sign by: Edmond Judd MD 39-Fql-520736:06 CBCD,SMEAR DIFF BAND 1 % (Normal) Range: [...] mg/dL VLDL 12 mg/dL (Normal) Range: 5-40 1-Abe-658109:07 CBC (Auto) (07346) Comments: PATIENT NOT FASTINGPERFORMED BY: [facility] Otqzil6895 [facility] [id number] Hematocrit 43.5 % (Normal) Range: 36.0-50.0 Hemoglobin 15.1 g/dL (Normal) Range: 12.5-17.0 MCH 33.7 pg (Normal) Range: 27.0-34.0 MCHC 34.7 g/dL (Normal) Range: 32.0-36.0 MCV 97 fL (Normal) Range: 80-98 Platelets 189 {x10E3/uL} (Normal) Range: 140-415 RBC 4.49 {x10E6/uL} (Normal) Range: 4.10-5.60 RDW 12.9 % (Normal) Range: 11.7-15.0 WBC 4.5 {x10E3/uL} (Normal) Range: 4.0-10.5 5-Wqy-235442:07 Metabolic Panel, Comprehensive Comments: PATIENT NOT FASTINGClinical Information: ADD DRAW FEE 219252 ADD J0 1385 PERFORMED BY: [facility] Vfyvgm1219 [facility] [id number] (41430) A/G Ratio 2.0 (Normal) Range: 1.1-2.5 Albumin, [...] 1.49 INDETERMINANT > OR = 1.50 SUGGEST IN Plan of Care Name Dates Details Instructions [...] disease without heart failure Planned Observations TSH (87383)Indication: Anxiety On: Request URINALYSIS, W/ MICRO (20349)Indication: Hypertension, benign On: : Request MICROALBUMIN: CREATININE RATIO (61754) AND (59920)Indication: Hypertension, benign On: : Request METABOLIC PANEL, COMPREHENSIVE (17455)Indication: Hypertension, benign On: : Request LIPOPROTEIN, BLD, BY NMR (03110)Indication: Hypertension, benign On: : Request CBC W/AUTO DIFF WBC (13801)Indication: Hypertension, benign On: :26 Request METABOLIC PANEL, COMPREHENSIVE (71660)Indication: Headache On: 2-Rnm-980079:32 Request URINALYSIS, W/ MICRO (76050)Indication: Hypertension, benign On: :14 Request MICROALBUMIN: CREATININE RATIO (57014) AND (24969)Indication: Hypertension, benign On: 54-Xcw-308917:14 Request METABOLIC PANEL, COMPREHENSIVE (54786)Indication: Hypertension, benign On: 90-Saw-347680:14 Request LIPID PANEL (76485)Indication: Hypertension, benign On: 99-Zzh-622495:14 Request CBC W/AUTO DIFF WBC (03007)Indication: Hypertension, benign On: 09-Tfl-577323:14 Request URINALYSIS, W/ MICRO (43750)Indication: Hypertension, benign On: 37-Bjj-566329:54 Request MICROALBUMIN: CREATININE RATIO (15605) AND (81477)Indication: Hypertension, benign On: :54 Request METABOLIC PANEL, COMPREHENSIVE (89471)Indication: Hypertension, benign On: :54 Request LIPID PANEL (14387)Indication: Hypertension, benign On: :54 Request CBC W/AUTO DIFF WBC (17791)Indication: Hypertension, benign On: :54 Request URINALYSIS (84292)Indication: Hematuria On: 99-Jxr-943859:43 Request URINALYSIS, W/ MICRO (82275)Indication: Hematuria On: 19-Hbo-351711:30 Request LIPID PANEL (46802)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 On: :32 Request URINALYSIS, W/ MICRO (37208)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 On: 99-Uqb-044700:32 Request MICROALBUMIN: CREATININE RATIO (24283) AND (64742)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 On: :32 Request METABOLIC PANEL, COMPREHENSIVE (91532)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 On: :31 Request CBC W/AUTO DIFF WBC (17668)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 On: :31 Request PSA (PROSTATE SPECIFIC ANTIGEN) (V76.44)Indication: Encounter for screening for malignant neoplasm of prostate (Renamed from Screening for prostate cancer) On: 37-Oiv-860768:30 Request UPEP (75138)Indication: Urine protein increased On: 94-Srx-94699:55 Request MICROALBUMIN: CREATININE RATIO (16574) AND (88135)Indication: Urine protein increased On: :55 Request URINALYSIS, W/ MICRO (55957)Indication: Encounter for routine history and physical exam for male On: 9-Ivo-894322:09 Request METABOLIC PANEL, COMPREHENSIVE (76468)Indication: Encounter for routine history and physical exam for male On: 5-Mon-781573:09 Request LIPID PANEL (89199)Indication: Encounter for routine history and physical exam for male On: 9-Ksx-750868:09 Request CBC with auto diff (49290)Indication: Encounter for routine history and physical exam for male On: 9-Jtk-570980:08 Request PSA (PROSTATE SPECIFIC ANTIGEN) (V76.44)Indication: Encounter for routine history and physical exam for male On: 8-Dbq-648036:08 Request Rapid Flu (36487 x 2)Indication: Fever On: 24-Asl-917736:53 Request AST (SGOT) (Aspart Amino Transferase) (10121)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 On: 68-Krt-609662:58 Request Metabolic Panel, Basic (51700)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 On: :58 Request Lipid Panel (40735)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 On: :58 Request Comments: in six months (approximately) Lipid Panel (14927)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 On: 46-Ipq-242092:15 Request METABOLIC PANEL, COMPREHENSIVE (44474)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 On: 05-Psw-195053:14 Request CBC WITH MANUAL DIFF (81092)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 On: 42-Kai-843664:14 Request Rapid Strep Test, Office (21807)Indication: Pharyngitis, acute On: 80-Lmb-023333:54 Request METABOLIC PANEL, BASIC (52970)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 On: 8-His-074889:30 Request CBC WITH MANUAL DIFF (03669)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 On: 24-Ypp-815870:03 Request METABOLIC PANEL, COMPREHENSIVE (07939)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 On: 19-Hxh-994805:03 Request LIPID PANEL (22136)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 On: 63-Gom-769957:[address] NECK SOFT TISSUE W CONTRAST On: 01-Sep-2018 Intent (20671)By: Graciela Pedraza DO, DO, Kathleen ULTRASOUND OF NECK LYMPHATICS On: 31-Aug-2018 Intent (52104)By: Chayo Monet Comments: STAT: Attention Left clavicle area ELECTROCARDIOGRAM, COMPLETE (ECG) On: 10-May-2018 Intent (82311)By: Graciela Pedraza DO Comments: nsr no acute chg Graciela Pedraza DO Radiology - Cervical SpineBy: On: 13-Apr-2018 Intent Chayo Monet Radiology - Thoracic SpineBy: On: 13-Apr-[address] SCAN OF HEAD OR BRAIN WITH AND On: 13-Apr-2018 Intent WITHOUT CONTRAST (30441)By: Chiki, Comments: R/O Subdural hematoma, -head injury and headache Chayo ATTENDED SLEEP STUDY (51308)By: On: 30-May-2017 Intent Graciela Pedraza DO, DO, Kathleen Echo CompleteBy: Graciela Pedraza DO On: 04-May-2017 Intent Graciela Pedraza DO ELECTROCARDIOGRAM, COMPLETE (ECG) On: 04-May-2017 Intent (52450)By: Graciela Pedraza DO Comments: nsr no acute [...] EYE EXAMINATION, ESTAB PATIENT On: 28-Aug-2012 Intent (49645)By: Merry Sanders CNP EKG (05801)By: CAMACHO Mendes On: 04-Apr-2008 Intent Spirometry (05700)By: Kapil QUINTERO, On: 11-Oct-2007 Intent Clemencia A Comments: good effort and curve mild airway obstruction Inhaler Demo (39799)By: Kapil DO, On: 11-Oct-2007 Intent Clemencia A Bio Z (78551)By: Jane Fischer MD On: 03-Oct-2006 Intent EKG (23839)By: Jane Fischer MD On: 03-Oct-2006 Intent Planned [...] on the railing-lump on the back of ravy-xboiqamxb-bfcnwruad headahce, never had migraines but feels like [...] night of beer.) ,depression in the past ,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
--- OUTSIDE RECORDS SUMMARY | 2018-12-03 02:31 | XMS RPT_ITS ---
:1970 Author Organization OHIP Care Team Providers Name Role Phone Chayo Monet Attending Unavailable Chayo Monet Referring Unavailable Milo, Graciela Primary Care Unavailable Milo, Graciela Attending Unavailable Milo, Graciela Referring Unavailable Milo, Graciela Primary Care Unavailable Chayo Monet Attending Unavailable Chayo Monet Referring Unavailable Milo, Graciela Primary Care Unavailable Cebul, Ricky Attending Unavailable Milo, Graciela Referring Unavailable Cebul, Ricky Attending Unavailable Cebul, Ricky Referring Unavailable Milo, Graciela Primary Care Unavailable Hollie ZEPEDA, Rachel Attending Unavailable Milo, Graciela Referring Unavailable PROBLEMS PROBLEMS DATE TYPE CONDITION / CODE ATTENDING STATUS SOURCE 08/31/2018 Unknown R22.1 - Chayo Monet Localized ACTIVITIES THERAPIST-C [facility] swelling, [facility] Hospital and lump, neck / Repository R22.1(ICD-10) 04/14/2018 Unknown R51 - Headache / Chayo Monet R51(ICD-10) ACTIVITIES THERAPISTC [facility] PROCEDURES PROCEDURES No Procedure Records FoundRESULTS RESULTS SURGERY VISIT REPORT Observed: 10/05/2018 Status: F Source: [place] 12:58 PM [facility] REPOSITORY [facility] [address] [place] [address] [address] [place] [address] OFFICE VISIT Date of Service: 10/05/18 MR#: [id number] Acct: [id number] Name: CHONGJAYDA Rivas Rep #: [id number] : 1970 Provider: Rachel Browne PA-C Age/Sex: 48/M Location: [facility] Status: Signed with Addenda ADDENDUM by Rachel Browne PA-C on 10/05/18 at 1258 Addendum entered and electronically signed by Rachel Browne PA-C 10/05/18 12:58: Culture returned as no growth. 10/05/18 1258 <Electronically signed by Rachel Browne PA-C> Date Rachel Browne PA-C cc: Graciela Pedraza DO * Signed Intake Vital Signs10/02/18 Body Mass Index (BMI) 21.9 Intake Visit Reasons: Lt Supraclavicular Lymph Node Bx RC 09/[address]: [address] Allergies No Known Allergies Allergy (Verified 09/27/18 08:11) Medications citalopram 40 mg tablet 40 mg PO DAILY 09/22/18 [History Confirmed 09/27/18] traMADol [Ultram] 100 mg PO Q6H PRN PRN 09/27/18 [History Confirmed 09/27/18] Quinapril HCl 20 mg PO DAILY 09/28/18 [History Confirmed 09/28/18] Subjective Details: Patient is a 48 y/o male I am following for enlarged left neck lymph node. Dr. Meyer performed an excisional biopsy of the left supraclavicular lymph node on 09/28/2018. Patient tolerated the procedure well. Pathology demonstrated the following: Left supraclavicular lymph node, biopsy:Acute inflammation with black pigment deposition.Focal necrotizing and non-necrotizing granulomatous inflammation.Negative for acid-fast bacilli and fungal organisms.No evidence of malignancy. Patient notes minimal amount of soreness. Patient has returned to work. Objective Details: Left neck- incision c/d/i. No erythema or infection noted. Minimal amount of ecchymosis. Assessment AND Plan Problems 1. Supraclavicular adenopathy R59.0 Plan - Follow-up as needed - Pathology was sent to PCP Coding Level of Care Code Global Post Op Diagnoses Supraclavicular adenopathy R59.0 10/05/18 1257 <Electronically signed by Rachel Browne PA-C> Date Rachel Browne PA-C Cosigner Signature: Date (if applicable) CC: Graciela Pedraza DO OPERATIVE REPORT Observed: 09/28/2018 Status: F Source: EDISON 3:39 PM [facility] REPOSITORY [facility] Medical Records Department [address] [place] [address] Operative Report 09/28/18 1413 MR#: [id number] Acct: [id number] Name: JAYDA CHONG Rep #: [id number] : 1970 48 From: Ricky Meyer MD PCP: Graciela Pedraza DO Status: REG [facility] [place] Location: [place] [address] Problem List (1) Supraclavicular adenopathy Status: Acute Report of Operation Date of Procedure: 09/28/18 Pre-Operative Diagnosis: Left supraclavicular adenopathy Post-Operative Diagnosis: Same Surgery/Procedure Performed:: Excisional biopsy of left supraclavicular lymph node Description of Surgical Findings:: Timeout and informed consent was obtained. 48-year-old gent was taken to the operative room placed upon the table. He underwent monitored anesthesia care. Left supraclavicular area was sterilely prepped and draped with ChloraPrep. 1% lidocaine mixed 50-50 with 0.5% Marcaine was used as a local anesthetic. A total of 10 cc was used. A transverse incision was made directly over the lymph node. Sharp dissection carried down through the subcu tissue. Great care was taken to carefully spread to the chest to to avoid any neurovascular structures. A 2-0 Vicryl suture was placed in lymph node to use for retraction. Circumferential dissection performed. The became apparent that the lymph node appeared to be pigmented. Patient has a very large left anterior chest tattoo and significant proximity to this area. It is felt likely to have discoloration of the lymph node secondary to the tattoo. Using sharp dissection electrocautery dissection I was able to completely excise the palpable nodule again consistent with a lymph node. Hemostasis was intact. Fascial layers were approximated with interrupted 3-0 Vicryl. Subdermal edges approximate the same. Skin edges proximal a running septic or 4-0 Monocryl. Steri-Strip Telfa and OpSite dressings applied. Sponge and instrument and needle were reported to the surgeon to be correct. Blood loss was minimal. He tolerated procedure well without apparent complication. Specimen includes lymph node. Portion was sent for Gram stain culture and sensitivity aerobic anaerobic and fungal. Another portion was sent in saline for pathologic evaluation. Drains none. Blood loss minimal. Ricky Meyer M.D., F.A.C.S. Type of Anesthesia:: Local MAC Anesthesiologist: Oskar Salmon 09/28/18 1539 <Electronically signed by Ricky Meyer MD> Date Ricky Meyer MD CC: Graciela Pedraza DO; Ricky Meyer MD Signed DISCHARGE INSTRUCTION Observed: 09/28/2018 Status: F Source: [place] 3:39 PM [facility] REPOSITORY [facility] Medical Records Department [address] [place] [address] Instructions for Home/Discharge Instructions 09/28/18 1338 MR#: [id number] Acct: [id number] Name: JAYDA CHONG Rep #: [id number] : 1970 48 From: Ricky Meyer MD PCP: Graciela Pedraza DO Status: REG [facility] [place] Discharge Diet: Light diet - advance as tolerated - if you have questions about your diet instructions, please talk to you doctor. Discharge Activity: May Not Drive - for today or while taking narcotic pain medicine. May shower in (days): 1 Lifting Restrictions: 10 pounds Call your doctor if your incision/area has: Continuous Slow Oozing, Sudden Increased Bleeding, Increased Pain/ Swelling, Increased Redness, Foul Smelling Discharge Call your doctor if you observe: Fever of 101 or Higher Suture Line Care: Avoid Pulling/Pushing, Avoid Pinching/Bending Additional Dressing/Incision Instructions:: Change or remove dressing in 4 days. Leave steri-strips in place for 1 week. Allergies/Adverse Reactions: Allergies No Known Allergies Allergy (Verified 09/27/18 08:11) Medications to take at Discharge citalopram 40 mg tablet 40 mg PO DAILY 09/22/18 traMADol [Ultram (G)] 100 mg PO Q6H PRN PRN 09/27/18 Quinapril HCl 20 mg PO DAILY 09/28/18 Primary Care Physician: Graciela Pedraza DO [Primary Care Provider] - Test Results: Test results from this visit will be discussed in further detail at your follow-up appointment, if applicable. Please Follow Up With: Ricky Meyer MD - [phone] When: Call to make an appointment to be seen in about 7 days. 09/28/18 1539 <Electronically signed by Ricky Meyer MD> Date Ricky Meyer MD CC: Graciela Pedraza DO Signed Observed: 09/28/2018 Status: F Source: [place] CULTURE, DEEP WOUND 2:08 PM [facility] REPOSITORY Order Date: 04/13/17 Has pt arrived? Y Comments: LEFT SUPRACLAVICULAR LYMPH NODE Gram Stain Gram Stain No organisms seen 1+ White Blood Cells Wound Culture No growth aerobically. Cult, Anaerobic No growth in 5 days. Performed By: #### M100.1500 #### [facility] [address] [place], [address] LYMPH NODE REGIONAL Observed: 09/28/2018 Status: F Source: [place] RESECTION 1:55 PM [facility] REPOSITORY Patient: JAYDA CHONG : 1970 (48/M) Acct Num: [id number] Phys: Ricky Meyer MD Unit Num: [id number] Loc: [facility] [place] Specimen: [id number] Received: 09/28/180 Spec Type: LYM NODES TISSUES 1 TISSUES: Lymph node of neck, NOS COMMENT Immunohistochemistry ([id number]) supports the above diagnosis. There is no evidence of a lymphoproliferative disorder. FLOW analysis supports the above diagnosis. The complete flow report is viewable in patient's EMR. AFB and PASF stains with matched controls support the above diagnosis. Chamfering Machine Operator touch preps (H AND E and Diff-Quik stains) are prepared and show a polymorphous lymphocytic population. Black pigment in the tissue is consistent with recent tattoo. Clinical correlation is suggested. GROSS DESCRIPTION Received fresh for lymph node protocol labeled with the patient's name is a specimen designated left lymph node, supraclavicular. The specimen consists of an ovoid piece of hargrove soft tissue with bluish-black dye discoloration measuring 1.5 x 1 x 1 cm. A section is submitted for flow cytometry studies. Four touch imprints are prepared, two stained with Diff-Quik and two stained with H AND E. The entire specimen is submitted in two cassettes. / SJ:sai TC:2 CPT: 91098, 95754, 36480 x2 HEADER OPERATION: Supraclavicular lymph node biopsy PRE-OP DIAGNOSIS: Supraclavicular adenopathy TISSUE SUBMITTED: Left supraclavicular lymph node sent fresh for lymph node protocol (patient has a large tattoo in that area) MICROSCOPIC DESCRIPTION Slides are reviewed. MICROSCOPIC DIAGNOSIS Left supraclavicular lymph node, biopsy: Acute inflammation with black pigment deposition. Focal necrotizing and non-necrotizing granulomatous inflammation. Negative for acid-fast bacilli and fungal organisms. No evidence of malignancy. AM:sai 09/29/18 Signed Leonides Enriquez DO 10/04/18 <signature on file> Performed By: #### PLYM #### [facility] [place], [address] IMMUNOHISTOCHEMISTRY Observed: 09/28/2018 Status: F Source: ED[place] 12:00 AM [facility] REPOSITORY Patient: JAYDA CHONG : 1970 (48/M) Acct Num: [id number] Phys: Mitch HATHAWAY,Ricky Unit Num: [id number] Loc: [facility] [place] Specimen: [id number] Received: 09/29/18 - 1213 Spec Type: IMMUNO TISSUES 1 TISSUES: Lymph node, NOS - #2 SPECIMEN INFORMATION: Tissue Source: Left supraclavicular lymph node Clinical Info: Supraclavicular adenopathy Specimen Number: [id number] #2 CPT code: 91926, 02852 x10 METHODOLOGY: Deparaffinized sections of prefer/formalin-fixed tissue or PAP/DQ stained slides are incubated with monoclonal/polyclonal antibodies/oligonucleotide probes. Localization is made via biotin free immunoperoxidase method. Appropriate controls are performed and reacted as expected. Results on target cell population are indicated in the following table: RESULTS: ANTIBODY / CLONE RESULT Block #2 AE1-3 (AE1/AE3/PCK26) negative CD3 (PS1) positive, zonal CD5 (SP10) positive, zonal CD20 (L26) positive, zonal CD43 (L60) positive, zonal CD45 (RP2/18) positive CD79a (11E3) positive, zonal CD138 (B-A38) positive, focal Macro (HAM-56) positive Ki-67 (30-9) positive, low P53 (DO-7) negative These tests were developed and their performance characteristics determined by [facility]. They may not have been cleared or approved by the U.S. Food and Drug Administration. The FDA has determined that such clearance or approval is not necessary. INTERPRETATION: Left supraclavicular lymph node, biopsy: Consistent with benign reactive lymph node tissue Commnet: Black pigment is present and is consistent with tattoo dye/pigment. Clinical correlation is suggested. AM:mayda 10/02/18 PHYS[facility]IAN [facility] INSTIT[facility] [address] [address] Signed Leonides Enriquez, DO 10/02/18 <signature on file> Performed By: #### PIMM #### [facility] [address] [place] [address]. [place], [place], [address] ERYTHROCYTE SED RATE Collected: 09/27/2018 Status: F Source: [place] 1:34 PM [facility] REPOSITORY TYPE CODE TESTS RESULT OUT OF RANGE REFERENCE UNITS LAB L102.0000 0-15 mm/hr Normal SED RATE 2 Performed By: #### L101.9900, L100.0100 #### [facility] [address] [place] [address], [id number] CBC W/DIFF, AUTOMATED Collected: 09/27/2018 Status: F Source: EDISON 1:34 PM [facility] REPOSITORY TYPE CODE TESTS RESULT OUT OF RANGE REFERENCE UNITS LAB L100.1000 4.4-11.0 K/mm3 Normal WBC 4.9 LAB L100.1200 4.6-6.2 M/mm3 Low RBC 4.50 LAB L100.1300 13.0-16.5 g/dl Normal HGB 14.1 LAB L100.1400 40-54 % Normal HCT 41.7 LAB L100.1500 80-94 fL Normal MCV 92.7 LAB L100.1600 27.0-32.0 pg Normal MCH 31.3 LAB L100.1700 32-36 g/gl Normal MCHC 33.8 LAB L100.1810 11.6-14.6 % Normal RDW CV 12.4 LAB L100.1820 35.1-43.9 fl Normal RDW SD 41.2 LAB L100.1900 150-450 K/mm3 Normal PLT 285 LAB L100.2000 6.2-12.0 fl Normal MPV 10.8 LAB L100.2100 47-70 % Normal NEUT% 57.2 LAB L100.2200 19-41 % Normal LY% 28.0 LAB L100.2300 0-10 % High MONO% 12.2 LAB L100.2400 0-5 % Normal EO% 1.8 LAB L100.2500 0-1 % Normal BASO% 0.4 LAB L100.2550 0.0-0.9 % Normal IM GRAN % 0.400 Result Comment: IG% - Immature Granulocytes (promyelocytes, myelocytes and metamyelocytes) > 1% indicates that a LEFT SHIFT is Present. LAB L100.2620 2.0-7.7 X10 3/uL Normal Absolute Neut 2.8 LAB L100.2720 0.83-4.51 X10 3/ul Normal Absolute Lymph 1.38 Performed By: #### L101.9900, L100.0100 #### [facility] [address] [place], [place], [id number] BASIC METABOLIC Collected: 09/27/2018 Status: F Source: [place] PROFILE ([facility]) 1:34 PM [facility] REPOSITORY TYPE CODE TESTS RESULT OUT OF RANGE REFERENCE UNITS LAB L501.0100 74-106 mg/dL Low GLU 59 Result Comment: Please note revised GLUCOSE reference range effective 2017. LAB L501.1000 7-18 mg/dL Normal BUN 13 LAB L501.1100 0.70-1.30 mg/dL Normal CREAT,SERUM 1.03 Result Comment: The validity of the calculated GFR AND GFRAA in patients over 70 years has not been determined. Clinical correlation is essential. LAB L501.1110 >60 mL/min Normal EST GFR 82 Result Comment: Non- GFR Calc LAB L501.1115 >60 mL/min Normal EST GFR - AA 99 Result Comment: GFR Calc LAB L501.1300 10-20 RATIO Normal BUN/CRE 12.6 LAB L501.2200 8.5-10.1 mg/dL CA Normal 8.9 LAB L501.5300 136-145 mmol/L NA Normal 139 LAB L501.5600 3.5-5.1 mmol/L K Normal 4.0 LAB L501.5900 98-107 mmol/L CL Normal 102 LAB L501.6100 21.0-32.0 mmol/L Normal CO2 31.0 LAB L501.6200 5-15 Normal GAP 6 Performed By: #### L500.2500 #### [facility] [address] [facility] [place], [address] SURGERY VISIT REPORT Observed: 09/22/2018 Status: F Source: ED[place] 4:55 PM [facility] REPOSITORY [facility] [address] 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 Is patient in pain?: Yes Allergies No Known Allergies Allergy (Verified 09/22/18 14:59) Medications citalopram 40 mg tablet 40 mg PO DAILY 09/22/18 [History Confirmed 09/22/18] quinapril 40 mg tablet 40 mg PO DAILY 09/22/18 [History Confirmed 09/22/18] PFSH Medical History Supraclavicular adenopathy (Acute) Depression (Acute) Enlarged lymph node in neck (Acute) HTN (hypertension) (Chronic) Surgical History History of colonoscopy (Acute 2015) History of knee surgery (Acute 1985) Family History Father Hypertension Sister Colon cancer Mother Colon cancer Social History Smoking Status: Never smoker HPI HPI HPI: JAYDA CHONG, is a 48 M who presents to the office today for surgical consultation regarding a left supraclavicular enlarged lymph node. The patient is referred by surgical consultation by Dr. Graciela Pedraza and a written copy of my surgical consult recommendations will be returned to her. The patient states that for past have some month or so he has had a tender nodule the left supraclavicular area. He did have a small ingrown hair medial sternal area but that now seems to have resolved. He has had some waxing and waning in size he thinks of this left supraclavicular node. As of April 13, 2018 at that point complete metabolic profile was normal. He denies fever or chills or sweats. He denies any injury to the left hand or upper extremity. To help evaluate him on September 15, 2018 CT scan of the soft tissue of the neck was done. The visualized cervical lymph nodes appear to be normal. There is a 2 cm nodule in the left supraclavicular area. Impression was small mass left supraclavicular area probable small nodes in the left side of the neck etiology not clear. Previously on August 31, 2018 and ultrasound had been obtained of that area and there was a 1.1 x 0.9 cm vascular hypoechoic lesion soft tissues overlying the left clavicle which may represent a lymph node. ROS General General: No weight change, appetite, fatigue, colon cancer, breast cancer or weakness HEENT HEENT: No difficulty swallowing, eye injury, eye surgery, swollen glands or hoarseness Endo Endocrine: No thyroid disease, diabetes mellitus, thyroid cancer, Hair loss, heat intolerance or cold intolerance Musc Musculoskeletal: No back problems, arthritis, rheumatoid arthritis, gout or joint pain Cardio Cardiovascular: Yes high blood pressure; no murmur, pacemaker, heart disease, atrial fibrillation, heart attack, heart stent, palpitations, shortness of breat with exertion or chest pain Resp Respiratory: No shortness of breath, No sleep apnea, Yes cough, No COPD, No asthma, No emphysema, No wheezing Gastro Gastrointestinal: No abdominal pain, No nausea or vomiting, No diarrhea, No constipation, No blood in stool, No acid reflux, No hemorrhoids, No ulcers, No gallbladder problem, No black,tarry stools Jose Ramon Hematologic: No blood thinners, No blood disorders, No bleeding, No anemia, No blood clots Neuro Neurologic: No weakness Exam Const General: cooperative, healthy appearing, comfortable, no acute distress Nutritional Appearance: average body habitus Orientation: alert, awake, oriented x3 HENMT Head: normal to inspection Neck Other: Left neck seems to have mild diffuse fullness as compared to a more scaphoid right neck. Left supraclavicular area as an easily palpable 2 cm diameter firm but slightly mobile mass above the mid to slightly more lateral Chest Other: Just below the left sternoclavicular joint there is an area of skin scar erythema with slight erythema to it no drainage completely epithelialized suggestive of previous dermal infection Resp Effort AND Inspection: normal respiratory effort Auscultation: clear to auscultation bilaterally Cardio Rate: regular rate Rhythm: regular rhythm Heart Sounds: no murmurs GI Palpation: soft, no hepatosplenomegaly Auscultation: normal bowel sounds Neuro General: alert, awake, oriented x3 Extrem General: no calf tenderness bilaterally Psych Affect: normal affect Assessment AND Plan Problems 1. Supraclavicular adenopathy R59.0 Plan The left supraclavicular mass/LN seems more firm then anticipated. We discussed FNA vs core bx vs excisional bx. It is tender/symptomatic. I recommend excisional bx for definitive dx. He has had an opportunity to ask and have questions answered. Will proceed with [facility] local. Ricky Meyer MD, FACS Coding Level of Care Code Detailed, Low Diagnoses Supraclavicular adenopathy R59.0 09/22/18 8723 <Electronically signed by Ricky Meyer MD> Date Ricky Meyer MD Cosigner Signature: Date (if applicable) CC: Graciela Pedraza DO SOFT TISSUE NECK WITH Observed: 09/15/2018 Status: F Source: [place] CONTRAST 2:47 PM [facility] REPOSITORY [facility] Imaging Services [address] [place] [address] Soft Tissue Neck WITH Contrast MR#: [id number] Acct: [id number] Name: JAYDA CHONG Rep #: [id number] : 1970 M 48 From: Cristóbal Kaur MD PCP: Graciela Pedraza DO Status: REG CLI Study: Soft Tissue Neck WITH Contrast Date of Exam: 09/15/18 Exam# [id number] Ordering Dr: Graciela Pedraza DO STUDY: CT SOFT TISSUE NECK WITH CONTRAST REASON FOR EXAM: Male, 48 years old. Left supraclavicular mass. RADIATION DOSAGE (If Supplied By Facility): CTDIvol = ( 15.12 ) mGy, DLP = ( 449.20 ) mGycm TECHNIQUE: The patient was scanned in a multi-detector CT scanner. High resolution transaxial imaging was performed following intravenous administration of 100ml ml of Isovue 300 contrast material. Sagittal and coronal images were reconstructed. Individualized dose optimization techniques were used for this CT. COMPARISON: None. FINDINGS: Normal bilateral parotid glands. Normal bilateral superintendent pipelines spaces. Normal bilateral parapharyngeal spaces. There is mild fullness of the left carotid space which may represent small nodes. No focal mass however is definitely identified. Normal bilateral sublingual and submandibular glands [...] seen on coronal images 58-63 series 602. There is otherwise no abnormal contrast enhancement. Normal epiglottis, bilateral vallecula and hypopharynx. The pre-epiglottic and paraglottic adipose spaces are normal. Normal visualized bilateral piriform sinuses, aryepiglottic folds, vocal cords, and arytenoid-cricoid articulations. Normal subglottic trachea. Normal bilateral lobes of the thyroid gland. Normal visualized pulmonary apices. Normal visualized paranasal sinuses. Normal visualized cervical spine. CT/Soft Tissue Neck WITH Contrast IMPRESSION: 1. Small mass in the left supraclavicular region as described above corresponding to the palpable abnormality. Again could represent prominent node. Other etiologies are not excluded. 2. Probable small nodes on the left side of the neck. Electronically Signed: Cristóbal Kaur MD at 15:07 EST Tel , Service support , CC: Graciela Pedraza DO Sheet Metal Shop Foreman: Signed HEAD/NECK SOFT TISSUE Observed: 08/31/2018 Status: F Source: EDISON 4:43 PM [facility] REPOSITORY [facility] Imaging Services [address] [place] [address] Head/Neck Soft Tissue MR#: [id number] Acct: [id number] Name: JAYDA CHONG Rivas Rep #: [id number] : 1970 M 48 From: Ashok Farnsworth MD PCP: Graciela Pedraza DO Status: REG CLI Study: Head/Neck Soft Tissue Date of Exam: 08/31/18 Exam# [id number] Ordering Dr: Chayo Monet ACTIVITIES THERAPIST-C STUDY: SOFT TISSUE NECK ULTRASOUND REASON FOR EXAM: Male, 48 years old. Painful lump over left clavicle TECHNIQUE: Ultrasound evaluation of the soft tissues of the neck was performed with real-time and static beckman-scale imaging. COMPARISON: None. FINDINGS: There is a 1.1 x 0.9 cm vascular hypoechoic lesion in the soft tissues overlying the left clavicle. This may represent a lymph node. However, a soft tissue mass cannot be excluded. Further evaluation with CT is recommended. US/Head/Neck Soft Tissue IMPRESSION: 1.1 x 0.9 cm vascular hypoechoic lesion in the soft tissues overlying the left clavicle. This may represent a lymph node. However, a soft tissue mass cannot be excluded. Further evaluation with CT is recommended. Electronically Signed: Ashok Grimesjustinoketurah, at 18:14 EST Tel , Service support , CC: VIVIAN Monet; Graciela Pedraza DO Sheet Metal Shop Foreman: Signed COMPREHENSIVE METABOLIC Collected: 04/13/2018 Status: F Source: [place] PROFIL 12:34 PM [facility] REPOSITORY Order Comment: Order Date: 04/13/18 Order Info: 0786-1 - CMP TYPE CODE TESTS RESULT OUT OF RANGE REFERENCE UNITS LAB L501.0100 74-106 mg/dL Normal GLU 88 Result Comment: Please note revised GLUCOSE reference range effective 2017. LAB L501.1000 7-18 mg/dL Normal BUN 16 LAB L501.1100 0.70-1.30 mg/dL Normal CREAT,SERUM 1.19 Result Comment: The validity of the calculated GFR AND GFRAA in patients over 70 years has not been determined. Clinical correlation is essential. LAB L501.1110 >60 mL/min Normal EST GFR 69 Result Comment: Non- GFR Calc LAB L501.1115 >60 mL/min Normal EST GFR - AA 84 Result Comment: GFR Calc LAB L501.1300 10-20 RATIO Normal BUN/CRE 13.4 LAB L501.1500 6.4-8.2 g/dL T Normal PROT 7.6 LAB L501.1800 3.2-5.0 g/dL Normal ALB 4.2 LAB L501.1950 2.2-4.2 g/dL Normal GLOB 3.4 LAB L501.2000 0.9-2.4 RATIO Normal A/G 1.2 LAB L501.2200 8.5-10.1 mg/dL CA Normal 9.0 LAB L501.4100 15-37 U/L Low AST 13 LAB L501.4305 45-117 U/L Normal ALK P 52 LAB L501.4405 16-61 U/L Normal ALT 23 LAB L501.4600 0.20-1.00 mg/dL T Normal BILI 0.50 LAB L501.5300 136-145 mmol/L NA Normal 139 LAB L501.5600 3.5-5.1 mmol/L K Normal 4.0 LAB L501.5900 98-107 mmol/L CL Normal 103 LAB L501.6100 21.0-32.0 mmol/L Normal CO2 31.0 LAB L501.6200 5-15 Normal GAP 5 Performed By: #### L500.4050 #### [facility] [address] [place], [address] BRAIN/HEAD WITHOUT Observed: 04/13/2018 Status: F Source: EDISON CONTRAST 12:28 PM [facility] REPOSITORY [facility] [address] [place] [address] Brain/Head without Contrast MR#: [id number] Acct: [id number] Name: JAYDA CHONG Rep #: [id number] : 1970 M 47 From: Edmond Judd MD PCP: Graciela Pedraza DO Status: REG CLI Study: Brain/Head without Contrast Date of Exam: 04/13/18 Exam# [id number] Ordering Dr: Chayo Monet ACTIVITIES THERAPIST-C STUDY: CT BRAIN WITHOUT CONTRAST REASON FOR EXAM: Male, 47 years old. Nausea following a recent head injury.. RADIATION DOSAGE (If Supplied By Facility): CTDIvol = ( 44.99 ) mGy, DLP = ( 782.05 ) mGycm TECHNIQUE: Transaxial CT imaging of the brain was performed without administration of intravenous contrast material. Individualized dose optimization techniques were used for this CT. COMPARISON: None. FINDINGS: Focal soft tissue swelling overlying the left occipital bone. Normal calvarium. Normal size ventricles and extra-axial spaces for the patient's age. Normal white matter tracts of the cerebral hemispheres. Normal basal ganglia and thalami. Normal brainstem. Normal cerebellum. There is no intracranial hemorrhage. There are no findings of an acute ischemic infarction. Normal visualized paranasal sinuses. CT/Brain/Head without Contrast IMPRESSION: Normal unenhanced CT scan of the brain. Electronically Signed: Edmond Judd MD at 13:22 EDT Tel [phone], Service support , CC: VIVIAN Monet; Graciela Pedraza DO [employer] Foreman: Signed THORACIC SPINE 3 Observed: 04/13/2018 Status: F Source: NICHOLE VIEWS 12:28 PM [facility] REPOSITORY [facility] Services [address] [place] [address] Thoracic Spine 3 Views MR#: [id number] Acct: [id number] Name: JAYDA CHONG Rep #: [id number] : 1970 M 47 From: Frank Vivar MD PCP: Graciela Pedraza DO Status: REG CLI Study: Thoracic Spine 3 Views Date of Exam: 04/13/18 Exam# [id number] Ordering Dr: Chayo Monet STUDY: X-RAY - THORACIC SPINE REASON FOR EXAM: Male, 47 years old. Back pain. Injury. TECHNIQUE: 3 view(s) of the thoracic spine were obtained. COMPARISON: None. FINDINGS: Normal kyphosis of the thoracic spine. There is no substantial scoliosis. Normal thoracic vertebrae and endplates. Normal disc space heights. The soft tissue structures are unremarkable. RAD/Thoracic Spine 3 Views IMPRESSION: Normal x-ray examination of the thoracic spine. Electronically Signed: Frank Vivar MD at 23:08 EDT , Service support , CC: VIVIAN Monet; Graciela Pedraza DO [employer] Foreman: Signed CERV SPINE 4 OR 5 Observed: 04/13/2018 Status: F Source: NICHOLE VIEWS 12:28 PM [facility] REPOSITORY [facility] [address] [place] [address] Cerv Spine 4 or 5 Views MR#: [id number] Acct: [id number] Name: JAYDA CHONG Rep #: [id number] : 1970 M 47 From: Frank Vivar MD PCP: Graciela Pedraza DO Status: REG CLI Study: Cerv Spine 4 or 5 Views Date of Exam: 04/13/18 Exam# [id number] Ordering Dr: Chayo Monet STUDY: X-RAY - CERVICAL SPINE REASON FOR EXAM: Male, 47 years old. Neck and back pain. TECHNIQUE: 5 view(s) of the cervical spine were obtained. COMPARISON: None FINDINGS: Normal anterior atlantoaxial articulation. Normal odontoid process. Normal cervical lordosis. Normal vertebral bodies and endplates. Normal disc space heights. Normal visualized intervertebral neuroforamina. The soft tissue structures are unremarkable. There is no demonstrated fracture of the cervical spine. RAD/Cerv Spine 4 or 5 Views IMPRESSION: Normal x-ray examination of the visualized cervical spine. Electronically Signed: Frank Vivar MD at 23:21 EDT , Service support , CC: VIVIAN Monet; Graciela Pedraza DO [employer] Foreman: Signed ALLERGIES ALLERGIES DATE TYPE / CODE NAME / CODE REACTION SEVERITY SOURCE 09/27/2018 Drug No Known Unknown Nichole [facility] Allergy/4160 Allergies/F00 [facility] [address]6900(SNOMED [id number](RXNOR Repository CT) M) ENCOUNTERS ENCOUNTERS ADMIT/DISCHARGE ACCOUNT ADMITTING ENCOUNTER LOCATION SOURCE NUMBER CLASS 10/05/2018/ [id number] Ambulatory BMSBuilding:B Nichole 9 0 [place] Repository 09/28/2018/ [id number] Ambulatory [place]ole [place] 9 1 [facility] ing:SDCRoom: Repository AC14 09/22/2018/ [id number] Ambulatory BMSBuilding:B [place] 9 4 [place].[facility] Repository 09/15/2018 [id number] Ambulatory [place] 7 [facility] ing:CT Repository 08/31/2018 [id number] Ambulatory [place] 1 [facility] ing:US Repository 04/13/2018 [id number] Ambulatory [place] 5 [facility] ing:CT Repository PAYERS PAYERS ENCOUNTER GUARANTOR PAYER SUBSCRIBER SOURCE 10/05/2018 JAYDA Hathaway [place] [id number] Insurance:MEDICAL BENNETTDOB: [address] Number: Repository [id number]: [phone] [id number] [phone] () Date:[id number] [address]QR: 10/05/2018 Secondary NOT GIVENUNK Nichole Insurance:SELF PAY [facility] Number: Effective Repository Date:2018-10-02 09/28/2018 JAYDA Hathaway [place] [id number] Insurance:MEDICAL BENNETTDOB: [address] Number: Repository [id number]: [phone] [id number] [phone] (HP) Date:1697-24-96HB [address] [address]VI: 09/28/2018 Secondary NOT GIVENUNK Nichole Insurance:SELF PAY [facility] Number: Effective Repository Date:2018-09-25 09/22/2018 JAYDA Hathaway Primary JAYDA Hathaway [place] [id number] Insurance:MEDICAL BENNETTDOB: [facility] [place] Number: Repository [id number]: [phone] [id number] [phone] (HP) Date:0834-84-77YD [address] [address]PP: 09/22/2018 Secondary NOT GIVENUNK Nichole Insurance:SELF PAY [facility] Number: Effective Repository Date:2018-09-21 09/15/2018 JAYDA Hathaway Primary JAYDA Hathaway [place] [id number] Insurance:MEDICAL BENNETTDOB: [address], [place] Number: Repository [id number]: [phone] [id number] [phone] () Date:4944-63-26DJ [address] [address]MS: 09/15/2018 Secondary NOT GIVENUNK Nichole Insurance:SELF PAY [facility] Number: Effective Repository Date:2018-09-01 08/31/2018 JAYDA Hathaway Primary JAYDA Hathaway [place] [id number] Insurance:MEDICAL BENNETTDOB: [facility] 6534[place] Number: Repository [id number]: [phone] [id number] [phone] (HP) Date:[id number] [address] [address]DK: 08/31/2018 Secondary NOT GIVENUNK [place] Insurance:SELF PAY [facility] Number: Effective Repository Date:2018-08-31 04/13/2018 JAYDA Hathaway Primary JAYDA Hathaway [place] [id number] Insurance:MEDICAL BENNETTDOB: [address], Number: Repository [place] [address]Ojl: [id number] Date:0831-62-78[address] ([address]) [address], [place] [address]WE: 04/13/2018 Secondary NOT GIVENUNK [place] Insurance:SELF PAY [facility] Number: Effective Repository Date:2018-04-13
== END 2018-09-28 16:26 | disposition home or self-care (01) ==
LOC: SDC 11:07 → AC 11:07
PROVIDERS: Family Provider Internal Medicine; PCP Internal Medicine; Referring Provider Surgery; Visit Provider Surgery
PROC: (CPT 38500; principal; 2018-09-28 13:40)
DX: R59.0 Localized enlarged lymph nodes (principal); I10 Essential (primary) hypertension
CPT/HCPCS: 00320; 38500; 36415; 80048; 85025; 85652; 87070; 87075; 87102; 87205; 87206; 88305; 88307; 88312; 88341; 88342; J7120; J2405

== ENCOUNTER → 2020-07-16 14:40 | Outpatient (CLI) | payer OTHER, SELFPAY ==
[2018-10-02 08:15] VITALS: BMI 21.9
== END ==
LOC: MTLAB 14:44
PROVIDERS: PCP Internal Medicine; Referring Provider Internal Medicine; Visit Provider Internal Medicine
DX: R07.9 Chest pain, unspecified (principal)
CPT/HCPCS: 36415; 84484

== ENCOUNTER → 2020-07-23 12:51 | Outpatient (CLI) | payer OTHER, SELFPAY ==
[2020-07-21 10:27] VITALS: BMI 23.7
[2020-07-21 12:35] LABS: Absolute Lymphocyte Count 1.37 X10^3/uL (0.83-4.51); Absolute Neutrophil Count 3.1 X10^3/uL (2.0-7.7); Basophil# 0.03 X10^3/uL; Basophil% 0.6 % (0-1); Eosinophil# 0.07 X10^3/uL; Eosinophils% 1.3 % (0-5); Hematocrit 44.2 % (40-54); Hemoglobin 14.7 g/dL (13.0-16.5); Lymphocyte # 1.37 X10^3/ul (4.0); Lymphocyte % 26.3 % (19-41); Mean Corp Hgb Conc 33.3 g/dL (32-36); Mean Corpuscular Hgb 31.3 pg (27.0-32.0); Mean Platelet Vol. 10.8 fl (6.2-12.0); Monocyte# 0.59 X10^3/uL; Monocyte% 11.3 % (0-10); NRBC Flagged by Analyzer 0 % (0-5); Neutrophil % 59.7 % (47-70); Platelet Count 222 K/mm3 (150-450); RBC Distribution Width CV 12.4 % (11.6-14.6); RBC Distribution Width SD 43.2 fl (35.1-43.9); White Blood Count 5.2 K/mm3 (4.4-11.0)
[2020-07-21 12:46] LABS: Prothrombin Time (Protime)PT. 12.8 SECONDS (11.7-14.9)
[2020-07-21 12:48] LABS: Partial Thromboplast Time 27.7 Seconds (24.1-36.2)
[2020-07-21 13:57] LABS: AST(SGOT) 16 U/L (15-37); Alanine Aminotransfer ALT/SGPT 28 U/L (16-61); Albumin, Serum 3.9 g/dL (3.2-5.0); Alkaline Phosphatase 55 U/L (45-117); Anion Gap 4 (5-15); BUN 15 mg/dL (7-18); Bilirubin, Direct 0.08 mg/dL (0.00-0.30); Calcium,Total 9.3 mg/dL (8.5-10.1); Chloride 106 mmol/L (98-107); Cholesterol 251 mg/dL (200); Creatinine, Serum 1.15 mg/dL (0.70-1.30); EST Glomerular Filtration Rate 72 mL/min (>60); Est Glom Filt Rate - Afr Amer 87 mL/min (>60); Globulin 3.6 g/dL (2.2-4.2); Glucose 89 mg/dL (74-106); High Density Lipoprotein 69 mg/dL; Potassium 4.6 mmol/L (3.5-5.1); Protein, Total 7.5 g/dL (6.4-8.2); Sodium Level 139 mmol/L (136-145); Triglycerides 135 mg/dL; Very Low Density Lipoprotein 27 mg/dL (5-40)
--- NOTE | 2020-07-23 12:52 | ECHOD_ITS ---
Reason For Study: MITRAL VALVE PROLAPSE Procedure This was a 2D Doppler, Color Flow transthoracic echocardiogram. The exam was of adequate technical quality. Exam performed in department. Left Ventricle Normal LV size. Sigmoid septum. Left ventricular systolic function is normal. The estimated ejection fraction is 65 %. No evidence for diastolic dysfunction. No regional wall motion abnormalities noted. Right Ventricle Normal size and thickness. Normal systolic function. Atria Normal left atrium. Normal right atrium. No doppler evidence for ASD. Mitral Valve There is no mitral annular calcification. Normal mitral valve. Trivial mitral valve insufficiency. Tricuspid Valve Normal tricuspid valve. Trivial tricuspid valve insufficiency. Right ventricular systolic pressure estimated to be 21 mmHg. Aortic Valve Trisinus/trileaflet aortic valve. Normal aortic valve. Trivial aortic valve insufficiency. Pulmonic Valve The pulmonic valve is not well visualized. Trivial pulmonic valve insufficiency. Great Vessels Normal aortic root. Pericardium/Pleural No pericardial effusion. MMode/2D Measurements & Calculations LVIDd: 4.1 cm IVSd: 0.91 cm Ao root diam: 3.5 cm LVIDs: 2.7 cm LVPWd: 1.1 cm RVDd: 3.1 cm FS: 35.1 % LAV(MOD-bp): 29.1 ml LVAd ap4: 24.9 cm2 SV(MOD-sp4): 45.7 ml LAV(MOD-bp) Indexed: 14.8 ml/m2 EDV(MOD-sp4): 67.0 ml LAV(MOD-sp2): 32.0 ml EDV(sp4-el): 69.7 ml LAV(MOD-sp4): 21.5 ml LVAs ap4: 11.8 cm2 ESV(MOD-sp4): 21.2 ml ESV(sp4-el): 19.1 ml EF(MOD-sp4): 68.3 % EF(sp4-el): 72.6 % SV(sp4-el): 50.6 ml LA A4 area: 10.2 cm2 LA dimension(2D): 3.1 cm RA A4 area: 9.0 cm2 Time Measurements MV dec time: 0.26 sec Doppler Measurements & Calculations MV E max linden: 60.5 cm/sec Lat Peak E' Linden: 12.4 cm/sec Med Peak E' Linden: 8.4 cm/sec MV A max linden: 54.0 cm/sec E/E' lat: 4.9 E/E' med: 7.2 MV E/A: 1.1 Ao V2 max: 117.5 cm/sec AI max linden: 361.6 cm/sec LV V1 max: 120.1 cm/sec Ao max P.5 mmHg AI max P.3 mmHg LV V1 max P.8 mmHg AI dec slope: 164.9 cm/sec2 AI P1/2t: 642.1 msec PA V2 max: 95.6 cm/sec PI end-d linden: 79.7 cm/sec TR max linden: 211.0 cm/sec TR max P.8 mmHg Interpretation Summary Left ventricular systolic function is normal. The estimated ejection fraction is 65 %. Sigmoid septum. Trivial mitral valve insufficiency. Trivial tricuspid valve insufficiency. Trivial aortic valve insufficiency. Trivial pulmonic valve insufficiency. Right ventricular systolic pressure estimated to be 21 mmHg. No evidence for diastolic dysfunction. Ordering Physician: Leno Layne Referring Physician: ANGELO CLAROS Performed By: Britni Blanco RDCS
== END ==
PROVIDERS: PCP Internal Medicine; Referring Provider Internal Medicine Cardiovascular Disease; Visit Provider Internal Medicine Cardiovascular Disease
DX: R07.9 Chest pain, unspecified (principal); I10 Essential (primary) hypertension; Z82.49 Family history of ischemic heart disease and other diseases of the circulatory system; I34.0 Nonrheumatic mitral (valve) insufficiency; E78.00 Pure hypercholesterolemia, unspecified
CPT/HCPCS: 36415; 80048; 80061; 80076; 85025; 85610; 85730; 93306

== ENCOUNTER 2020-08-15 07:47 | Day surgery (SDC) | payer OTHER, SELFPAY ==
[2020-07-21 10:27] VITALS: BMI 23.7
--- NOTE | 2020-07-23 13:25 | RAD_ITS ---
STUDY: X-RAY CHEST REASON FOR EXAM: Male, 50 years old. PRE HEART CATH TECHNIQUE: PA and lateral views of the chest. COMPARISON: None. FINDINGS: The lungs are clear and expanded. There is no demonstrated pleural abnormality. Normal size heart. Normal mediastinum and baldemar. Normal visualized pulmonary arteries. Normal visualized aortic arch and descending thoracic aorta. There are mild degenerative changes of the visualized thoracic spine. Normal visualized ribs, clavicles, and shoulders. There is no demonstrated abnormality of the visualized soft tissue structures of the upper abdomen. RAD/Chest PA and Lateral IMPRESSION: Normal x-ray examination of the chest. Electronically Signed: Edmond Judd, at 15:44 EST , Service support ,
[2020-07-28 08:57] VITALS: BMI 23.7
--- NOTE | 2020-07-29 09:00 | HP_ITS ---
HPI HPI History of Present Illness Surgical H&P: Yes Details: This is a 50-year-old white male who was referred by his PCP for evaluation of concerns of angina pectoris with a request for further evaluation with diagnostic cardiac catheterization. The patient states that over the last 2 weeks has been noting exertional as well as nonexertional chest discomfort. He describes it as sharp but yet as if someone was sitting on his chest. He states it radiates towards his back and to the left shoulder. He has had the sensation of being dyspneic with it as well as nausea but no emesis. He denies orthopnea or PND or peripheral pitting edema. There is been no near syncope or syncope. He states he has been concerned as he does have a history of hypertension. He knows in the past that his cholesterol numbers have demonstrated a high bad cholesterol but also a high good cholesterol . Thus he states he has never had to take lipid-lowering medication. He also is concerned because his father was diagnosed with coronary disease at a young age in his 50s requiring CABG. He states he subsequently has gone on to require PCI. He notes that there are other members in his family at young ages who have heart related disease. He did have an ECG by his PCP. It demonstrated sinus rhythm. This was repeated today to look for any obvious changes. He continued to have sinus rhythm with no acute ECG changes. He did have a transthoracic echocardiogram performed at [facility] in May 2017. At that time the left ventricle was normal with an LVEF of 5% with mild concentric LVH with mild mitral valve prolapse with trivial MR/TR/AI/NV. His estimated RV systolic pressure was 36 mmHg. He states he discussed his concerns with his PCP. She recommended further cardiac diagnostic evaluation with cardiac catheterization. Intake Vital Signs 07/21/20 BP 122/88 H 07/21/20 Blood Pressure Location Lt brachial 07/21/20 Position Standing 07/21/20 Pulse 68 07/21/20 Pulse Source Auscultation 07/21/20 Height 5 ft 11 in 07/21/20 Weight: 170 lb 07/21/20 BP 132/98 H 07/21/20 Blood Pressure Location Lt brachial 07/21/20 Position Sitting 07/21/20 Respiration 16 07/21/20 Pulse 68 07/21/20 Pulse Source Auscultation Intake Visit Reasons: CP/Ref. Milo Ve Teacher Required: No Accompanied by: Self Allergies No Known Allergies Allergy (Verified 07/21/20 10:27) Medications citalopram 40 mg tablet 40 mg PO DAILY 09/22/18 [History Confirmed 07/21/20] aspirin 81 mg tablet,delayed release 81 mg PO DAILY #1 tab 07/21/20 [Rx Confirmed 07/21/20] clopidogrel 75 mg tablet 75 mg PO DAILY #30 tab 07/21/20 [Rx Confirmed 07/21/20] lisinopril 20 mg-hydrochlorothiazide 12.5 mg tablet 1 tab PO DAILY 07/21/20 [History Confirmed 07/21/20] [facility] Medical History Essential hypertension (Chronic) Chest pain (Acute) Family history of premature CAD (Chronic) Family history of ischemic heart disease (IHD) (Chronic) Diaphoresis (Acute) Nausea (Acute) Exertional chest pain (Acute) Supraclavicular adenopathy (Acute) Depression (Acute) Enlarged lymph node in neck (Acute) Surgical History History of colonoscopy (Resolved ~2015) History of knee surgery (Resolved ~1985) Family History Father Hypertension CAD (coronary artery disease) Hx of CABG, Onset Age: 50 Sister Colon cancer Mother Colon cancer Grandfather CAD (coronary artery disease) Social History (Updated 07/21/20 @ 12:[address] Leno Layne MD) Smoking Status: Never smoker alcohol intake: current details: x1 week substance use type: does not use caffeine: Yes Type: tea Number of servings: 3 ROS Const Const: Positive for fatigue and weakness; negative for frequent falls, excessive sweating, weight gain or weight loss Eyes Eyes: Negative for transient loss of vision, blurry vision or change in vision ENT ENT: Positive for dizziness (upon standing); negative for balance problems Cardio Chest Pain: Yes Character: sharp (radiates to back), other (heaviness) Onset: at rest, exercise (worse with activity thruout the day) Location: left chest Duration: minutes Relieving: rest Palpitations: No Edema: None Muscle aches with walking: None Resp Respiratory: Positive for SOB with activity (breathing heavier), SOB at rest (breathing heavier) and Cough (dry) GI GI: Negative vomiting or vomiting blood/hematemesis : Negative for hematuria Musc Musc: Negative for muscle aches/ myalgia, muscle weakness, joint pain or balance problems Skin Skin: Negative non-healing lesions or rash Neuro Neuro: Positive for dizziness (upon standing), lightheadedness (upon standing) and weakness; negative for orthostatic symptoms, frequent falls or blurry vision Jose Ramon Hematologic/Lymphatic: Negative for easy bleeding Endo Endo: Positive for fatigue; negative for excessive sweating Psych Psych: Negative for anxiety or depression Allergy Allergy/Immunology: Negative for hives, Negative for rash Cardiology Exam Const Appearance: cooperative, healthy appearing, comfortable, no acute distress, well developed and well groomed Nutritional Appearance: thin Orientation: alert, awake and oriented x3 Head Head: normal to inspection, normocephalic and atraumatic Ears: hearing grossly normal bilaterally Nose: external nose normal Face and Sinus: face symmetric Eyes Eyelids: eyelids normal Conjunctivae: conjunctivae normal Pupils: PERRL EOM: EOM intact bilaterally Neck Neck: normal visual inspection Carotids: normal carotid upstroke Chest Chest inspection: normal inspection of the chest, symmetric chest movement and normal respiratory effort Auscultation: Bilateral: Clear to Auscultation Cardio Palpation: normal PMI Rate: regular rate Rhythm: regular rhythm Heart sounds: S1 normal, S2 normal and mid systolic click GI GI: normal to inspection, soft and bowel sounds present Neuro General: alert, awake, oriented x3 and moves all extremities Extremities Pulses: Normal: Right Radial Pulse, Left Radial Pulse Lower Extremity Edema: None: Bilateral Psych Psychological: normal affect Assessment & Plan 1. Chest pain R07.9 Plan He does have a history of chest discomfort. This is occurred over the last 2 weeks. It is progressed from both exertional to nonexertional. He does have components that are concerning for angina pectoris. Thus far there is been no other explanation for his discomfort. Thus this may be compatible with a worsening angina pectoris type of event. At the present time he will continue medical management. This will include the initiation of antiplatelet therapy with aspirin as well as clopidogrel/Plavix. He will continue his antihypertensive therapy. He will proceed with additional cardiovascular risk factor evaluation with fasting lipid profile. His case was reviewed with him with respect to further noninvasive and/or invasive cardiovascular studies. After review of his case, taking everything into consideration, the consensus was to proceed with further invasive evaluation with diagnostic cardiac catheterization. The procedure and risks were discussed with him. He was agreeable to this approach. Orders Orders: 12 Lead EKG performed by BMS Today Left Heart Cath/COR/LV Percut Today Basic Metabolic Profile (BMP) Today Lipid Profile Today Liver Profile Today Partial Thromboplast Time Today Prothrombin Time w/INR Today Echo Complete Today CBC W/Diff, Automated Today Chest PA and Lateral Today 2. Essential hypertension I10 Plan He will continue his antihypertensive therapy. Orders Orders: Left Heart Cath/COR/LV Percut Today Basic Metabolic Profile (BMP) Today Lipid Profile Today Liver Profile Today Partial Thromboplast Time Today Prothrombin Time w/INR Today Echo Complete Today CBC W/Diff, Automated Today Chest PA and Lateral Today 3. Family history of premature CAD Z82.49 Plan He does have a family history of premature CAD in his father as previously noted. This does increase his cardiovascular risks. Orders Orders: 12 Lead EKG performed by BMS Today Left Heart Cath/COR/LV Percut Today Basic Metabolic Profile (BMP) Today Lipid Profile Today Liver Profile Today Partial Thromboplast Time Today Prothrombin Time w/INR Today Echo Complete Today CBC W/Diff, Automated Today Chest PA and Lateral Today Plan Detail Other Orders Orders: Lipid Profile Today E78.00 Liver Profile Today E78.00 Other Medications New: aspirin 81 mg PO DAILY 1 tab 0RF clopidogrel (Plavix) 4 tabs (300 mg) on Day 1 and then 75 mg a day 75 mg PO DAILY 30 tabs 1RF Additional Comments Thank you for allowing me to participate in the care of your patient. Please don't hesitate to call if any issues arise. This note was generated using a voice recognition system and there may be incorrect words, spelling or punctuation that were not noted when reviewing the office note prior to saving. Coding Level of Care Code Off vis,new,level 5 Diagnoses Chest pain R07.9 ??Ischemic chest pain type: unspecified angina pectoris type Essential hypertension I10 Family history of premature CAD Z82.49 Coding Level of Care Code Off vis,new,level 5 Diagnoses Chest pain R07.9 ??Ischemic chest pain type: unspecified angina pectoris type Essential hypertension I10 Family history of premature CAD Z82.49 Supplemental Info Supplemental Information Labs LDL Cholesterol 138 mg/dL (0-130) H 04/10/16 HDL Cholesterol 67 mg/dL (40-) 04/10/16 Triglycerides 148 mg/dL (-199) 04/10/16 VLDL Cholesterol 30 mg/dL (5-40) 04/10/16 Diagnostics Electrocardiogram 07/21/20 COVID (Procedure Consent) Procedure Criteria Procedure Criteria: Yes Elective The surgeon/proceduralist and patient have discussed in detail the risk of exposure to and/or potential harm posed by the COVID-19 virus with having a surgery/procedure at this time versus the risk of? delaying the surgery/procedure. It is not possible to know either the risk of delaying the surgery or procedure or chance of getting an infection with perfect accuracy, but a joint decision was made between the patient and the surgeon/proceduralist ?to proceed at this time with the scheduled surgery/procedure as indicated on the consent form.
--- NOTE | 2020-08-15 07:49 | HP.PCM_ITS ---
Problem List (1) Chest pain Status: Acute History and Physical Date of Admission: 08/15/20 [facility] Medical Records Department [address] [place] [address] History and Physical 07/29/20 0900 MR#: [id number] Acct: [id number] Name: JAYDA CHONG Rep #:[id number] : 1970 50 From: Leno Layne MD PCP: Dr. Graciela Pedraza, DO Status:WA E SDC Location: [facility] HPI HPI History of Present Illness Surgical H&P: Yes Details: This is a 50-year-old white male who was referred by his PCP for evaluation of concerns of angina pectoris with a request for further evaluation with diagnostic cardiac catheterization. The patient states that over the last 2 weeks has been noting exertional as well as nonexertional chest discomfort. He describes it as sharp but yet as if someone was sitting on his chest. He states it radiates towards his back and to the left shoulder. He has had the sensation of being dyspneic with it as well as nausea but no emesis. He denies orthopnea or PND or peripheral pitting edema. There is been no near syncope or syncope. He states he has been concerned as he does have a history of hypertension. He knows in the past that his cholesterol numbers have demonstrated a high bad cholesterol but also a high good cholesterol . Thus he states he has never had to take lipid-lowering medication. He also is concerned because his father was diagnosed with coronary disease at a young age in his 50s requiring CABG. He states he subsequently has gone on to require PCI. He notes that there are other members in his family at young ages who have heart related disease. He did have an ECG by his PCP. It demonstrated sinus rhythm. This was repeated today to look for any obvious changes. He continued to have sinus rhythm with no acute ECG changes. He did have a transthoracic echocardiogram performed at [facility] in May 2017. At that time the left ventricle was normal with an LVEF of 5% with mild concentric LVH with mild mitral valve prolapse with trivial MR/TR/AI/WA. His estimated RV systolic pressure was 36 mmHg. He states he discussed his concerns with his PCP. She recommended further cardiac diagnostic evaluation with cardiac catheterization. 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: No Accompanied by: Self Allergies No Known Allergies Allergy (Verified 07/21/20 10:27) Medications citalopram 40 mg tablet 40 mg PO DAILY 09/22/18 [History Confirmed 07/21/20] aspirin 81 mg tablet,delayed release 81 mg PO DAILY #1 tab 07/21/20 [Rx Confirmed 07/21/20] clopidogrel 75 mg tablet 75 mg PO DAILY #30 tab 07/21/20 [Rx Confirmed 07/21/20] lisinopril 20 mg-hydrochlorothiazide 12.5 mg tablet 1 tab PO DAILY 07/21/20 [History Confirmed 07/21/20] [facility] Medical History Essential hypertension (Chronic) Chest pain (Acute) Family history of premature CAD (Chronic) Family history of ischemic heart disease (IHD) (Chronic) Diaphoresis (Acute) Nausea (Acute) Exertional chest pain (Acute) Supraclavicular adenopathy (Acute) Depression (Acute) Enlarged lymph node in neck (Acute) Surgical History History of colonoscopy (Resolved ~2015) History of knee surgery (Resolved ~1985) Family History Father Hypertension CAD (coronary artery disease) Hx of CABG, Onset Age: 50 Sister Colon cancer Mother Colon cancer Grandfather CAD (coronary artery disease) Social History (Updated 07/21/20 @ 12:[address] Leno Layne MD) Smoking Status: Never smoker alcohol intake: current details: x1 week substance use type: does not use caffeine: Yes Type: tea Number of servings: 3 ROS Const Const: Positive for fatigue and weakness; negative for frequent falls, excessive sweating, weight gain or weight loss Eyes Eyes: Negative for transient loss of vision, blurry vision or change in vision ENT ENT: Positive for dizziness (upon standing); negative for balance problems Cardio Chest Pain: Yes Character: sharp (radiates to back), other (heaviness) Onset: at rest, exercise (worse with activity thruout the day) Location: left chest Duration: minutes Relieving: rest Palpitations: No Edema: None Muscle aches with walking: None Resp Respiratory: Positive for SOB with activity (breathing heavier), SOB at rest (breathing heavier) and Cough (dry) GI GI: Negative vomiting or vomiting blood/hematemesis : Negative for hematuria Musc Musc: Negative for muscle aches/ myalgia, muscle weakness, joint pain or balance problems Skin Skin: Negative non-healing lesions or rash Neuro Neuro: Positive for dizziness (upon standing), lightheadedness (upon standing) and weakness; negative for orthostatic symptoms, frequent falls or blurry vision Jose Ramon Hematologic/Lymphatic: Negative for easy bleeding Endo Endo: Positive for fatigue; negative for excessive sweating Psych Psych: Negative for anxiety or depression Allergy Allergy/Immunology: Negative for hives, Negative for rash Cardiology Exam Const Appearance: cooperative, healthy appearing, comfortable, no acute distress, well developed and well groomed Nutritional Appearance: thin Orientation: alert, awake and oriented x3 Head Head: normal to inspection, normocephalic and atraumatic Ears: hearing grossly normal bilaterally Nose: external nose normal Face and Sinus: face symmetric Eyes Eyelids: eyelids normal Conjunctivae: conjunctivae normal Pupils: PERRL EOM: EOM intact bilaterally Neck Neck: normal visual inspection Carotids: normal carotid upstroke Chest Chest inspection: normal inspection of the chest, symmetric chest movement and normal respiratory effort Auscultation: Bilateral: Clear to Auscultation Cardio Palpation: normal PMI Rate: regular rate Rhythm: regular rhythm Heart sounds: S1 normal, S2 normal and mid systolic click GI GI: normal to inspection, soft and bowel sounds present Neuro General: alert, awake, oriented x3 and moves all extremities Extremities Pulses: Normal: Right Radial Pulse, Left Radial Pulse Lower Extremity Edema: None: Bilateral Psych Psychological: normal affect Assessment & Plan 1. Chest pain R07.9 Plan He does have a history of chest discomfort. This is occurred over the last 2 weeks. It is progressed from both exertional to nonexertional. He does have components that are concerning for angina pectoris. Thus far there is been no other explanation for his discomfort. Thus this may be compatible with a worsening angina pectoris type of event. At the present time he will continue medical management. This will include the initiation of antiplatelet therapy with aspirin as well as clopidogrel/Plavix. He will continue his antihypertensive therapy. He will proceed with additional cardiovascular risk factor evaluation with fasting lipid profile. His case was reviewed with him with respect to further noninvasive and/or invasive cardiovascular studies. After review of his case, taking everything into consideration, the consensus was to proceed with further invasive evaluation with diagnostic cardiac catheterization. The procedure and risks w ere discussed with him. He was agreeable to this approach. Orders Orders: 12 Lead EKG performed by [facility] Today Left Heart Cath/COR/LV Percut Today Basic Metabolic Profile (BMP) Today Lipid Profile Today Liver Profile Today Partial Thromboplast Time Today Prothrombin Time w/INR Today Echo Complete Today CBC W/Diff, Automated Today Chest PA and Lateral Today 2. Essential hypertension I10 Plan He will continue his antihypertensive therapy. Orders Orders: Left Heart Cath/COR/LV Percut Today Basic Metabolic Profile (BMP) Today Lipid Profile Today Liver Profile Today Partial Thromboplast Time Today Prothrombin Time w/INR Today Echo Complete Today CBC W/Diff, Automated Today Chest PA and Lateral Today 3. Family history of premature CAD Z82.49 Plan He does have a family history of premature CAD in his father as previously noted . This does increase his cardiovascular risks. Orders Orders: 12 Lead EKG performed by [facility]MS Today Left Heart Cath/COR/LV Percut Today Basic Metabolic Profile (BMP) Today Lipid Profile Today Liver Profile Today Partial Thromboplast Time Today Prothrombin Time w/INR Today Echo Complete Today CBC W/Diff, Automated Today Chest PA and Lateral Today Plan Detail Other Orders Orders: Lipid Profile Today E78.00 Liver Profile Today E78.00 Other Medications New: aspirin 81 mg PO DAILY 1 tab 0RF clopidogrel (Plavix) 4 tabs (300 mg) on Day 1 and then 75 mg a day 75 mg PO DAILY 30 tabs 1RF Additional Comments Thank you for allowing me to participate in the care of your patient. Please don't hesitate to call if any issues arise. This note was generated using a voice recognition system and there may be incorrect words, spelling or punctuation that were not noted when reviewing the office note prior to saving. Coding Level of Care Code Off vis,new,level 5 Diagnoses Chest pain R07.9 ??Ischemic chest pain type: unspecified angina pectoris type Essential hypertension I10 Family history of premature CAD Z82.49 Coding Level of Care Code Off vis,new,level 5 Diagnoses Chest pain R07.9 ??Ischemic chest pain type: unspecified angina pectoris type Essential hypertension I10 Family history of premature CAD Z82.49 Supplemental Info Supplemental Information Labs LDL Cholesterol 138 mg/dL (0-130) H 04/10/16 HDL Cholesterol 67 mg/dL (40-) 04/10/16 Triglycerides 148 mg/dL (-199) 04/10/16 VLDL Cholesterol 30 mg/dL (5-40) 04/10/16 Diagnostics Electrocardiogram 07/21/20 COVID (Procedure Consent) Procedure Criteria Procedure Criteria: Yes Elective The surgeon/proceduralist and patient have discussed in detail the risk of exposure to and/or potential harm posed by the COVID-19 virus with having a surgery/procedure at this time versus the risk of? delaying the surgery/procedure. It is not possible to know either the risk of delaying the surgery or procedure or chance of getting an infection with perfect accuracy, but a joint decision was made between the patient and the surgeon/proceduralist ?to proceed at this time with the scheduled surger y/procedure as indicated on the consent form. 08/11/20811 <Electronically signed by Lneo ogden MD> Date: Time: __ Leno Layne MD CC: Dr. Graciela Pedraza, DO; Dr. Leno Layne MD ~ Date Dictated: 07/29/20 0900 Date Transcribed: 07/22/20944 Pediatric Genetic Counselor: Signed I have re-examined the patient. There are no clinical changes since date of exam.
--- NOTE | 2020-08-15 10:28 | CL.D_ITS ---
Patient Name: JAYDA CHONG Study Date: 08/15/2020 Performing: Leno Layne MD Ht: 70.86 inches 180 cm : 1970 Wt: 169.76 lbs 77 kg Age: 50 Gender: male BSA: 1.96 PROCEDURE(S) PERFORMED SS66-RNY/COR/LV CLINICAL PROFILE AND INDICATIONS Indications: Worsening Angina, Suspected CAD Heart Failure: None Stress/Imaging Stress/Image Study Performed: No Angina Classification Anginal Classification w/in 2 Weeks: CCS III CAD Presentations: Other: accelerating angina pectoris CONCLUSIONS Elevated Left Ventricular End Diastolic Pressure (mild) Normal LV size, wall motion,and systolic function LVEF: by LV gram 65 % Normal coronary arteries RECOMMENDATIONS Risk factor modification Medical therapy DESCRIPTION OF PROCEDURE The patient arrived to the procedure lab. The risks and benefits of the procedure as well as a full d escription of our services here and current unavailability of surgical backup were fully explained to the patient and/or their significant other prior to the catheterization. The Timeout was completed, verifying the correct patient and procedure. The patient's procedural site was prepped and draped in the usual fashion. Local anesthetic was given subcutaneously to right radial region with Lidocaine 2% . Using a modified Seldinger technique, arterial access was obtained via the right radial artery, a 6 Fr sheath was inserted. Left Coronary Artery selective angiography was performed in multiple views u sing a 5 Fr. 4.0 [place] catheter. Right Coronary Artery selective angiography was then performed in mu ltiple views using a 5 Fr. 4.0 [place] catheter. Left Ventriculography was performed in ANNA projection using a 5 Fr. [place] catheter. LV to AO pullback pressures were then recorded.The arterial sheath was pulled and a TR Band was applied for hemostasis 12cc air CORONARY ANGIOGRAPHY DOMINANCE: Right Dominant LEFT HEART ASSESSMENT Left Ventricular Ejection Fraction: by LV Gram 65 % Normal LV wall motion Elevated Left Ventricular End Diastolic Pressure LVEDP: 14 mmHg LEFT MAIN: Angiographically normal LEFT ANTERIOR DESCENDING ARTERY: Angiographically normal CIRCUMFLEX ARTERY: Angiographically normal RIGHT CORONARY ARTERY: Angiographically normal AORTIC ROOT: Angiographically normal COMPLICATIONS No Complications PROCEDURE MEDICATIONS Versed 1 mg IV Fentanyl 50 mcg IV Oxygen: 2 L/min via nasal cannula Baby Aspirin (81mg) 1 Tabs PO @ 08/15/2020 08:01:44 SUMMARY OF HEMODYNAMIC DATA Time AIR REST ECG 08:04:00 Art 134/68 (86) 09:47:08 AO 110/74 (92) SA 09:59:55 LV 125/-15, 13 10:06:13 LV 125/-15, 14 10:06:19 LV 126/-14, 15 10:07:20 LV 126/-15, 15 10:07:28 LVp 126/-13, 10 10:07:34 AOp 127/75 (98) 10:07:39 Signed By Leno Layne MD On 08/15/2020 10:27:31 Leno Layne MD
== END 2020-08-15 12:05 | disposition home or self-care (01) ==
LOC: CLSP 07:49
PROVIDERS: PCP Internal Medicine; Referring Provider Internal Medicine Cardiovascular Disease; Visit Provider Internal Medicine Cardiovascular Disease
DX: R07.9 Chest pain, unspecified (principal); I10 Essential (primary) hypertension; Z82.49 Family history of ischemic heart disease and other diseases of the circulatory system; Z79.02 Long term (current) use of antithrombotics/antiplatelets; Z79.82 Long term (current) use of aspirin; I34.1 Nonrheumatic mitral (valve) prolapse
CPT/HCPCS: 71046; 93458; 99152; 99153; J7040; Q9967; C1769; C1894

== ENCOUNTER 2022-01-26 14:04 | Emergency (ER) | payer OTHER, SELFPAY ==
[2022-01-26 14:04] VITALS: BP 111/87; PULSE 97; RESP 18; TEMP 36.6; O2SAT 94; BMI 24.4
--- NOTE | 2022-01-26 14:59 | ED.RN ---
PT LWBS [id number]
== END 2022-01-26 14:55 | disposition left against medical advice (07) ==
LOC: ED 15:13
PROVIDERS: PCP Internal Medicine
DX: T14.90XA Injury, unspecified, initial encounter (principal)

== ENCOUNTER → 2022-02-09 | Outpatient (CLI) | payer BC, SELFPAY | END | disposition home or self-care (01) | LOC: LABSPEC 14:58 | PROVIDERS: PCP Internal Medicine; Referring Provider Physician Assistant Surgical; Visit Provider Physician Assistant Surgical | DX: S61.011A Laceration without foreign body of right thumb without damage to nail, initial encounter (principal) | CPT/HCPCS: 87070; 87077; 87186; 87205 ==

== ENCOUNTER → 2022-09-17 | Outpatient (CLI) | payer BC, SELFPAY ==
--- NOTE | 2022-09-17 08:35 | ECHOD_ITS ---
Reason For Study: MV/AV Insufficiency Procedure This was a 2D Doppler, Color Flow transthoracic echocardiogram. Exam performed in department. Left Ventricle Normal LV size. The estimated ejection fraction is 65 %. No evidence for diastolic dysfunction. No regional wall motion abnormalities noted. Right Ventricle Normal RV size. Normal systolic function. Atria Normal left atrium. Normal right atrium. No doppler evidence for ASD. Mitral Valve There is no mitral valve stenosis. No mitral valve insufficiency. Tricuspid Valve There is no tricuspid stenosis. Trivial tricuspid valve insufficiency. Unable to estimate RV systolic pressure due to insufficient tricuspid regurgitant envelope. Aortic Valve Trisinus/trileaflet aortic valve. There is no aortic stenosis. Trivial aortic valve insufficiency. Pulmonic Valve There is no pulmonic valvular stenosis. Trivial pulmonic valve insufficiency. Great Vessels Normal aortic root. Pericardium/Pleural No pericardial effusion. MMode/2D Measurements & Calculations LVIDd: 4.7 cm IVSd: 0.95 cm Ao root diam: 3.8 cm LVIDs: 2.5 cm LVPWd: 0.94 cm LA dimension: 3.5 cm RVDd: 3.2 cm FS: 46.1 % LAV(MOD-bp): 31.4 ml LA A4 area: 12.2 cm2 RA A4 area: 12.7 cm2 LAV(MOD-bp) Indexed: 15.9 ml/m2 LAV(MOD-sp2): 38.6 ml LAV(MOD-sp4): 24.3 ml Time Measurements MV dec time: 0.18 sec Doppler Measurements & Calculations MV E max linden: 59.0 cm/sec Lat Peak E' Lind[place]: 12.1 cm/sec Med Peak E' Linden: 11.0 cm/sec MV A max linden: 60.2 cm/sec E/E' lat: 4.9 E/E' med: 5.4 MV E/A: 0.98 MV V2 max: 55.3 cm/sec MV P1/2t max linden: 55.8 cm/sec Ao V2 max: 103.7 cm/sec MV max P.2 mmHg MV P1/2t: 50.7 msec Ao max P.3 mmHg MV V2 mean: 29.0 cm/sec MV dec slope: 322.3 cm/sec2 Ao V2 mean: 75.1 cm/sec MV mean P.41 mmHg MVA(P1/2t): 4.3 cm2 Ao mean P.5 mmHg MV V2 VTI: 14.6 cm Ao V2 VTI: 23.7 cm AI max linden: 399.4 cm/sec LV V1 max: 99.9 cm/sec PA V2 max: 101.6 cm/sec AI max P.0 mmHg LV V1 max P.0 mmHg PA V2 mean: 65.7 cm/sec AI dec slope: 223.7 cm/sec2 AI P1/2t: 523.0 msec PI dec slope: 119.4 cm/sec2 TR max linden: 248.1 cm/sec TR max P.6 mmHg ECHO/Echo Complete Interpretation Summary The estimated ejection fraction is 65 %. No evidence for diastolic dysfunction. Trivial aortic valve insufficiency. Ordering Physician: Graciela Pedraza Performed By: Lefty Rivas RCS
== END | disposition home or self-care (01) ==
LOC: CVS 08:33
PROVIDERS: PCP Internal Medicine; Visit Provider Internal Medicine
DX: I08.0 Rheumatic disorders of both mitral and aortic valves (principal)
CPT/HCPCS: 93306

== ENCOUNTER → 2023-10-28 | Outpatient (CLI) | payer BC, SELFPAY ==
--- NOTE | 2023-10-28 14:54 | CT_ITS ---
STUDY: CT ABDOMEN AND PELVIS WITHOUT CONTRAST REASON FOR EXAM: Male, 53 years old. Hematuria RADIATION DOSAGE (If Supplied By Facility): CTDIvol = ( 6.26 ) mGy, DLP = ( 336.16 ) mGycm TECHNIQUE: Transaxial images were obtained from the dome of the diaphragm to the symphysis pubis without oral contrast, and without intravenous contrast. Sagittal and coronal images were reconstructed. Individualized dose optimization techniques were used for this CT. COMPARISON: None. FINDINGS: The visualized lung bases are unremarkable. The visualized portions of the heart are within normal limits. Normal liver. Normal gallbladder and extrahepatic biliary system. Normal spleen. Normal pancreas. Normal bilateral adrenal glands. Multiple stones of varying sizes scattered throughout both kidneys with the largest stone seen in the midpole of the right kidney measuring 6.5 mm in diameter. No hydronephrosis is present. No renal masses are seen. There are 2 cysts in the midpole and lower pole of the left kidney which are benign and do not require any additional imaging. Normal visualized stomach. Normal small intestine. There are multiple colonic diverticula consistent with diverticulosis. The appendix is visualized and appears normal. There is diffuse atherosclerotic calcification of the abdominal aorta, without a demonstrated aneurysm. Normal inferior vena cava. Normal retroperitoneum. Normal urinary bladder. Possible mild thickening of the bladder wall versus underdistention with a small amount of fluid. No radiopaque bladder stones are seen. No hydroureter is present. Grossly unremarkable prostate gland. Normal abdominal wall. There are diffuse degenerative changes of the visualized lumbar spine. CT/Abdomen/Pelvis without Cont IMPRESSION: 1. Multiple bilateral kidney stones without hydronephrosis. 2. Possible mild thickening of the bladder wall versus underdistention with a small amount of fluid. No radiopaque bladder stones are seen. No hydroureter is present. Electronically Signed: Vini Wilson MD at 15:32 EST ,
== END | disposition home or self-care (01) ==
PROVIDERS: PCP Internal Medicine; Referring Provider Internal Medicine; Visit Provider Internal Medicine
DX: R31.9 Hematuria, unspecified (principal)
CPT/HCPCS: 74176

== ENCOUNTER → 2023-11-02 | Outpatient (CLI) | payer BC, SELFPAY ==
--- NOTE | 2023-11-02 11:44 | US_ITS ---
STUDY: RENAL ULTRASOUND - COMPLETE REASON FOR EXAM: Male, 53 years old. Proteinuria -- proteinuria TECHNIQUE: Ultrasound evaluation of the kidneys was performed with real-time and static polo-scale imaging. COMPARISON: Comparison is made with prior CT scan the abdomen and pelvis dated October 28, 2023. FINDINGS: RIGHT KIDNEY: Normal location of the right kidney, which is normal in size. The right kidney measures 11.3 cm x 5.1 cm x 6.3 cm. There is a normal cortex of the right kidney. The renal cortex measures 1.2 cm. There is no right renal mass or cyst. Tiny nonobstructive right calculi. The largest measures 8 mm x 8 mm x 4 mm. There is no right hydronephrosis. DISTAL RIGHT URETER: There is non-visualization of the distal right ureter. There is no demonstrated right ureterovesical junction calculus. There is a visualized right ureteral jet. LEFT KIDNEY: Normal location of the left kidney, which is normal in size. The left kidney measures 11 cm x 5.1 cm x 5.2 cm. There is a normal cortex of the left kidney. The renal cortex measures 1.5 cm. There is a 1.1 cm x 1.6 cm x 1.5 cm cyst in the mid inferior pole of the left kidney. Tiny left intrarenal calculi. The larger measures 8 mm x 6 mm x 5 mm. There is no left hydronephrosis. DISTAL LEFT URETER: There is non-visualization of the distal left ureter. There is no demonstrated left ureterovesical junction calculus. There is a visualized left ureteral jet. BLADDER: The distended urinary bladder has a volume of 422 ml. Bladder wall thickening measuring 4.5 mm. There is no demonstrated mass within the urinary bladder. There are no demonstrated bladder calculi. US/Kidney and Bladder IMPRESSION: Bilateral nonobstructive intrarenal calculi. Thickening of the bladder wall. Electronically Signed: Edmond Judd MD at 15:12 EST ,
== END | disposition home or self-care (01) ==
LOC: US 11:43
PROVIDERS: PCP Internal Medicine; Referring Provider Internal Medicine; Visit Provider Internal Medicine
DX: R80.8 Other proteinuria (principal)
CPT/HCPCS: 76770

== ENCOUNTER → 2024-01-02 | Outpatient (CLI) | payer BC, SELFPAY ==
[2024-01-04 14:10] LABS: PSA, Free 0.19 ng/mL; PSA, Free % 17.1 % (.)
== END | disposition home or self-care (01) ==
LOC: LAB 15:19
PROVIDERS: PCP Internal Medicine; Referring Provider Urology; Visit Provider Urology
DX: R97.20 Elevated prostate specific antigen [PSA] (principal)
CPT/HCPCS: 36415; 84153; 84154